=== PATIENT | female | born 1955 | race Caucasian/White ===

== ENCOUNTER 2016-11-01 06:25 | Day surgery (SDC) | payer MEDICARE, MEDICAID ==
[~2016-11-01 06:25] MED LIST: KETOROLAC TROMETHAMINE 0.45% 4 DROP/0.4 ML DROPERETTE OS PRN
[2016-11-01] MEDS: TROPICAMIDE 1% OPH SOLN 3 ML OS PRN ×3 (06:46→07:17)
[2016-11-01] MEDS: CYCLOPENTOLATE 0.2%/PHENYLEPHRINE 1% OPH SOLN 2 ML OS PRN ×3 (06:46→07:17)
[2016-11-01] MEDS: BESIFLOXACIN HCL 0.6% OPH SUSP 5 ML BOTTLE OS PRN ×3 (06:47→08:10)
[2016-11-01] MEDS: LIDOCAINE 3.5% OPH GEL/PF 1 ML/TUBE OS PRN ×3 (06:49→07:45)
[2016-11-01] MEDS ORDERED: LIDOCAINE 1% INJ-PF (10 MG/ML) 30 ML SDV ONE (07:11)
[2016-11-01] MEDS ORDERED: TOBRAMYCIN SULFATE/DEXAMETH OPH OINTMENT 3.5 GM ONE (07:11)
[2016-11-01] MEDS ORDERED: EPINEPHRINE INJ/PF 1 MG/1 ML AMPULE ONE (07:11)
[2016-11-01] MEDS ORDERED: CHONDR SU A NA/HYALUR INTRAOC KIT (SURGICARE) ONE (07:12)
[2016-11-01] MEDS ORDERED: MIDAZOLAM 2 MG/2 ML INJ ONE (07:21)
[2016-11-01] MEDS ORDERED: ONDANSETRON HCL INJ/PF 4 MG/2 ML SDV ONE (07:21)
[2016-11-01] MEDS ORDERED: FENTANYL CITRATE INJ/PF 100 MCG/2 ML AMPUL ONE (07:21)
[2016-11-01] MEDS ORDERED: LIDOCAINE 2% INJ-PF (20 MG/ML) 10 ML AMPUL ONE (07:21)
[2016-11-01] MEDS ORDERED: CHONDR SU A NA/HYALUR SOD 0.5 ML DISP.SYRIN ONE (08:32)
== END 2016-11-01 08:57 ==
LOC: SC 06:25
PROVIDERS: ATTEND Ophthalmology
PROC: 089330Z Drainage of Left Anterior Chamber with Drainage Device, Percutaneous Approach (ICD-10-PCS; 2016-11-01)
PROC: 08RK3JZ Replacement of Left Lens with Synthetic Substitute, Percutaneous Approach (ICD-10-PCS; principal; 2016-11-01 07:30)
DX: H25.12 Age-related nuclear cataract, left eye (principal); Z79.899 Other long term (current) drug therapy; Z98.41 Cataract extraction status, right eye; H40.1131 Primary open-angle glaucoma, bilateral, mild stage; I10 Essential (primary) hypertension; E78.00 Pure hypercholesterolemia, unspecified; E03.9 Hypothyroidism, unspecified; Z96.1 Presence of intraocular lens; Z88.5 Allergy status to narcotic agent
CPT/HCPCS: 66984; 0191T; C1783; V2630; J2250; J3490 ×5; A9270 ×2; J0171; J3010; J2405; 142

== ENCOUNTER → 2016-11-28 | Outpatient (CLI) | payer MEDICARE, MEDICAID ==
--- NOTE | 2016-11-28 12:39 | RADIOLOGY REPORT (SQ) ---
EXAM DESCRIPTION: U/S RETROPERITON (RENAL/AORTA) COMPLETED DATE/TIME: 11/28/2016 12:06 pm REASON FOR STUDY: CKD III (N18.3) N18.3 CHRONIC KIDNEY DISEASE, STAGE 3 (MODERATE) I12.9 HYPERTENS GIOVANNI CHRONIC KIDNEY DISEASE W STG 1-4/UNSP CHR COMPARISON: No abdominal imaging for comparison TECHNIQUE: Dynamic and static grayscale images acquired of the kidneys and bladder and recorded on P ACS. Additional selected color Doppler and spectral images recorded. LIMITATIONS: None. FINDINGS: RIGHT KIDNEY: Right kidney is 9 cm in length with diffuse cortical thinning and increased echogenicity. No hydronephrosis. In the upper pole right kidney, an echogenic 3.2 x 2.5 cm cortical mass is present. 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 LEFT KIDNEY: Left kidney is 8.2 cm in length with diffuse cortical thinning and increased cortical e chogenicity. No hydronephrosis. BLADDER: No masses. OTHER FINDINGS: No other significant finding. IMPRESSION: Small kidneys with increased cortical echogenicity and diffuse cortical thinning from me dical renal disease. No hydronephrosis. 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
== END ==
LOC: RAD 11:12
PROVIDERS: ATTEND Physician Assistant Medical
DX: I12.9 Hypertensive chronic kidney disease with stage 1 through stage 4 chronic kidney disease, or unspecified chronic kidney disease (principal); N18.3 Chronic kidney disease, stage 3 (moderate)
CPT/HCPCS: 76770

== ENCOUNTER 2017-07-03 09:39 | Emergency (ER) | payer MEDICARE, MEDICAID ==
[2017-07-03] MEDS ORDERED: NORMAL SALINE 1000 ML 1,000 ML IV ONE (10:19)
[2017-07-03] MEDS ORDERED: ONDANSETRON HCL INJ/PF 4 MG/2 ML SDV IV ONE (10:19)
[2017-07-03] MEDS ORDERED: PROCHLORPERAZINE EDISYLATE INJ 10 MG/2 ML VIAL IV ONE (10:19)
--- NOTE | 2017-07-03 10:57 | RADIOLOGY REPORT (SQ) ---
EXAM DESCRIPTION: CT HEAD WITHOUT COMPLETED DATE/TIME: 07/03/2017 10:20 am REASON FOR STUDY: hx of cva increase RLE RUe pain headache COMPARISON: April 2012 TECHNIQUE: Axial images acquired through the brain without intravenous contrast. Images reviewed wi th bone, brain and subdural windows. Additional sagittal and coronal reconstructions were generated. Images stored on PACS. All CT scanners at this facility use dose modulation, iterative reconstruction, and/or weight based d osing when appropriate to reduce radiation dose to as low as reasonably achievable (ALARA). [facility]: Dose Right [facility]: CareDose [facility]: Dose Right [facility]: Teradose 4D [facility]: [employer] RADIATION DOSE: mGy. LIMITATIONS: None. FINDINGS: VENTRICLES: Prominent. There is some asymmetry in the lateral ventricles with the left be ing larger than the right presumably related to compensatory enlargement due to the large area of inf arction in a left MCA distribution CEREBRUM: No masses. No hemorrhage. No midline shift. Areas of low density in the white matter mos t likely due to chronic micro-vascular ischemic change. Large area of encephalomalacia is identified in a left MCA distribution showing interval increase in size as compared to the previous study and i s consistent with an area of prior infarction. No evidence for acute infarction. CEREBELLUM: No masses. No hemorrhage. No alteration of density. No evidence for acute infarction. EXTRAAXIAL SPACES: Mild age-related involutional change. No fluid collections. No masses. ORBITS AND GLOBE: No intra- or extraconal masses. Normal contour of globe without masses. CALVARIUM: No fracture. PARANASAL SINUSES: No fluid or mucosal thickening. SOFT TISSUES: No mass or hematoma. OTHER: No other significant finding. IMPRESSION: MILD CHRONIC CHANGES OF ATROPHY AND MICROVASCULAR ISCHEMIA. Large left MCA infarct show ing interval increase in size as compared to the previous study. Other findings as noted above. EVIDENCE OF ACUTE STROKE: No TECHNICAL DOCUMENTATION: JOB ID: [id number] Quality ID # [id number]: Final reports with documentation of one or more dose reduction techniques (e.g., Au tomated exposure control, adjustment of the mA and/or kV according to patient size, use of iterative reconstruction technique) 2010 [employer]- All Rights Reserved Reading location - IP/workstation name: [email or web address]
[2017-07-03 11:14] LABS: ANION GAP 10 (5-19); BLOOD UREA NITROGEN 20 mg/dL (7-20); CALCIUM 9.4 mg/dL (8.4-10.2); CARBON DIOXIDE 26 mmol/L (22-30); CHLORIDE 108 mmol/L (98-107); GLUCOSE 95 mg/dL (75-110); POTASSIUM 4.4 mmol/L (3.6-5.0); SODIUM 144.4 mmol/L (137-145)
[2017-07-03] MEDS ORDERED: KETOROLAC TROMETHAMINE INJ/PF 30 MG/1 ML SDV IV ONE (11:23)
[2017-07-03] MEDS ORDERED: GABAPENTIN 100 MG CAPSULE PO ONE (11:23)
[2017-07-03 11:52] VITALS: BP 137/76
[2017-07-03] MEDS ORDERED: TRAMADOL HCL 50 MG TABLET PO ONE (11:53)
--- NOTE | 2017-07-03 11:59 | ER Document Report ---
ED General - General Chief Complaint: Pain Stated Complaint: RIGHT SIDE ARM/LEG PAIN Time Seen by Provider: 07/03/17 09:53 TRAVEL OUTSIDE OF THE [place] IN LAST 30 DAYS: No - HPI Patient complains to provider of: Right upper extremity right lower extremity pain Notes: Patient coming in for right upper extremity right lower extremity pain. Patient states is been increasing her last 3 weeks and currently is unbearable. Patient has a history of CVAs in the past mostly is nonverbal but is able to ensure yes/no questions due to expressive aphasia. Patient has contractures of her right upper extremity and right lower extremity. Patient denies any falls is able to deny any trauma. Patient through intravenous and the question states pain is sharp and shooting almost like electrical shocks. Patient denies any muscle spasms. Patient denies any fevers chills nausea vomiting abdominal pain chest pain diarrhea. - Related Data Allergies/Adverse Reactions: codeine [Codeine] Allergy (Unknown, Verified 10/24/16 14:44) Unknown reaction Past Medical History - Social History Smoking Status: Unknown if Ever Smoked Family History: Reviewed & Not Pertinent Patient has suicidal ideation: No Patient has homicidal ideation: No - Past Medical History Cardiac Medical History: Reports: Hx Coronary Artery Disease, Hx Heart Attack, Hx Hypertension - MEDICATED Denies: Hx Atrial Fibrillation, Hx Congestive Heart Failure, Hx Hypercholesterolemia, Hx Peripheral Vascular Disease, Hx Pulmonary Embolism, Hx Heart Murmur Pulmonary Medical History: Denies: Hx Asthma, Hx Bronchitis, Hx COPD, Hx Pneumonia, Hx Respiratory Failure, Hx Sleep Apnea, Hx Tuberculosis Neurological Medical History: Reports: Hx Cerebrovascular Accident - 2013 RT SIDED CONTRACTION UE, WHEELCHAIR BOUND, Hx Seizures Endocrine Medical History: Denies: Hx Graves' Disease, Hx Hyperthyroidism, Hx Hypothyroidism Renal/ Medical History: Reports: Hx Kidney Stones. Denies: Hx End Stage Renal Disease, Hx Ovarian Cysts, Hx Peritoneal Dialysis, Hx Pelvic Inflammatory Disease Malignancy Medical History: Reports: Hx Breast Cancer - biopsy of breast. Denies: Hx Cervical Cancer, Hx Leukemia, Hx Lung Cancer, Hx Ovarian Cancer GI Medical History: Reports: Hx Irritable Bowel. Denies: Hx Crohn's Disease, Hx Gastroesophageal Reflux Disease, Hx Hepatitis, Hx Hiatal Hernia, Hx Liver Failure, Hx Pancreatitis, Hx Ulcer Musculoskeltal Medical History: Denies Hx Arthritis, Denies Hx Fibromyalgia, Denies Hx Multiple Sclerosis, Denies Hx Muscular Dystrophy Psychiatric Medical History: Denies: Hx Bipolar Disorder, Hx Dementia, Hx Depression, Hx Post Traumatic Stress Disorder, Hx Schizophrenia Traumatic Medical History: Denies: Hx Fractures Infectious Medical History: Denies: Hx Hepatitis, Hx HIV Past Surgical History: Denies: Hx Colostomy, Hx Hysterectomy, Hx Mastectomy, Hx Open Heart Surgery, Hx Pacemaker - Immunizations Hx Diphtheria, Pertussis, Tetanus Vaccination: Yes - unknown Review of Systems - Review of Systems Constitutional: No symptoms reported EENT: No symptoms reported Cardiovascular: No symptoms reported Respiratory: No symptoms reported Gastrointestinal: No symptoms reported Genitourinary: No symptoms reported Female Genitourinary: No symptoms reported Musculoskeletal: Other - Extremity pain Skin: No symptoms reported Hematologic/Lymphatic: No symptoms reported Neurological/Psychological: No symptoms reported Physical Exam - Vital signs Vitals: Temp Pulse Resp BP Pulse Ox 98.3 F 71 18 152/97 H 97 07/03/17 09:45 07/03/17 09:45 07/03/17 09:45 07/03/17 09:45 07/03/17 09:45 Interpretation: Normal - General General appearance: Appears well, Alert - HEENT Head: Normocephalic, Atraumatic Eyes: Normal Pupils: PERRL - Respiratory Respiratory status: No respiratory distress Chest status: Nontender Breath sounds: Normal Chest palpation: Normal - Cardiovascular Rhythm: Regular Heart sounds: Normal auscultation Murmur: No - Abdominal Inspection: Normal Distension: No distension Bowel sounds: Normal Tenderness: Nontender Organomegaly: No organomegaly - Back Back: Normal, Nontender - Extremities General upper extremity: Normal inspection, Tender - Tenderness to palpation of the right upper extremity was no signs of trauma no bruising no sores pulses are intact there is a contracture of the right upper extremity left upper extremity is otherwise unaffected General lower extremity: Normal inspection, Tender - Tenderness to palpation of the right lower extremity was no signs of trauma no bruising no sores pulses are intact there is a contracture of the right upper extremity left upper extremity is otherwise unaffected - Neurological Neuro grossly intact: Yes Cognition: Normal Nolberto Coma Scale Eye Opening: Spontaneous Nolberto Coma Scale Verbal: Oriented Nolberto Coma Scale Motor: Obeys Commands [place] Coma Scale Total: 15 Speech: Normal - Psychological Associated symptoms: Normal affect, Normal mood - Skin Skin Temperature: Warm Skin Moisture: Dry Skin Color: Normal Course - Re-evaluation Re-evalutation: 07/03/17 14:23 CT scan and basic chemistry was performed showing no electrolyte abnormalities and no signs of acute stroke. Do believe patient symptoms more likely from nerves reconnecting more likely a neuropathic pain from her previous strokes. I explained this to the patient he states understanding also states understanding of treatment with Neurontin. At this time because the patient's continued pain will start patient on a small dose of tramadol for her pain. Patient refusing any IV pain medications. Patient otherwise looks to be stable to be discharged back to nursing care facility. - Vital Signs Vital signs: Temp Pulse Resp BP Pulse Ox 97.8 F 75 18 137/76 H 95 07/03/17 11:50 07/03/17 11:50 07/03/17 11:50 07/03/17 11:50 07/03/17 11:50 - Laboratory Result Diagrams: 07/03/17 10:30 Laboratory results interpreted by me: 07/03/17 10:30 Chloride 108 H Est GFR (Non-Af Amer) 58 L Discharge - Discharge Clinical Impression: Neuropathic pain, arm Neuropathic pain, leg Qualifiers: Laterality: right Qualified Code(s): G57.91 - Unspecified mononeuropathy of right lower limb Condition: Good Instructions: Neuropathy (OM) Additional Instructions: Patient was seen today in the ER for arm pain and leg pain that she describes as sharp and shooting. I do believe this is more neuropathic pain coming from her history of strokes in the past. CT scan laboratory studies not show any significant pathology. Will recommend treating the patient with Neurontin will give the patient a small prescription for Ultram narcotic pain medication however we recommend she follow-up with her primary care physician for further pain control or possibly be referred to pain management. Prescriptions: Gabapentin [Neurontin 100 mg Capsule] 100 mg PO Q12 #60 capsule Tramadol HCl [Ultram 50 mg Tablet] 50 mg PO ASDIR PRN #14 tablet PRN Reason: Referrals: GAMALIEL GR PA-C [Primary Care Provider] - Follow up in 3-5 days
== END 2017-07-03 12:01 ==
LOC: ER 09:39
DX: G62.9 Polyneuropathy, unspecified (principal); G57.91 Unspecified mononeuropathy of right lower limb; M79.601 Pain in right arm; I25.10 Atherosclerotic heart disease of native coronary artery without angina pectoris; I10 Essential (primary) hypertension; I25.2 Old myocardial infarction; Z88.6 Allergy status to analgesic agent; Z87.442 Personal history of urinary calculi; I69.920 Aphasia following unspecified cerebrovascular disease; I69.998 Other sequelae following unspecified cerebrovascular disease
CPT/HCPCS: 99284; 96361; 96374; 96375; 36415; 83735; 80048; 70450; J0780; J2405; J7030; A9270 ×2

== ENCOUNTER 2020-02-05 16:38 | Inpatient (IN) | payer MEDICARE, MEDICAID ==
[2020-02-05] MEDS ORDERED: NORMAL SALINE 1000 ML 1,000 ML IV ONE ×3 (18:01→19:53)
--- NOTE | 2020-02-05 18:08 | ER Document Report ---
ED Medical Screen (RME) - General TRAVEL OUTSIDE OF THE [place]. IN LAST 30 DAYS: No <CHRISTOFER SMYTH - Last Filed: 02/05/20 18:31> <SARAH PEÑA JR - Last Filed: 02/05/20 19:31> - General Chief Complaint: Blood Pressure Problem Stated Complaint: BLOOD PRESSURE Time Seen by Provider: 02/05/20 17:58 Primary Care Provider: BETTY GARCIA MD [Primary Care Provider] - Follow up as needed Notes: 64-year-old female sent from [facility] for chief complaint of abnormal labs with elevated renal functioning. Per EMS report patient was di scharged from [facility] after she had been in the Covid unit, she is positive for COVID-19 3 weeks ago, reportedly for the past 2 days patient has had limited activity and has not been drinking anything. Patient has very limited history ability and I cannot obtain any meaningful history from her. She was initially hypotensive and EMS started lactated ringer bolus. No fever. (CHRISTOFER SMYTH) - Related Data Allergies/Adverse Reactions: codeine [Codeine] Allergy (Unknown, Verified 02/05/20 17:55) Unknown reaction tramadol [From Ultram] Allergy (Verified 02/05/20 17:55) Past Medical History - Past Medical History Cardiac Medical History: Reports: Hx Coronary Artery Disease, Hx Heart Attack, Hx Hypercholesterolemia, Hx Hypertension - MEDICATED Denies: Hx Atrial Fibrillation, Hx Congestive Heart Failure, Hx Peripheral Vascular Disease, Hx Pulmonary Embolism, Hx Heart Murmur Pulmonary Medical History: Denies: Hx Asthma, Hx Bronchitis, Hx COPD, Hx Pneumonia, Hx Respiratory Failure, Hx Sleep Apnea, Hx Tuberculosis Neurological Medical History: Reports: Hx Cerebrovascular Accident - 2013 RT SIDED CONTRACTION UE, WHEELCHAIR BOUND, Hx Seizures. Denies: Hx Parkinson's Disease Endocrine Medical History: Denies: Hx Graves' Disease, Hx Hyperthyroidism, Hx Hypothyroidism Renal/ Medical History: Reports: Hx Kidney Stones. Denies: Hx End Stage Renal Disease, Hx Ovarian Cysts, Hx Peritoneal Dialysis, Hx Pelvic Inflammatory Disease Malignancy Medical History: Reports: Hx Breast Cancer - biopsy of breast. Denies: Hx Cervical Cancer, Hx Leukemia, Hx Lung Cancer, Hx Ovarian Cancer GI Medical History: Reports: Hx Gastroesophageal Reflux Disease, Hx Irritable Bowel. Denies: Hx Crohn's Disease, Hx Hepatitis, Hx Hiatal Hernia, Hx Liver Failure, Hx Pancreatitis, Hx Ulcer Musculoskeltal Medical History: Denies Hx Arthritis, Denies Hx Fibromyalgia, Denies Hx Multiple Sclerosis, Denies Hx Muscular Dystrophy, Denies Hx Systemic Lupus Erythematosus Psychiatric Medical History: Reports: Hx Depression Denies: Hx Bipolar Disorder, Hx Dementia, Hx Post Traumatic Stress Disorder, Hx Schizophrenia Traumatic Medical History: Denies: Hx Fractures Infectious Medical History: Denies: Hx Hepatitis, Hx HIV Past Surgical History: Denies: Hx Colostomy, Hx Hysterectomy, Hx Mastectomy, Hx Open Heart Surgery, Hx Pacemaker - Immunizations Hx Diphtheria, Pertussis, Tetanus Vaccination: Yes - unknown <CHRISTOFER SMYTH - Last Filed: 02/05/20 18:31> Physical Exam - General General appearance: Other - Patient seems to be stuck in position slouching to the left side. She is awake and alert, she is responsive. No signs of distress. - Cardiovascular Rhythm: Regular. No: Tachycardia Heart sounds: Normal auscultation, S1 appreciated, S2 appreciated <CHRISTOFER SMYTH - Last Filed: 02/05/20 18:31> - Vital signs Vitals: Resp 15 02/05/20 16:59 Course <CHRISTOFER SMYTH - Last Filed: 02/05/20 18:31> - Laboratory Results Result Diagrams: 02/05/20 17:10 02/05/20 17:10 <SARAH PEÑA JR - Last Filed: 02/05/20 19:31> - Re-evaluation Re-evalutation: Patient has limited mobility, no history giving ability at this time although she is awake and does not appear to be in distress. She is not tachycardic or febrile but she is hypotensive, however I am not sure this is accurate because of patient's positioning and specifically her positioning with her legs. We are obtaining a manual. Work-up pending. Starting IV fluids. I have greeted and performed a rapid initial assessment of this patient. A comprehensive ED assessment and evaluation of the patient, analysis of test r esults and completion of the medical decision making process will be conducted by additional ED providers. (CHRISTOFER SMYTH) - Vital Signs Vital signs: Temp Pulse Resp BP Pulse Ox 98.1 F 15 86/49 L 99 02/05/20 17:01 02/05/20 18:46 02/05/20 18:46 02/05/20 18:46 - Laboratory Results Laboratory Results Interpreted: 02/05/20 02/05/20 02/05/20 17:10 17:10 17:10 WBC 10.8 H Hgb 11.5 L RDW 16.1 H Lymph % (Auto) 9.3 L Absolute Neuts (auto) 9.0 H Seg Neutrophils % 83.0 H PT 16.8 H VBG pH VBG pCO2 VBG HCO3 Sodium 154.1 H Potassium 7.0 H* Chloride 122 H Carbon Dioxide 9 L* Anion Gap 23 H BUN 219 H Creatinine 16.11 H Est GFR ( Amer) 3 L Est GFR (MDRD) Non-Af 2 L Direct Bilirubin 0.9 H Alkaline Phosphatase 153 H 02/05/20 17:10 WBC Hgb RDW Lymph % (Auto) Absolute Neuts (auto) Seg Neutrophils % PT VBG pH 7.12 L* VBG pCO2 33.3 L VBG HCO3 10.5 L Sodium Potassium Chloride Carbon Dioxide Anion Gap BUN Creatinine Est GFR ( Amer) Est GFR (MDRD) Non-Af Direct Bilirubin Alkaline Phosphatase Doctor's Discharge <CHRISTOFER SMYTH - Last Filed: 02/05/20 18:31> <SARAH PEÑA JR - Last Filed: 02/05/20 19:31> - Discharge Referrals: BETTY GARCIA MD [Primary Care Provider] - Follow up as needed
--- NOTE | 2020-02-05 18:30 | RADIOLOGY REPORT (SQ) ---
EXAM DESCRIPTION: CHEST SINGLE VIEW IMAGES COMPLETED DATE/TIME: 02/05/2020 6:21 pm REASON FOR STUDY: hypotension COMPARISON: 2012 EXAM PARAMETERS: NUMBER OF VIEWS: One view. TECHNIQUE: Single frontal radiographic view of the chest acquired. RADIATION DOSE: NA LIMITATIONS: None. FINDINGS: LUNGS AND PLEURA: No opacities, masses or pneumothorax. No pleural effusion. MEDIASTINUM AND HILAR STRUCTURES: No masses. Contour normal. HEART AND VASCULAR STRUCTURES: Heart normal in size. Normal vasculature. BONES: No acute findings. HARDWARE: None in the chest. OTHER: No other significant finding. IMPRESSION: NO ACUTE RADIOGRAPHIC FINDING IN THE CHEST. TECHNICAL DOCUMENTATION: JOB ID: [id number] 2010 [employer]- All Rights Reserved Reading location - IP/workstation name: [email or web address]
[2020-02-05 18:43] LABS: VENOUS BLOOD BASE EXCESS -17.8 mmol/L; VENOUS BLOOD HCO3 10.5 mmol/L (20-32); VENOUS BLOOD PCO2 33.3 mmHg (35-63)
[2020-02-05 18:46] LABS: VENOUS BLOOD PH 7.12 (7.30-7.42)
[2020-02-05 18:49] LABS: ABSOLUTE BASOPHILS # (AUTO) 0.1 10^3/uL (0.0-0.2); ABSOLUTE EOSINOPHILS # (AUTO) 0.1 10^3/uL (0.0-0.6); ABSOLUTE MONOCYTES (AUTO) 0.7 10^3/uL (0.1-1.4); BASOPHILS % (AUTO) 0.6 % (0-2); EOSINOPHILS % (AUTO) 0.8 % (0-6); HEMOGLOBIN 11.5 g/dL (12.0-15.5); LYMPHOCYTES % (AUTO) 9.3 % (13-45); MEAN CORPUSCULAR HEMOGLOBIN 30.1 pg (27.0-33.4); MEAN CORPUSCULAR VOLUME 94 fl (80-97); MONOCYTES % (AUTO) 6.3 % (3-13); PLATELET COUNT 221 10^3/uL (150-450); RED BLOOD COUNT 3.83 10^6/uL (3.72-5.28); RED CELL DISTRIBUTION WIDTH 16.1 % (11.5-14.0); TOTAL CELLS COUNTED % (AUTO) 100 %; WHITE BLOOD COUNT 10.8 10^3/uL (4.0-10.5)
[2020-02-05 18:50] LABS: ALBUMIN 3.8 g/dL (3.5-5.0); ALKALINE PHOSPHATASE 153 U/L (38-126); ASPARTATE AMINO TRANSFERASE 24 U/L (14-36); BILIRUBIN,DIRECT 0.9 mg/dL (0.0-0.4); BILIRUBIN,TOTAL 1.1 mg/dL (0.2-1.3); CALCIUM 10.2 mg/dL (8.4-10.2); GLUCOSE 103 mg/dL (75-110); TOTAL PROTEIN 7.3 g/dL (6.3-8.2)
[2020-02-05 18:53] LABS: INTERNATIONAL RATION (INR) 1.34; PROTHROMBIN TIME 16.8 SEC (11.4-15.4)
[2020-02-05 18:56] LABS: CHLORIDE 122 mmol/L (98-107)
[2020-02-05 19:02] LABS: BLOOD UREA NITROGEN 219 mg/dL (7-20)
[2020-02-05 19:08] LABS: CARBON DIOXIDE 9 mmol/L (22-30)
[2020-02-05 19:11] LABS: ANION GAP 23 (5-19)
[2020-02-05] MEDS ORDERED: NORMAL SALINE 1000 ML 1,000 ML IV PRN (19:12)
[2020-02-05] MEDS ORDERED: INSULIN REG, HUMAN 100 UNIT/ML 3 ML VIAL (PYX) IV ONE (19:14)
[2020-02-05] MEDS ORDERED: DEXTROSE 50%-WATER 25 GM/50 ML DISP.SYRIN IV ONE (19:15)
--- NOTE | 2020-02-05 19:24 | RADIOLOGY REPORT (SQ) ---
EXAM DESCRIPTION: CT HEAD WITHOUT IMAGES COMPLETED DATE/TIME: 02/05/2020 7:04 pm REASON FOR STUDY: AMS COMPARISON: 07/03/2017 TECHNIQUE: Axial images acquired through the brain without intravenous contrast. Images reviewed wi th bone, brain and subdural windows. Additional sagittal and coronal reconstructions were generated. Images stored on PACS. All CT scanners at this facility use dose modulation, iterative reconstruction, and/or weight based d osing when appropriate to reduce radiation dose to as low as reasonably achievable (ALARA). [facility]: Dose Right [facility]: CareDose [facility]: Dose Right [facility]: Teradose 4D [facility]: [employer] RADIATION DOSE: CT Rad equipment meets quality standard of care and radiation dose reduction techniq ues were employed. CTDIvol: 53.2 mGy. DLP: 1044 mGy-cm. mGy. LIMITATIONS: None. FINDINGS: VENTRICLES: Normal size and contour. CEREBRUM: No masses. No hemorrhage. No midline shift. Encephalomalacia in the left frontotemporal area. Stable. No evidence for acute infarction. Areas of low density in the white matter most likel y chronic small vessel ischemic changes. CEREBELLUM: No masses. No hemorrhage. No alteration of density. No evidence for acute infarction. EXTRAAXIAL SPACES: No fluid collections. No masses. ORBITS AND GLOBE: No intra- or extraconal masses. Normal contour of globe without masses. CALVARIUM: No fracture. PARANASAL SINUSES: There is opacification of the right maxillary sinus. SOFT TISSUES: No mass or hematoma. OTHER: No other significant finding. 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 Right maxillary sinus disease. No acute finding. EVIDENCE OF ACUTE STROKE: NO. COMMENT: Quality ID # [id number]: Final reports with documentation of one or more dose reduction techniques (e.g., Automated exposure control, adjustment of the mA and/or kV according to patient size, use of iterative reconstruction technique) TECHNICAL DOCUMENTATION: JOB ID: [id number] 2010 [employer]- All Rights Reserved Reading location - IP/workstation name: [email or web address]
--- NOTE | 2020-02-05 19:40 | ER Document Report ---
ED General - General Chief Complaint: Blood Pressure Problem Stated Complaint: BLOOD PRESSURE Time Seen by Provider: 02/05/20 17:58 Primary Care Provider: BETTY GARCIA MD [Primary Care Provider] - Follow up as needed Mode of Arrival: Medic Information source: Emergency Med Personnel Notes: Course - Re-evaluation Re-evalutation: PER BRENT CARPIO 02/05/20 18:31 Manual blood pressure is 80s over 50s. IV fluids infusing. - Vital Signs Vital signs: Temp Pulse Resp BP Pulse Ox 98.1 F 17 88/76 L 91 L 02/05/20 17:01 02/05/20 17:15 02/05/20 17:15 02/05/20 17:15 - Laboratory Results Critical Laboratory Results Reviewed: No Critical Results - Radiology Results Critical Radiology Results Reviewed: No Critical Resultsiginal Note: ED Medical Screen (Brent Carpio) - General TRAVEL OUTSIDE OF THE [place] IN LAST 30 DAYS: No <BRENT SMYTH - Last Filed: 02/05/20 18:31> <SARAH PEÑA JR - Last Filed: 02/05/20 19:31> - General Chief Complaint: Blood Pressure Problem Stated Complaint: BLOOD PRESSURE Time Seen by Provider: 02/05/20 17:58 Primary Care Provider: BETTY GARCIA MD [Primary Care Provider] - Follow up as needed Notes: 64-year-old female sent from [facility] for chief complaint of abnormal labs with elevated renal functioning. Per EMS report patient was discharged from [facility] after she had been in the Covid unit, she is positive for COVID-19 3 weeks ago, reportedly for the past 2 days patient has had limited activity and has not been drinking anything. Patient has very limited history ability and I cannot obtain any meaningful history from her. She was initially hypotensive and EMS started lactated ringer bolus. No fever. (BRENT SMYTH) MY NOTES 64-year-old female arrives by EMS from [facility] where patient h as had no to little p.o. input for least 2 days. Her BUN and creatinine are high today with a BUN of 219 and a creatinine of 16 as compared to last year with a creatinine of one-point 21 July 2018. As per note above and from JORY Henning.. Patient [facility] [place] last month with a right sided paresthesia secondary to CVA which shows up on CT as old left frontal temporal infarct and also right maxillary sinus disease chest x-ray NAD. And able to say yes and no but otherwise aphasic. Patient's blood pressure continues to be low at 76/35 with heart rate 93. Nursing staff applied a bear hugger after finding her temperature was only 94.5. This is around 2000 hrs. also patient has a potassium of 7.0 and was given D50 1 amp and 10 units of insulin. Patient was sent here because of abnormal labs and also with chief complaint of hypotension this is per EMS report. 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 She is DNR. She has temperature 98.7 while at the intermediate today. Her blood pressure is 143/82 there today. Medications include nicotine Tylenol Zocor Prozac Synthroid lisinopril Coreg verapamil Lasix Keppra Esko Flexeril ibuprofen and has a past medical history of hypertension GERD aphasia depression and PEG placement and a social history of nondrinker non-smoker and allergies to codeine and tramadol Ultram. Patient usually is alert and oriented x2 with difficulty communicating needs and patient is incontinent of urine and stool. TRAVEL OUTSIDE OF THE [place] IN LAST 30 DAYS: No - HPI Onset: Other - x 2 days Onset/Duration: Persistent Severity: Moderate Pain Level: 2 Associated symptoms: Body/muscle aches, Weakness Exacerbated by: Movement Relieved by: Denies Similar symptoms previously: No Recently seen / treated by doctor: Yes - Related Data Allergies/Adverse Reactions: codeine [Codeine] Allergy (Unknown, Verified 02/05/20 17:55) Unknown reaction tramadol [From Ultram] Allergy (Verified 02/05/20 17:55) Past Medical History - General Information source: Emergency Med Personnel - Social History Smoking Status: Unknown if Ever Smoked Cigarette use (# per day): No Chew tobacco use (# tins/day): No Smoking Education Provided: No Frequency of alcohol use: None Drug Abuse: None Family History: Reviewed & Not Pertinent Patient has suicidal ideation: No Patient has homicidal ideation: No - Past Medical History Cardiac Medical History: Reports: Hx Coronary Artery Disease, Hx Heart Attack, Hx Hypercholesterolemia, Hx Hypertension - MEDICATED Denies: Hx Atrial Fibrillation, Hx Congestive Heart Failure, Hx Peripheral Vascular Disease, Hx Pulmonary Embolism, Hx Heart Murmur Pulmonary Medical History: Denies: Hx Asthma, Hx Bronchitis, Hx COPD, Hx Pneumonia, Hx Respiratory Failure, Hx Sleep Apnea, Hx Tuberculosis Neurological Medical History: Reports: Hx Cerebrovascular Accident - 2013 RT SIDED CONTRACTION UE, WHEELCHAIR BOUND, Hx Seizures. Denies: Hx Parkinson's Disease Endocrine Medical History: Denies: Hx Graves' Disease, Hx Hyperthyroidism, Hx Hypothyroidism Renal/ Medical History: Reports: Hx Kidney Stones. Denies: Hx End Stage Renal Disease, Hx Ovarian Cysts, Hx Peritoneal Dialysis, Hx Pelvic Inflammatory Disease Malignancy Medical History: Reports: Hx Breast Cancer - biopsy of breast. Denies: Hx Cervical Cancer, Hx Leukemia, Hx Lung Cancer, Hx Ovarian Cancer GI Medical History: Reports: Hx Gastroesophageal Reflux Disease, Hx Irritable Bowel. Denies: Hx Crohn's Disease, Hx Hepatitis, Hx Hiatal Hernia, Hx Liver Failure, Hx Pancreatitis, Hx Ulcer Musculoskeletal Medical History: Denies Hx Arthritis, Denies Hx Fibromyalgia, Denies Hx Multiple Sclerosis, Denies Hx Muscular Dystrophy, Denies Hx Systemic Lupus Erythematosus Psychiatric Medical History: Reports: Hx Depression Denies: Hx Bipolar Disorder, Hx Dementia, Hx Post Traumatic Stress Disorder, Hx Schizophrenia Traumatic Medical History: Denies: Hx Fractures Infectious Medical History: Denies: Hx Hepatitis, Hx HIV Past Surgical History: Denies: Hx Colostomy, Hx Hysterectomy, Hx Mastectomy, Hx Open Heart Surgery, Hx Pacemaker - Immunizations Hx Diphtheria, Pertussis, Tetanus Vaccination: Yes - unknown Review of Systems - Review of Systems -: Yes ROS unobtainable due to patient's medical condition Constitutional: See HPI, Chills, Malaise, Weakness, Recent illness EENT: No symptoms reported Cardiovascular: No symptoms reported Respiratory: No symptoms reported Gastrointestinal: No symptoms reported Genitourinary: No symptoms reported Female Genitourinary: No symptoms reported Musculoskeletal: No symptoms reported Skin: No symptoms reported Hematologic/Lymphatic: No symptoms reported Neurological/Psychological: No symptoms reported Physical Exam - Vital signs Vitals: Resp 15 02/05/20 16:59 Interpretation: Hypotensive, Tachycardic - General General appearance: Alert, Anxious - HEENT Head: Normocephalic, Atraumatic Eyes: Normal Extraocular movements intact: Yes Eyelashes: Normal Pupils: PERRL Ears: Normal External canal: Normal Mouth/Lips: Normal Mucous membranes: Dry Pharynx: Normal - Patient able to follow commands by opening her mouth and sticking out her tongue Neck: Normal - Respiratory Respiratory status: No respiratory distress Chest status: Nontender Breath sounds: Normal Chest palpation: Normal - Cardiovascular Rhythm: Tachycardia Heart sounds: Normal auscultation Murmur: No - Abdominal Inspection: Normal Distension: No distension Bowel sounds: Normal Tenderness: Nontender Organomegaly: No organomegaly - Rectal Tenderness: No - Rectal temperature 94.5 - Genitourinary External exam: Normal - As per nursing staff - Back Back: Normal, Nontender - Extremities General upper extremity: Normal color, Other - Left arm with PICC line ; right arm hemiparesis General lower extremity: Tender - Tender left femur on palpation, Normal color, Normal temperature, Other - Right lower extremity hemiparesis. No: Isis's sign - Neurological Neuro grossly intact: Yes Cognition: Normal Orientation: AAOx4 Nolberto Coma Scale Eye Opening: Spontaneous Nolberto Coma Scale Verbal: Oriented Nolberto Coma Scale Motor: Obeys Commands Seneca Coma Scale Total: 15 Speech: Normal Motor strength normal: LUE, RUE, LLE, RLE Sensory: Normal - Psychological Associated symptoms: Normal affect, Normal mood - Skin Skin Temperature: Warm Skin Moisture: Dry Skin Color: Normal Course - Vital Signs Vital signs: Temp Pulse Resp BP Pulse Ox 98.3 F 20 94/54 L 95 02/06/20 00:16 02/06/20 00:16 02/06/20 00:16 02/06/20 00:16 - Laboratory Results Result Diagrams: 02/05/20 17:10 02/05/20 22:25 Laboratory Results Interpreted: 02/05/20 02/05/20 02/05/20 17:10 17:10 17:10 WBC 10.8 H Hgb 11.5 L RDW 16.1 H Lymph % (Auto) 9.3 L Absolute Neuts (auto) 9.0 H Seg Neutrophils % 83.0 H PT 16.8 H VBG pH VBG pCO2 VBG HCO3 Sodium 154.1 H Potassium 7.0 H* Chloride 122 H Carbon Dioxide 9 L* Anion Gap 23 H BUN 219 H Creatinine 16.11 H Est GFR ( Amer) 3 L Est GFR (MDRD) Non-Af 2 L Glucose POC Glucose Calcium Direct Bilirubin 0.9 H Alkaline Phosphatase 153 H Urine Protein Urine Ketones Urine Blood Leukocyte Esterase Rfl Urine Ascorbic Acid 02/05/20 02/05/20 02/05/20 17:10 19:43 19:52 WBC Hgb RDW Lymph % (Auto) Absolute Neuts (auto) Seg Neutrophils % PT VBG pH 7.12 L* VBG pCO2 33.3 L VBG HCO3 10.5 L Sodium Potassium Chloride Carbon Dioxide Anion Gap BUN Creatinine Est GFR ( Amer) Est GFR (MDRD) Non-Af Glucose POC Glucose 118 H Calcium Direct Bilirubin Alkaline Phosphatase Urine Protein 100 H Urine Ketones TRACE H Urine Blood SMALL H Leukocyte Esterase Rfl LARGE H Urine Ascorbic Acid 40 H 02/05/20 22:25 WBC Hgb RDW Lymph % (Auto) Absolute Neuts (auto) Seg Neutrophils % PT VBG pH VBG pCO2 VBG HCO3 Sodium 148.0 H Potassium 5.1 H D Chloride 127 H Carbon Dioxide 9 L* Anion Gap BUN 185 H D Creatinine 12.51 H Est GFR ( Amer) 4 L Est GFR (MDRD) Non-Af 3 L Glucose 275 H POC Glucose Calcium 8.0 L Direct Bilirubin Alkaline Phosphatase Urine Protein Urine Ketones Urine Blood Leukocyte Esterase Rfl Urine Ascorbic Acid Critical Laboratory Results Reviewed: Yes Attending or Supervising Physician who Reviewed Labs: SARAH PEÑA JR - Radiology Results Radiology Results Interpreted: 02/05/20 20:03 dr sears radiology Critical Radiology Results Reviewed: Yes Attending or Supervising Physician who Reviewed Radiology: SARAH PEÑA JR - EKG Interpretation by Ca EKG shows normal: Sinus rhythm Rate: Normal Rhythm: NSR - Patient with heart rate 90 bpm with sinus rhythm and a very complex possibly supraventricular and abnormal T waves consider ischemia diffusely in her leads with T wave depression around V3. Critical Care Note - Critical Care Note Comments: I spoke with Dr. Isaac Whitten at 2018 about this patient who has hypothermia 94.5 temperature rectally and BUN to 19 creatinine 16 after getting out of [facility] Covid unit and status post CVA with hemiparesis and aphasia. She has now a DNR. I will speak with Dr. Cline at 2019. At [address] Cline and he advises ICU potential. I spoke with MAYE Rosario at 2099 and he advises continuing with IVs with IV fluids and also he will see and evaluate this patient in room #7. We warned about Covid condition of patient that was probably the etiology of her CVA in December. She is now in Covid section room #7. MAYE Rosario at 2355 advises he will keep the patient after also rediscussing this with Dr. Cline. Discharge - Discharge Clinical Impression: UTI (urinary tract infection) Qualifiers: Urinary tract infection type: acute cystitis Hematuria presence: without hematuria Qualified Code(s): N30.00 - Acute cystitis without hematuria Sepsis Qualifiers: Sepsis type: sepsis due to unspecified organism Sepsis acute organ dysfunction status: unspecified Qualified Code(s): A41.9 - Sepsis, unspecified organism Hemiparesis Qualifiers: Hemiparesis etiology: unspecified Hemiparesis laterality: unspecified Qualified Code(s): G81.90 - Hemiplegia, unspecified affecting unspecified side Hypotension Qualifiers: Hypotension type: unspecified hypotension type Qualified Code(s): I95.9 - Hypotension, unspecified Condition: Stable Disposition: ADMITTED INPATIENT Admitting Provider: MAYE Rosario Unit Admitted: ICU Referrals: BETTY GARCIA MD [Primary Care Provider] - Follow up as needed
[2020-02-05] MEDS ORDERED: VANCOMYCIN HCL INJ 1000 MG VIAL IV ONE (19:47)
[2020-02-05] MEDS ORDERED: PIPERACILLIN/TAZOBACTAM 3.375 GM VIAL IV ONE (19:48)
[2020-02-05] MEDS ORDERED: CEFEPIME 1 GM/D5W RTU 1 GM/50 ML RTUPB IV ONE (19:49)
[2020-02-05 19:57] LABS: APPEARANCE,URINE TURBID; BILIRUBIN,URINE NEGATIVE (NEGATIVE); COLOR,URINE YELLOW; GLUCOSE, URINE NEGATIVE (NEGATIVE); KETONES,URINE TRACE mg/dL (NEGATIVE); PROTEIN,URINE 100 mg/dL (NEGATIVE); URINE SPECIFIC GRAVITY 1.018; UROBILINOGEN,URINE NEGATIVE mg/dL (<2.0)
--- NOTE | 2020-02-05 21:26 | EKG REPORT ---
SEVERITY:- ABNORMAL ECG - SINUS RHYTHM ABERRANT COMPLEX, POSSIBLY SUPRAVENTRICULAR ABNORMAL T, CONSIDER ISCHEMIA, DIFFUSE LEADS : Confirmed by: Lizet Jesus MD 05-Feb-2020 21:25:33
--- NOTE | 2020-02-05 21:52 | RADIOLOGY REPORT (SQ) ---
CLINICAL HISTORY: kidney US per Alona Whitten COMPARISON: None. TECHNIQUE: US RETROPERITONEUM 02/05/2020 8:16 PM [facility]LL[facility] CUTTER FINDINGS: Right kidney measures 11 cm and left kidney measures 8 cm. Left kidney is poorly seen. Both kidneys are upper chronic. There is no hydronephrosis. 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 IMPRESSION: No definite acute findings.
[2020-02-05 22:52] LABS: CHLORIDE 127 mmol/L (98-107); GLUCOSE 275 mg/dL (75-110)
[2020-02-05 22:58] LABS: ANION GAP 12 (5-19)
[2020-02-05 23:00] LABS: BLOOD UREA NITROGEN 185 mg/dL (7-20)
[2020-02-05 23:06] LABS: POTASSIUM 5.1 mmol/L (3.6-5.0)
[2020-02-05 23:07] LABS: CARBON DIOXIDE 9 mmol/L (22-30)
--- NOTE | 2020-02-06 04:53 | CRITICAL CARE ADMISSION REPORT ---
HPI Date:: 02/06/20 Time:: 04:20 Reason for ICU Reason:: Severe dehydration with metabolic derangement. Admission Date/Time & PCP: Admission Date/Time: 02/06/20 00:55 Primary Care Provider: BETTY GARCIA HPI: 64-year-old female with a remote history of intracranial bleed, CAD status post CO and GERD. She was admitted from a residential following a COVID-19 infection 3 weeks ago complicated by a CVA. Over the past 48 hours, patient has had very limited activity and has not had any p.o. intake. She presented with mental status changes, hypotension and severe metabolic derangement. Initially, her potassium was 7.0, sodium bicarb was 9 and BUN/CR was 219/16. She received multiple fluid boluses in the emergency department as well as insulin and glucose which improved her potassium to 5.1 and her BUN/CR is also trending downward. Her hypotension also improved with increased fluids. History obtained from:: Emergency room physician notes. - Diagnosis/Plan (1) Hypotension Qualifiers: Hypotension type: unspecified hypotension type Qualified Code(s): I95.9 - Hypotension, unspecified Is this a current diagnosis for this admission?: Yes Plan: Continue Levophed at 120 mL an hour. No indication for vasoactive medication at this time. Follow CXR due to high volume resuscitation needs. (2) Sepsis Qualifiers: Sepsis type: sepsis due to unspecified organism Sepsis acute organ dys function status: unspecified Qualified Code(s): A41.9 - Sepsis, unspecified organism Is this a current diagnosis for this admission?: Yes Plan: Patient has been responding well to IV fluids. Continue IV vancomycin and cefepime. Continue IV fluids. (3) UTI (urinary tract infection) Qualifiers: Urinary tract infection type: acute cystitis Hematuria presence: without hematuria Qualified Code(s): N30.00 - Acute cystitis without hematuria Is this a current diagnosis for this admission?: Yes Plan: Given mental status changes and large amount of WBCs found in urine. Patient possibly has a urinary tract infection. Urine cultures pending. Treating empirically with vancomycin and cefepime. Narrow spectrum of antibiotics according to urine culture. Plan Summary: Patient's metabolic derangement as well as hypotension is most likely secondary to very poor fluid intake over the past 48 or more hours. She is responding v nelson well to volume resuscitation. Continue IV fluids with LR at 120 mL an hour over the next 12 hours. No indication for vasoactive medications at this time. Follow electrolytes closely with BMP every 6. Check chest x-ray for signs of effusion given large volume resuscitation requirements. Past Medical History Cardiac Medical History: Reports: Coronary Artery Disease, Myocardial Infarction, Hyperlipidema, Hypertension - MEDICATED Denies: Atrial Fibrillation, Congestive Heart Failure, Peripheral Vascular Disease, Pulmonary Embolism, Heart Murmur Pulmonary Medical History: Denies: Asthma, Bronchitis, Chronic Obstructive Pulmonary Disease (COPD), Pneumonia, Respiratory Failure, Sleep Apnea, Tuberculosis Neurological Medical History: Reports: Seizures Endocrine Medical History: Denies: Hyperthyroidism, Hypothyroidism Renal/ Medical History: Denies: End Stage Renal Disease Malignancy Medical History: Reports: Breast Cancer - biopsy of breast Denies: Cervical Cancer, Leukemia, Lung Cancer, Ovarian Cancer GI Medical History: Reports: Gastroesophageal Reflux Disease Denies: Crohn's Disease, Hepatitis, Hiatal Hernia Musculoskeltal Medical History: Denies: Arthritis, Fibromyalgia Psychiatric Medical History: Reports: Depression Denies: Bipolar Disorder, Dementia, Post Traumatic Stress Disorder Hematology: Denies: Anemia, Hemophilia, Sickle Cell Disease Infectious Medical History: Denies: HIV Past Surgical History Past Surgical History: Denies: Amputation, Colostomy, Hysterectomy, Mastectomy, Pacemaker Social/Family History - Social History Smoking Status: Unknown if Ever Smoked Hx Recreational Drug Use: No Hx Prescription Drug Abuse: No - Medication/Allergies Home Medications: Levetiracetam [Keppra 500 Mg Tablet] 500 mg PO Q12 04/24/12 Furosemide [Lasix 20 mg Tablet] 20 mg PO BID 12/30/13 Levothyroxine Sodium [Synthroid] 50 mcg PO QAM 12/30/13 Mirtazapine [Remeron] 15 mg PO QHS 12/30/13 Simvastatin [Zocor 20 mg Tablet] 20 mg PO QHS 12/30/13 Carvedilol [Coreg 12.5 mg Tablet] 25 mg PO Q12 06/02/14 Lisinopril [Prinivil 10 mg Tablet] 20 mg PO QAM 06/02/14 Latanoprost [Xalatan 0.005% Oph Soln 2.5 ml] 1 drop OP QHS 10/12/16 Verapamil HCl [Calan 80 mg Tablet] 40 mg PO Q8 08/24/17 Gabapentin [Neurontin 100 mg Capsule] 100 mg PO Q12 #60 capsule 07/03/17 Tramadol HCl [Ultram 50 mg Tablet] 50 mg PO ASDIR PRN #14 tablet 07/03/17 Allergies/Adverse Reactions: codeine [Codeine] Allergy (Unknown, Verified 02/05/20 17:55) Unknown reaction tramadol [From Ultram] Allergy (Verified 02/05/20 17:55) Review of Systems ROS unobtainable: Due to mental status Physical Exam Vital Signs: Temp Pulse Resp BP Pulse Ox 97.9 F 98 18 91/49 L 96 02/06/20 03:55 02/06/20 01:55 02/06/20 03:01 02/06/20 03:01 02/06/20 03:01 Intake & Output 02/04/20 02/05/20 02/06/20 06:59 06:59 06:59 Intake Total 3050 Output Total 205 Balance 2845 Weight 68.5 kg Weight/Height Weight 68.5 kg Height 5 ft General appearance: PRESENT: no acute distress, cooperative Head exam: PRESENT: atraumatic, normocephalic Eye exam: PRESENT: EOMI, PERRLA Ear exam: PRESENT: normal external ear exam Mouth exam: PRESENT: moist, neck supple Neck exam: PRESENT: full ROM Respiratory exam: PRESENT: clear to auscultation carl, symmetrical, unlabored Cardiovascular exam: PRESENT: RRR, +S1, +S2 Pulses: PRESENT: normal carotid pulses, normal radial pulses, +2 pedal pulses bilateral Vascular exam: PRESENT: normal capillary refill GI/Abdominal exam: PRESENT: normal bowel sounds Musculoskeletal exam: PRESENT: normal inspection Neurological exam: PRESENT: altered, CN II-XII grossly intact Laboratory/Radiographs Laboratory Results: 02/05/20 17:10 02/05/20 22:25 02/05/20 02/05/20 02/05/20 17:10 17:10 17:10 WBC 10.8 H RBC 3.83 Hgb 11.5 L Hct 36.0 MCV 94 MCH 30.1 MCHC 32.0 RDW 16.1 H Plt Count 221 Seg Neutrophils % 83.0 H VBG pH 7.12 L* VBG pCO2 33.3 L VBG HCO3 10.5 L VBG Base Excess -17.8 Sodium 154.1 H Potassium 7.0 H* Chloride 122 H Carbon Dioxide 9 L* Anion Gap 23 H BUN 219 H Creatinine 16.11 H Est GFR ( Amer) 3 L Glucose 103 Lactic Acid Calcium 10.2 Total Bilirubin 1.1 AST 24 Alkaline Phosphatase 153 H Total Protein 7.3 Albumin 3.8 TSH Urine Color Urine Appearance Urine pH Ur Specific [place] Urine Protein Urine Glucose (UA) Urine Ketones Urine Blood Urine RBC (Auto) 02/05/20 02/05/20 02/05/20 17:10 19:43 21:23 WBC RBC Hgb Hct MCV MCH MCHC RDW Plt Count Seg Neutrophils % VBG pH VBG pCO2 VBG HCO3 VBG Base Excess Sodium Potassium Chloride Carbon Dioxide Anion Gap BUN Creatinine Est GFR ( Amer) Glucose Lactic Acid 1.0 1.4 Calcium Total Bilirubin AST Alkaline Phosphatase Total Protein Albumin TSH Urine Color YELLOW Urine Appearance TURBID Urine pH 5.0 Ur Specific [place] 1.018 Urine Protein 100 H Urine Glucose (UA) NEGATIVE Urine Ketones TRACE H Urine Blood SMALL H Urine RBC (Auto) 33 02/05/20 02/05/20 02/06/20 22:25 22:25 00:30 WBC RBC Hgb Hct MCV MCH MCHC RDW Plt Count Seg Neutrophils % VBG pH VBG pCO2 VBG HCO3 VBG Base Excess Sodium 148.0 H Potassium 5.1 H D Chloride 127 H Carbon Dioxide 9 L* Anion Gap 12 BUN 185 H D Creatinine 12.51 H Est GFR ( Amer) 4 L Glucose 275 H Lactic Acid 1.4 Calcium 8.0 L Total Bilirubin AST Alkaline Phosphatase Total Protein Albumin TSH 1.33 Urine Color Urine Appearance Urine pH Ur Specific [place] Urine Protein Urine Glucose (UA) Urine Ketones Urine Blood Urine RBC (Auto) 02/05/20 17:10 Troponin I 0.065 Impressions: Chest X-Ray 02/05/20 18:02 IMPRESSION: NO ACUTE RADIOGRAPHIC FINDING IN THE CHEST. 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 Right maxillary sinus disease. No acute finding. EVIDENCE OF ACUTE STROKE: NO. Renal Ultrasound 02/05/20 20:16 IMPRESSION: No definite acute findings. All labs, radiographs, diagnostic studies and EKGs were personally reviewed: Yes In addition, reports of radiographic and diagnostic studies were read: Yes Critical Time Critical Time (minutes): 62 -: The care of a critically ill patient is dynamic. This note represents a static moment in the admission process. Orders and treatments may be given sim ultaneously and urgently, and time is not solar sales representative and assessor of the treatment process. This patient requires Critical Care secondary to life threatening organ or limb dysfunction. Without Critical Care services, the patient is at risk for increased mortality and morbidity.
[2020-02-06] MEDS ORDERED: DEXTROSE 40% GEL 15 GM TUBE PO PRN ×2 (04:54)
[2020-02-06] MEDS ORDERED: DEXTROSE 50%-WATER 25 GM/50 ML DISP.SYRIN IV PRN ×2 (04:54)
[2020-02-06] MEDS ORDERED: GLUCAGON,HUMAN RECOMB 1 MG INJ SUBCUT PRN (04:54)
[2020-02-06] MEDS: HEPARIN SOD (PORCINE) 5,000 UNIT/ML 1 ML VIAL SUBCUT SCH ×3 (05:44→22:00)
[2020-02-06] MEDS: RINGERS SOLUTION,LACTATED 1,000 ML IV PRN ×3 (05:44→22:35)
[2020-02-06 07:14] LABS: ABSOLUTE BASOPHILS # (AUTO) 0.1 10^3/uL (0.0-0.2); ABSOLUTE EOSINOPHILS # (AUTO) 0.1 10^3/uL (0.0-0.6); ABSOLUTE LYMPHOCYTES (AUTO) 1.3 10^3/uL (0.5-4.7); ABSOLUTE MONOCYTES (AUTO) 0.8 10^3/uL (0.1-1.4); ABSOLUTE NEUT (AUTO) 7.2 10^3/uL (1.7-8.2); BASOPHILS % (AUTO) 0.7 % (0-2); EOSINOPHILS % (AUTO) 1.5 % (0-6); HEMATOCRIT 30.6 % (36.0-47.0); HEMOGLOBIN 9.6 g/dL (12.0-15.5); LYMPHOCYTES % (AUTO) 13.3 % (13-45); MEAN CORPUSCULAR HEMOGLOBIN 30.5 pg (27.0-33.4); MEAN CORPUSCULAR HGB CONC 31.5 g/dL (32.0-36.0); MEAN CORPUSCULAR VOLUME 97 fl (80-97); MONOCYTES % (AUTO) 8.4 % (3-13); PLATELET COUNT 167 10^3/uL (150-450); RED BLOOD COUNT 3.16 10^6/uL (3.72-5.28); RED CELL DISTRIBUTION WIDTH 15.9 % (11.5-14.0); SEGMENTED NEUTROPHILS % (AUTO) 76.1 % (42-78); TOTAL CELLS COUNTED % (AUTO) 100 %; WHITE BLOOD COUNT 9.5 10^3/uL (4.0-10.5)
[2020-02-06 10:36] LABS: ANION GAP 17 (5-19); CALCIUM 8.9 mg/dL (8.4-10.2); CHLORIDE 131 mmol/L (98-107); GLUCOSE 76 mg/dL (75-110); POTASSIUM 5.9 mmol/L (3.6-5.0)
[2020-02-06 10:45] LABS: BLOOD UREA NITROGEN 179 mg/dL (7-20)
[2020-02-06 10:46] LABS: CARBON DIOXIDE 6 mmol/L (22-30)
[2020-02-06 21:23] LABS: CALCIUM 9.4 mg/dL (8.4-10.2); CHLORIDE 130 mmol/L (98-107); GLUCOSE 84 mg/dL (75-110); POTASSIUM 5.4 mmol/L (3.6-5.0)
[2020-02-06 21:37] LABS: ANION GAP 13 (5-19); BLOOD UREA NITROGEN 166 mg/dL (7-20); CARBON DIOXIDE 11 mmol/L (22-30)
[2020-02-07 05:03] LABS: ANION GAP 13 (5-19); CALCIUM 9.8 mg/dL (8.4-10.2); CARBON DIOXIDE 11 mmol/L (22-30); CHLORIDE 134 mmol/L (98-107); GLUCOSE 80 mg/dL (75-110); POTASSIUM 5.3 mmol/L (3.6-5.0)
[2020-02-07 05:13] LABS: BLOOD UREA NITROGEN 157 mg/dL (7-20)
[2020-02-07 05:14] LABS: PHOSPHORUS 5.9 mg/dL (2.5-4.5)
[2020-02-07] MEDS: HEPARIN SOD (PORCINE) 5,000 UNIT/ML 1 ML VIAL SUBCUT SCH ×3 (05:36→21:05)
[2020-02-07] MEDS: RINGERS SOLUTION,LACTATED 1,000 ML IV PRN (06:41)
--- NOTE | 2020-02-07 08:22 | RADIOLOGY REPORT (SQ) ---
EXAM DESCRIPTION: CHEST SINGLE VIEW IMAGES COMPLETED DATE/TIME: 02/07/2020 6:00 am REASON FOR STUDY: High Volume Fluid Resuscitation. COMPARISON: 02/05/2020. EXAM PARAMETERS: NUMBER OF VIEWS: One view. TECHNIQUE: Single frontal radiographic view of the chest acquired. RADIATION DOSE: NA LIMITATIONS: None. FINDINGS: LUNGS AND PLEURA: No opacities, masses or pneumothorax. No pleural effusion. MEDIASTINUM AND HILAR STRUCTURES: No masses. Contour normal. HEART AND VASCULAR STRUCTURES: Mild cardiomegaly and vascular congestion. BONES: No acute findings. HARDWARE: None in the chest. OTHER: No other significant finding. IMPRESSION: MILD CARDIOMEGALY AND VASCULAR CONGESTION. NO OTHER SIGNIFICANT FINDINGS. TECHNICAL DOCUMENTATION: JOB ID: [id number] [employer]- All Rights Reserved Reading location - IP/workstation name: [email or web address]
[2020-02-07 08:41] LABS: ABSOLUTE BASOPHILS # (AUTO) 0.1 10^3/uL (0.0-0.2); ABSOLUTE EOSINOPHILS # (AUTO) 0.1 10^3/uL (0.0-0.6); ABSOLUTE MONOCYTES (AUTO) 0.6 10^3/uL (0.1-1.4); ABSOLUTE NEUT (AUTO) 4.7 10^3/uL (1.7-8.2); BASOPHILS % (AUTO) 0.9 % (0-2); EOSINOPHILS % (AUTO) 2.2 % (0-6); HEMOGLOBIN 9.5 g/dL (12.0-15.5); LYMPHOCYTES % (AUTO) 15.5 % (13-45); MEAN CORPUSCULAR HEMOGLOBIN 30.7 pg (27.0-33.4); MEAN CORPUSCULAR HGB CONC 32.8 g/dL (32.0-36.0); MEAN CORPUSCULAR VOLUME 94 fl (80-97); MONOCYTES % (AUTO) 9.3 % (3-13); PLATELET COUNT 157 10^3/uL (150-450); RED CELL DISTRIBUTION WIDTH 15.9 % (11.5-14.0); SEGMENTED NEUTROPHILS % (AUTO) 72.1 % (42-78); TOTAL CELLS COUNTED % (AUTO) 100 %; WHITE BLOOD COUNT 6.5 10^3/uL (4.0-10.5)
[2020-02-07] MEDS ORDERED: NORMAL SALINE INJ/PF 0.9% 10 ML SDV IV PRN (10:38)
[2020-02-07 10:51] LABS: CALCIUM 9.4 mg/dL (8.4-10.2); CHLORIDE 134 mmol/L (98-107); GLUCOSE 79 mg/dL (75-110)
[2020-02-07 11:01] LABS: BLOOD UREA NITROGEN 150 mg/dL (7-20)
[2020-02-07 11:08] LABS: ANION GAP 14 (5-19)
[2020-02-07 11:16] LABS: CARBON DIOXIDE 9 mmol/L (22-30)
[2020-02-07 12:12] LABS: ARTERIAL BLOOD BASE EXCESS -14.7 mmol/L; ARTERIAL BLOOD H2CO3 0.66 mmol/L (1.05-1.35); ARTERIAL BLOOD HCO3 10.2 mmol/L (20-24); ARTERIAL BLOOD O2 SATURATION 97.4 % (94-98); ARTERIAL BLOOD PCO2 21.8 mmHg (35-45); ARTERIAL BLOOD PH 7.29 (7.35-7.45); ARTERIAL BLOOD TOTAL CO2 10.9 mmol/L (21-25)
[2020-02-07 12:13] LABS: ARTERIAL BLOOD FIO2 ROOM AIR
[2020-02-07] MEDS: NORMAL SALINE INJ/PF 0.9% 10 ML SDV IV SCH ×2 (12:16→21:06)
[2020-02-07] MEDS: CEFTRIAXONE 1 GM/D5W RTU 1 GM/50 ML RTUPB IV SCH (12:37)
[2020-02-07] MEDS ORDERED: DEXTROSE 5%-WATER 1000 ML 1,000 ML with SODIUM BICARBONATE 150 MEQ IV PRN ×2 (14:00)
--- NOTE | 2020-02-07 16:27 | PDOC CRITICAL CARE PROG REPORT ---
General Date:: 02/07/20 ICU Day:: 2 Hospital Day:: 3 Resuscitation Status: Full Code Events in the past 12 to 24 Hours:: This 64-year-old female presented to [facility] emergency department on 02/05/2020 from a [facility] with mental status changes, hypotension and severe metabolic derangement. Initially, her potassium was 7.0. BUN/creatinine was 219/16. She received multiple fluid boluses in the emergency department in addition to insulin/glucose. Her hypotension improved with increase fluids. She did not require vasopressors for blood pressure support. 02/06: Normotensive. Potassium 5.3. BUN/creatinine 157/7.6. On LR at 120 mL/h. Renal ultrasound showed no definite acute findings. Blood cultures ( 02/04, 1 of 2) isolated Staphylococcus species and gram-positive cocci in clusters. Afebrile. Review of systems relevant to events:: Neurologic: Altered mental status Renal: Acute renal failure, hyperkalemia Reason for ICU Addmission:: Severe dehydration with metabolic derangement. - Medications: Medications reviewed and adjusted accordingly: Yes Physical Exam Vital Signs: Temp Pulse Resp BP Pulse Ox 98.6 F 88 15 114/66 100 02/07/20 08:31 02/06/20 20:00 02/07/20 08:31 02/07/20 08:31 02/07/20 08:31 Intake & Output 02/06/20 02/07/20 02/08/20 06:59 06:59 06:59 Intake Total 3050 2860 Output Total 235 2295 275 Balance 2815 565 -275 Weight 68.5 kg 71.8 kg Weight/Height Weight 71.8 kg Height 1.52 m General appearance: PRESENT: no acute distress, well-developed, well-nourished Eye exam: PRESENT: conjunctiva pink, EOMI, PERRLA. ABSENT: scleral icterus Ear exam: PRESENT: normal external ear exam Neck exam: ABSENT: carotid bruit, JVD, lymphadenopathy, thyromegaly Respiratory exam: PRESENT: clear to auscultation carl. ABSENT: rales, rhonchi, wheezes Cardiovascular exam: PRESENT: RRR. ABSENT: diastolic murmur, rubs, systolic murmur Pulses: PRESENT: normal dorsalis pedis pul GI/Abdominal exam: PRESENT: normal bowel sounds, soft. ABSENT: distended, guarding, mass, organolmegaly, rebound, tenderness Gentrourinary exam: PRESENT: indwelling catheter Extremities exam: PRESENT: full ROM. ABSENT: calf tenderness, clubbing, pedal edema Neurological exam: PRESENT: alert, awake, CN II-XII grossly intact, motor sensory deficit - Right hemiparesis. ABSENT: reflexes normal - Right biceps 3+. Right Babinski Psychiatric exam: ABSENT: agitated, anxious Skin exam: PRESENT: other - Stage II right buttock pressure sore Laboratory/Radiographs Laboratory Results: 02/07/20 07:45 02/07/20 04:24 02/06/20 02/06/20 02/07/20 06:40 20:52 04:24 WBC RBC Hgb Hct MCV MCH MCHC RDW Plt Count Seg Neutrophils % Sodium 153.9 H 154.4 H 157.9 H Potassium 5.9 H 5.4 H 5.3 H Chloride 131 H 130 H 134 H Carbon Dioxide 6 L* 11 L 11 L Anion Gap 17 13 13 BUN 179 H 166 H 157 H Creatinine 11.60 H 8.55 H 7.58 H Est GFR ( Amer) 4 L 6 L 7 L Glucose 76 84 80 Calcium 8.9 9.4 9.8 Phosphorus Magnesium Cancelled 02/07/20 02/07/20 02/07/20 04:24 04:24 07:45 WBC Cancelled 6.5 RBC Cancelled 3.10 L Hgb Cancelled 9.5 L Hct Cancelled 29.0 L MCV Cancelled 94 MCH Cancelled 30.7 MCHC Cancelled 32.8 RDW Cancelled 15.9 H Plt Count Cancelled 157 Seg Neutrophils % Cancelled 72.1 Sodium Potassium Chloride Carbon Dioxide Anion Gap BUN Creatinine Est GFR ( Amer) Glucose Calcium Phosphorus 5.9 H Magnesium 2.5 H 02/05/20 17:10 Blood Blood Culture (PCR) - Final Staphylococcus Species 02/05/20 02/06/20 02/07/20 17:10 06:40 04:24 Troponin I 0.065 NT-Pro-B Natriuret Pep 2900 H 7740 H Impressions: Head CT 02/05/20 18:05 IMPRESSION: 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 Right maxillary sinus disease. No acute finding. EVIDENCE OF ACUTE STROKE: NO. Renal Ultrasound 02/05/20 20:16 IMPRESSION: No definite acute findings. Chest X-Ray 02/07/20 06:00 IMPRESSION: MILD CARDIOMEGALY AND VASCULAR CONGESTION. NO OTHER SIGNIFICANT FINDINGS. All labs, radiographs, diagnostic studies and EKGs were personally reviewed: Yes In addition, reports of radiographic and diagnostic studies were read: Yes Assessment and Plan - Diagnosis (1) Acute kidney injury Is this a current diagnosis for this admission?: Yes Plan: * Nonoliguric. * Monitor urine output. * Clinically, this patient is suspicious for developing a post ATN diuresis. (2) Metabolic acidosis Is this a current diagnosis for this admission?: Yes Plan: * This patient has a combined non-anion gap and anion gap metabolic acidosis, likely owing to uremia in addition to high volume intravenous fluid resuscitation. * She is demonstrating incomplete/insufficient respiratory compensation, demonstrated by a room air ABG pH 7.29/22/106. * Will add bicarbonate infusion in an attempt to assist with her incomplete respiratory compensation. Of note, the patient's PCO2 was 22; therefore, this is not digestive of any primary respiratory/ventilatory impairment. (3) Sepsis Qualifiers: Sepsis type: sepsis due to unspecified organism Sepsis acute organ dysfunction status: with acute organ dysfunction Severe sepsis acute organ dysfunction type: acute renal failure Acute renal failure type: unspecified Severe sepsis shock status: without septic shock Qualified Code(s): A41.9 - Sepsis, unspecified organism; R65.20 - Severe sepsis without septic shock; N17.9 - Acute kidney failure, unspecified Is this a current diagnosis for this admission?: Yes (4) UTI (urinary tract infection) Qualifiers: Urinary tract infection type: acute cystitis Hematuria presence: without he maturia Qualified Code(s): N30.00 - Acute cystitis without hematuria Is this a current diagnosis for this admission?: Yes Plan: * UA: greater than 180 WBC, positive leukocyte esterase, negative nitrite * Start Rocephin. * Follow-up urine cultures. (5) Hyperkalemia Is this a current diagnosis for this admission?: Yes (6) Hypernatremia Is this a current diagnosis for this admission?: Yes (7) Hypotension Qualifiers: Hypotension type: unspecified hypotension type Qualified Code(s): I95.9 - Hypotension, unspecified Is this a current diagnosis for this admission?: Yes Plan: Resolved with IV fluid administration. No vasopressor need. 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 Plan Summary: Okay to transfer to telemetry from pulmonary/critical care standpoint. Critical Time Critical Time (minutes): 60 Level of Care: ICU -: 1. The care of a critical patient is a dynamic process. This note is a sales utility representative synopsis but static in nature. The timeframe for treatments given in order is not necessarily the actual time these treatments may have been done. 2. This patient requires critical care secondary to ongoing requirements for therapy not offered or safe outside the critical care environment. Transfer to a lower level of care will result in altered life or limb morbidity and mortality. 3. Multidisciplinary rounds completed. 4. ABCDE bundle addressed.
[2020-02-07 16:40] LABS: ARTERIAL BLOOD BASE EXCESS -12.6 mmol/L; ARTERIAL BLOOD FIO2 ROOM AIR; ARTERIAL BLOOD H2CO3 0.73 mmol/L (1.05-1.35); ARTERIAL BLOOD O2 SATURATION 97.5 % (94-98); ARTERIAL BLOOD PCO2 24.2 mmHg (35-45); ARTERIAL BLOOD PH 7.31 (7.35-7.45); ARTERIAL BLOOD PO2 104.2 mmHg (80-100); ARTERIAL BLOOD TOTAL CO2 12.7 mmol/L (21-25)
[2020-02-07 17:36] LABS: ANION GAP 13 (5-19); CALCIUM 9.4 mg/dL (8.4-10.2); CARBON DIOXIDE 12 mmol/L (22-30); CHLORIDE 132 mmol/L (98-107); GLUCOSE 103 mg/dL (75-110); POTASSIUM 4.8 mmol/L (3.6-5.0)
[2020-02-07 17:44] LABS: BLOOD UREA NITROGEN 140 mg/dL (7-20)
[2020-02-08 05:21] LABS: ANION GAP 13 (5-19); CALCIUM 9.5 mg/dL (8.4-10.2); CARBON DIOXIDE 19 mmol/L (22-30); CHLORIDE 130 mmol/L (98-107); GLUCOSE 122 mg/dL (75-110); POTASSIUM 4.5 mmol/L (3.6-5.0)
[2020-02-08 05:34] LABS: BLOOD UREA NITROGEN 120 mg/dL (7-20)
[2020-02-08] MEDS: HEPARIN SOD (PORCINE) 5,000 UNIT/ML 1 ML VIAL SUBCUT SCH ×3 (06:27→22:30)
[2020-02-08 06:30] LABS: C DIFFICILE GDH NEGATIVE (NEGATIVE)
[2020-02-08 07:35] LABS: ARTERIAL BLOOD BASE EXCESS -5.6 mmol/L; ARTERIAL BLOOD FIO2 ROOM AIR; ARTERIAL BLOOD H2CO3 0.85 mmol/L (1.05-1.35); ARTERIAL BLOOD HCO3 17.9 mmol/L (20-24); ARTERIAL BLOOD O2 SATURATION 93.9 % (94-98); ARTERIAL BLOOD PCO2 28.2 mmHg (35-45); ARTERIAL BLOOD PH 7.42 (7.35-7.45); ARTERIAL BLOOD PO2 66.4 mmHg (80-100); ARTERIAL BLOOD TOTAL CO2 18.7 mmol/L (21-25)
[2020-02-08] MEDS: RINGERS SOLUTION,LACTATED 1,000 ML IV PRN ×2 (08:18→18:42)
[2020-02-08 10:14] LABS: ANION GAP 9 (5-19); BLOOD UREA NITROGEN 117 mg/dL (7-20); CALCIUM 9.1 mg/dL (8.4-10.2); CARBON DIOXIDE 18 mmol/L (22-30); CHLORIDE 133 mmol/L (98-107); GLUCOSE 115 mg/dL (75-110)
[2020-02-08] MEDS: NORMAL SALINE INJ/PF 0.9% 10 ML SDV IV SCH ×2 (10:20→22:31)
[2020-02-08] MEDS: CEFTRIAXONE 1 GM/D5W RTU 1 GM/50 ML RTUPB IV SCH (10:20)
[2020-02-08] MEDS ORDERED: FUROSEMIDE INJ/PF 40 MG/4 ML SDV IV ONE (10:48)
--- NOTE | 2020-02-08 12:52 | PDOC CRITICAL CARE PROG REPORT ---
General Date:: 02/08/20 ICU Day:: 3 Hospital Day:: 4 Resuscitation Status: Full Code Events in the past 12 to 24 Hours:: This 64-year-old [facility] from a skilled nursing with mental status changes, hypotension and severe metabolic derangement. Initially, her potassium was 7.0. BUN/creatinine was 219/16. She received multiple fluid boluses in the emergency department in addition to insulin/glucose. Her hypotension improved with increase fluids. She did not require vasopressors for blood pressure support. 02/06: Normotensive. Potassium 5.3. BUN/creatinine 157/7.6. On LR at 120 mL/h. Renal ultrasound showed no definite acute findings. Blood cultures ( 02/04, 1 of 2) isolated Staphylococcus species and gram-positive cocci in clusters. Afebrile. 02/07: Normotensive. Potassium 4.0. BUN/creatinine 117/3.5. On LR at 60 mL/h. BNP 13,200. ABG this a.m.: 7.. Urine isolated E. coli (pansensitive) and another gram-negative rogelio is growing. On empiric Zosyn/vancomycin. Afebrile. Review of systems relevant to events:: Neurologic: Altered mental status Renal: Acute renal failure, hyperkalemia Reason for ICU Addmission:: Severe dehydration with metabolic derangement. - Medications: Medications reviewed and adjusted accordingly: Yes Physical Exam Vital Signs: Temp Pulse Resp BP Pulse Ox 99.5 F 88 16 138/116 H 100 02/08/20 10:17 02/07/20 20:00 02/08/20 10:17 02/08/20 10:17 02/08/20 10:17 Intake & Output 02/07/20 02/08/20 02/09/20 06:59 06:59 06:59 Intake Total 2860 1972 0 Output Total 2295 6335 425 Balance 565 -823 -425 Weight 71.8 kg 71 kg Weight/Height Weight 71 kg Height 1.52 m General appearance: PRESENT: no acute distress, well-developed, well-nourished Head exam: PRESENT: atraumatic, normocephalic Respiratory exam: PRESENT: clear to auscultation carl. ABSENT: rales, rhonchi, wheezes Cardiovascular exam: PRESENT: RRR. ABSENT: diastolic murmur, rubs, systolic murmur Pulses: PRESENT: normal dorsalis pedis pul GI/Abdominal exam: PRESENT: normal bowel sounds, soft. ABSENT: distended, guarding, mass, organolmegaly, rebound, tenderness Neurological exam: PRESENT: alert, awake, reflexes normal - 3+ right patellar tendon reflex. Right Babinski, CN II-XII grossly intact, motor sensory deficit - Right hemiparesis, aphasic - May have limited comprehension. Tends to answer yes for everything. Laboratory/Radiographs Laboratory Results: 02/07/20 07:45 02/08/20 09:36 02/07/20 02/07/20 02/07/20 10:11 11:30 16:10 Carbonic Acid 0.66 L 0.73 L HCO3/H2CO3 Ratio 15:1 16:1 ABG pH 7.29 L 7.31 L ABG pCO2 21.8 L 24.2 L ABG pO2 106.0 H 104.2 H ABG HCO3 10.2 L 12.0 L ABG O2 Saturation 97.4 97.5 ABG Base Excess -14.7 -12.6 FiO2 ROOM AIR ROOM AIR Sodium 157.2 H Potassium 5.0 Chloride 134 H Carbon Dioxide 9 L* Anion Gap 14 BUN 150 H Creatinine 6.09 H Est GFR ( Amer) 8 L Glucose 79 Calcium 9.4 Magnesium 02/07/20 02/08/20 02/08/20 17:07 04:35 07:25 Carbonic Acid 0.85 L HCO3/H2CO3 Ratio 21:1 ABG pH 7.42 ABG pCO2 28.2 L ABG pO2 66.4 L ABG HCO3 17.9 L ABG O2 Saturation 93.9 L ABG Base Excess -5.6 FiO2 ROOM AIR Sodium 156.8 H 162.4 H Potassium 4.8 4.5 Chloride 132 H 130 H Carbon Dioxide 12 L 19 L Anion Gap 13 13 BUN 140 H 120 H D Creatinine 5.13 H 4.04 H Est GFR ( Amer) 10 L 13 L Glucose 103 122 H Calcium 9.4 9.5 Magnesium 2.0 02/08/20 09:36 Carbonic Acid HCO3/H2CO3 Ratio ABG pH ABG pCO2 ABG pO2 ABG HCO3 ABG O2 Saturation ABG Base Excess FiO2 Sodium 159.8 H Potassium 4.0 Chloride 133 H Carbon Dioxide 18 L Anion Gap 9 BUN 117 H Creatinine 3.47 H Est GFR ( Amer) 16 L Glucose 115 H Calcium 9.1 Magnesium 02/05/20 17:10 Blood Blood Culture (PCR) - Final Staphylococcus Species 02/05/20 02/06/20 02/07/20 17:10 06:40 04:24 Troponin I 0.065 NT-Pro-B Natriuret Pep 2900 H 7740 H 02/08/20 04:35 Troponin I NT-Pro-B Natriuret Pep 03272 H Impressions: Head CT 02/05/20 18:05 IMPRESSION: 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 Right maxillary sinus disease. No acute finding. EVIDENCE OF ACUTE STROKE: NO. Renal Ultrasound 02/05/20 20:16 IMPRESSION: No definite acute findings. Chest X-Ray 02/07/20 06:00 IMPRESSION: MILD CARDIOMEGALY AND VASCULAR CONGESTION. NO OTHER SIGNIFICANT FINDINGS. All labs, radiographs, diagnostic studies and EKGs were personally reviewed: Yes In addition, reports of radiographic and diagnostic studies were read: Yes Assessment and Plan - Diagnosis (1) Acute kidney injury Is this a current diagnosis for this admission?: Yes Plan: * Nonoliguric, improving. * Monitor urine output. (2) Metabolic acidosis Is this a current diagnosis for this admission?: Yes Plan: * This patient has a combined non-anion gap and anion gap metabolic acidosis, likely owing to uremia in addition to high volume intravenous fluid resus citation. * Diurese today. (3) Sepsis Qualifiers: Sepsis type: sepsis due to unspecified organism Sepsis acute organ dysfunction status: with acute organ dysfunction Severe sepsis acute organ dysfunction type: acute renal failure Acute renal failure type: unspecified Severe sepsis shock status: without septic shock Qualified Code(s): A41.9 - Sepsis, unspecified organism; R65.20 - Severe sepsis without septic shock; N17.9 - Acute kidney failure, unspecified Is this a current diagnosis for this admission?: Yes (4) UTI (urinary tract infection) Qualifiers: Urinary tract infection type: acute cystitis Hematuria presence: without hematuria Qualified Code(s): N30.00 - Acute cystitis without hematuria Is this a current diagnosis for this admission?: Yes (5) Hypernatremia Is this a current diagnosis for this admission?: Yes Plan: * LR at 60 mL/h. (6) Hypotension Qualifiers: Hypotension type: unspecified hypotension type Qualified Code(s): I95.9 - Hypotension, unspecified Is this a current diagnosis for this admission?: Yes Plan: Resolved with IV fluid administration. No vasopressor need. (7) Stage II pressure sore Qualifiers: Pressure injury location: buttock Laterality: right Qualified Code(s): L89.312 - Pressure ulcer of right buttock, stage 2 Is this a current diagnosis for this admission?: Yes (8) Hemiparesis Qualifiers: Hemiparesis etiology: late effect of cerebrovascular disease Cerebrovascular disease type: cerebral infarction Hemiparesis laterality: unspecified Qualified Code(s): I69.359 - Hemiplegia and hemiparesis following cerebral infarction affecting unspecified side Is this a current diagnosis for this admission?: No (9) Hyperkalemia Is this a current diagnosis for this admission?: Yes Plan: Resolved Plan Summary: Okay to transfer to telemetry from pulmonary/critical care standpoint. Critical Time Critical Time (minutes): 45 Level of Care: ICU -: 1. The care of a critical patient is a dynamic process. This note is a strategic partnership representative synopsis but static in nature. The timeframe for treatments given in order is not necessarily the actual time these treatments may have been done. 2. This patient requires critical care secondary to ongoing requirements for therapy not offered or safe outside the critical care environment. Transfer to a lower level of care will result in altered life or limb morbidity and mortality. 3. Multidisciplinary rounds completed. 4. ABCDE bundle addressed.
[2020-02-08 15:52] LABS: ANION GAP 13 (5-19); BLOOD UREA NITROGEN 110 mg/dL (7-20); CALCIUM 9.3 mg/dL (8.4-10.2); CARBON DIOXIDE 16 mmol/L (22-30); CHLORIDE 131 mmol/L (98-107); GLUCOSE 124 mg/dL (75-110); POTASSIUM 4.1 mmol/L (3.6-5.0)
[2020-02-08] MEDS ORDERED: DEXTROSE 50%-WATER 25 GM/50 ML DISP.SYRIN IV PRN ×2 (16:19)
[2020-02-08] MEDS ORDERED: GLUCAGON,HUMAN RECOMB 1 MG INJ IM PRN (16:19)
[2020-02-08] MEDS ORDERED: DEXTROSE 40% GEL 15 GM TUBE PO PRN ×2 (16:19)
--- NOTE | 2020-02-08 17:02 | PDOC PROGRESS REPORT ---
Subjective Date:: 02/08/20 Subjective:: 64-year-old female presented to [facility] emergency dep artment on 02/05/2020 from a care home with mental status changes, hypotension and severe metabolic derangement. Initially, her potassium was 7.0. BUN/creatinine was 219/16. She received multiple fluid boluses in the emergency department in addition to insulin/glucose. Her hypotension improved with increase fluids. She did not require vasopressors for blood pressure support. 02/06: Normotensive. Potassium 5.3. BUN/creatinine 157/7.6. On LR at 120 mL/h. Renal ultrasound showed no definite acute findings. Blood cultures (02/04, 1 of 2) isolated Staphylococcus species and gram-positive cocci in clusters. Afebrile. 02/07: Normotensive. Potassium 4.0. BUN/creatinine 117/3.5. On LR at 60 mL/h. BNP 13,200. ABG this a.m.: 7.. Urine isolated E. coli (pansensitive) and another gram-negative rogelio is growing. On empiric Zosyn/vancomycin. Afebrile. 02/08/[id number]-cpcr-old female admitted from care home she is a full code as per the care home records, admitted for acute renal failure and severe dehydration. At the time of admission creatinine is more than 16 and BUN is more than 210. Today's creatinine is 3.11 and BUN around 117. Patient has right-sided weakness, she is still n.p.o. Receiving Ringer lactate at 60 cc/h at this time. Responding to verbal commands by nodding her head. Does not communicate much. Speech consult was requested for tomorrow labs are requested for tomorrow. Overall prognosis poor condition is critical. Patient also has a decubitus ulceration. Receiving IV Rocephin for a UTI. Reason For Visit: HYPOTENSION,SEVERE METABOLIC DERANGEMENT Physical Exam Vital Signs: Temp Pulse Resp BP Pulse Ox 98.6 F 98 18 140/96 H 100 02/08/20 16:17 02/08/20 08:00 02/08/20 16:00 02/08/20 16:17 02/08/20 16:17 Intake & Output 02/07/20 02/08/20 02/09/20 06:59 06:59 06:59 Intake Total 2860 1972 50 Output Total 2295 2795 1555 Balance 594 -915 -5549 Weight 71.8 kg 71 kg General appearance: PRESENT: no acute distress, cooperative, well-developed Head exam: PRESENT: atraumatic Eye exam: PRESENT: PERRLA Ear exam: PRESENT: normal external ear exam Teeth exam: PRESENT: poor dentation Neck exam: ABSENT: carotid bruit, JVD, lymphadenopathy, thyromegaly Respiratory exam: PRESENT: decreased breath sounds Cardiovascular exam: PRESENT: RRR. ABSENT: diastolic murmur, rubs, systolic murmur GI/Abdominal exam: PRESENT: normal bowel sounds, soft. ABSENT: distended, guarding, mass, organolmegaly, rebound, tenderness Rectal exam: PRESENT: deferred Neurological exam: PRESENT: alert, awake, other - Patient has right-sided weakness, right-sided hemiparesis, aphasic. Psychiatric exam: PRESENT: appropriate affect, normal mood. ABSENT: homicidal ideation, suicidal ideation Results Laboratory Results: 02/07/20 07:45 02/08/20 15:21 02/07/20 02/08/20 02/08/20 17:07 04:35 07:25 Carbonic Acid 0.85 L HCO3/H2CO3 Ratio 21:1 ABG pH 7.42 ABG pCO2 28.2 L ABG pO2 66.4 L ABG HCO3 17.9 L ABG O2 Saturation 93.9 L ABG Base Excess -5.6 FiO2 ROOM AIR Sodium 156.8 H 162.4 H Potassium 4.8 4.5 Chloride 132 H 130 H Carbon Dioxide 12 L 19 L Anion Gap 13 13 BUN 140 H 120 H D Creatinine 5.13 H 4.04 H Est GFR ( Amer) 10 L 13 L Glucose 103 122 H Calcium 9.4 9.5 Magnesium 2.0 02/08/20 02/08/20 09:36 15:21 Carbonic Acid HCO3/H2CO3 Ratio ABG pH ABG pCO2 ABG pO2 ABG HCO3 ABG O2 Saturation ABG Base Excess FiO2 Sodium 159.8 H 160.0 H Potassium 4.0 4.1 Chloride 133 H 131 H Carbon Dioxide 18 L 16 L Anion Gap 9 13 BUN 117 H 110 H Creatinine 3.47 H 3.11 H Est GFR ( Amer) 16 L 18 L Glucose 115 H 124 H Calcium 9.1 9.3 Magnesium 02/05/20 02/06/20 02/07/20 17:10 06:40 04:24 Troponin I 0.065 NT-Pro-B Natriuret Pep 2900 H 7740 H 02/08/20 04:35 Troponin I NT-Pro-B Natriuret Pep 74720 H Impressions: Head CT 02/05/20 18:05 IMPRESSION: 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 Right maxillary sinus disease. No acute finding. EVIDENCE OF ACUTE STROKE: NO. Renal Ultrasound 02/05/20 20:16 IMPRESSION: No definite acute findings. Chest X-Ray 02/07/20 06:00 IMPRESSION: MILD CARDIOMEGALY AND VASCULAR CONGESTION. NO OTHER SIGNIFICANT FINDINGS. Assessment and Plan - Diagnosis (1) Acute kidney injury Is this a current diagnosis for this admission?: Yes Plan: * Nonoliguric, improving. * Monitor urine output. 02/08/2020-patient admitted with nonoliguric kidney failure. Creatinine is proving on daily basis. BUN is also improving. Plan is to closely monitor the labs on daily basis. Presently on Ringer lactate 60 cc/h. Patient is n.p.o. and to request for speech consult tomorrow. (2) Metabolic acidosis Is this a current diagnosis for this admission?: Yes Plan: * This patient has a combined non-anion gap and anion gap metabolic acidosis, likely owing to uremia in addition to high volume intravenous fluid resuscit ation. * Diurese today. * * * 02/08/2020-patient admitted with non-anion gap, gap metabolic acidosis. Resolving. Bicarb is 16 today. 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 (4) Hypernatremia Is this a current diagnosis for this admission?: Yes Plan: * LR at 60 mL/h. * * * 02/08/2020-patient is on LR 60 cc/h. Latest serum sodium is 160. Asymptomatic. Plan is to continue the present management at this time. To repeat the labs tomorrow. (5) Stage II pressure sore Qualifiers: Pressure injury location: buttock Laterality: right Qualified Code(s): L89.312 - Pressure ulcer of right buttock, stage 2 Is this a current diagnosis for this admission?: Yes Plan: Wound care consult (6) UTI (urinary tract infection) Qualifiers: Urinary tract infection type: acute cystitis Hematuria presence: without hematuria Qualified Code(s): N30.00 - Acute cystitis without hematuria Is this a current diagnosis for this admission?: Yes Plan: * UA: greater than 180 WBC, positive leukocyte esterase, negative nitrite * Start Rocephin. * Follow-up urine cultures. * * * 02/08/2020-urine culture is positive. Presently on IV Rocephin. Urine culture is growing gram-negative rods and E. coli. Blood culture positive for Staphylococcus species. Probably contamination. (7) Hyperkalemia Is this a current diagnosis for this admission?: Yes Plan: Resolved - Time Anticipated Discharge Disposition: [facility] Facility Anticipated Discharge Timeframe: within 72 hours
[2020-02-08 19:48] LABS: ANION GAP 12 (5-19); BLOOD UREA NITROGEN 112 mg/dL (7-20); CALCIUM 9.5 mg/dL (8.4-10.2); CARBON DIOXIDE 18 mmol/L (22-30); CHLORIDE 132 mmol/L (98-107); GLUCOSE 121 mg/dL (75-110); POTASSIUM 4.4 mmol/L (3.6-5.0)
[2020-02-08] MEDS ORDERED: INSULIN REG, HUMAN 100 UNIT/ML 3 ML VIAL (PYX) SUBCUT SCH (22:00)
[2020-02-08 23:05] LABS: ANION GAP 10 (5-19); BLOOD UREA NITROGEN 104 mg/dL (7-20); CALCIUM 9.1 mg/dL (8.4-10.2); CARBON DIOXIDE 21 mmol/L (22-30); CHLORIDE 130 mmol/L (98-107); GLUCOSE 110 mg/dL (75-110); POTASSIUM 3.8 mmol/L (3.6-5.0)
[2020-02-08] MEDS: INSULIN REG, HUMAN 100 UNIT/ML 3 ML VIAL (PYX) SUBCUT SCH (23:58)
[2020-02-09 02:54] LABS: ANION GAP 13 (5-19); BLOOD UREA NITROGEN 103 mg/dL (7-20); CALCIUM 9.6 mg/dL (8.4-10.2); CARBON DIOXIDE 20 mmol/L (22-30); CHLORIDE 132 mmol/L (98-107); GLUCOSE 101 mg/dL (75-110); POTASSIUM 3.9 mmol/L (3.6-5.0)
[2020-02-09] MEDS: HEPARIN SOD (PORCINE) 5,000 UNIT/ML 1 ML VIAL SUBCUT SCH ×3 (06:01→21:47)
[2020-02-09] MEDS: INSULIN REG, HUMAN 100 UNIT/ML 3 ML VIAL (PYX) SUBCUT SCH ×3 (06:02→18:08)
[2020-02-09 06:23] LABS: ABSOLUTE BASOPHILS # (AUTO) 0.1 10^3/uL (0.0-0.2); ABSOLUTE EOSINOPHILS # (AUTO) 0.1 10^3/uL (0.0-0.6); ABSOLUTE LYMPHOCYTES (AUTO) 1.4 10^3/uL (0.5-4.7); ABSOLUTE MONOCYTES (AUTO) 0.7 10^3/uL (0.1-1.4); ABSOLUTE NEUT (AUTO) 4.9 10^3/uL (1.7-8.2); BASOPHILS % (AUTO) 1.1 % (0-2); EOSINOPHILS % (AUTO) 1.5 % (0-6); HEMATOCRIT 30.9 % (36.0-47.0); HEMOGLOBIN 10.1 g/dL (12.0-15.5); LYMPHOCYTES % (AUTO) 19.4 % (13-45); MEAN CORPUSCULAR HEMOGLOBIN 29.9 pg (27.0-33.4); MEAN CORPUSCULAR HGB CONC 32.8 g/dL (32.0-36.0); MEAN CORPUSCULAR VOLUME 91 fl (80-97); MONOCYTES % (AUTO) 10.2 % (3-13); PLATELET COUNT 149 10^3/uL (150-450); RED BLOOD COUNT 3.39 10^6/uL (3.72-5.28); RED CELL DISTRIBUTION WIDTH 15.9 % (11.5-14.0); SEGMENTED NEUTROPHILS % (AUTO) 67.8 % (42-78); TOTAL CELLS COUNTED % (AUTO) 100 %; WHITE BLOOD COUNT 7.3 10^3/uL (4.0-10.5)
[2020-02-09 07:06] LABS: ALKALINE PHOSPHATASE 160 U/L (38-126); ANION GAP 13 (5-19); ASPARTATE AMINO TRANSFERASE 55 U/L (14-36); BILIRUBIN,DIRECT 0.5 mg/dL (0.0-0.4); BILIRUBIN,TOTAL 0.8 mg/dL (0.2-1.3); BLOOD UREA NITROGEN 100 mg/dL (7-20); CALCIUM 9.7 mg/dL (8.4-10.2); CARBON DIOXIDE 19 mmol/L (22-30); CHLORIDE 135 mmol/L (98-107); GLUCOSE 106 mg/dL (75-110)
--- NOTE | 2020-02-09 08:31 | PDOC PROGRESS REPORT ---
Subjective Date:: 02/09/20 Subjective:: 64-year-old female presented to [facility] emergency dep artment on 02/05/2020 from a alf with mental status changes, hypotension and severe metabolic derangement. Initially, her potassium was 7.0. BUN/creatinine was 219/16. She received multiple fluid boluses in the emergency department in addition to insulin/glucose. Her hypotension improved with increase fluids. She did not require vasopressors for blood pressure support. 02/06: Normotensive. Potassium 5.3. BUN/creatinine 157/7.6. On LR at 120 mL/h. Renal ultrasound showed no definite acute findings. Blood cultures (02/04, 1 of 2) isolated Staphylococcus species and gram-positive cocci in clusters. Afebrile. 02/07: Normotensive. Potassium 4.0. BUN/creatinine 117/3.5. On LR at 60 mL/h. BNP 13,200. ABG this a.m.: 7.. Urine isolated E. coli (pansensitive) and another gram-negative rogelio is growing. On empiric Zosyn/vancomycin. Afebrile. 02/08/20200054-13-ylld-old female admitted from alf she is a full code as per the alf records, admitted for acute renal failure and severe dehydration. At the time of admission creatinine is more than 16 and BUN is more than 210. Today's creatinine is 3.11 and BUN around 117. Patient has right-sided weakness, she is still n.p.o. Receiving Ringer lactate at 60 cc/h at this time. Responding to verbal commands by nodding her head. Does not communicate much. Speech consult was requested for tomorrow labs are requested for tomorrow. Overall prognosis poor condition is critical. Patient also has a decubitus ulceration. Receiving IV Rocephin for a UTI. 02/09/20200869-45-gnjb-old female admitted to [facility] for care for acute kidney failure with creatinine of 16 and anion gap and non-anion gap metabolic acidosis. Serum sodium is 166 today. started on D5W at 75 cc/h. To closely monitor the labs every 6 hours. over all prognosis is poor. Reason For Visit: HYPOTENSION,SEVERE METABOLIC DERANGEMENT Physical Exam Vital Signs: Temp Pulse Resp BP Pulse Ox 98.3 F 86 20 117/88 H 96 02/09/20 03:47 02/09/20 03:47 02/08/20 19:33 02/09/20 03:47 02/09/20 03:47 Intake & Output 02/08/20 02/09/20 02/10/20 06:59 06:59 06:59 Intake Total 1972 674 Output Total 7203 6422 Balance -823 -1680 Weight 71 kg 66 kg General appearance: PRESENT: no acute distress, well-developed Head exam: PRESENT: atraumatic Eye exam: PRESENT: PERRLA Ear exam: PRESENT: normal external ear exam Neck exam: ABSENT: carotid bruit, JVD, lymphadenopathy, thyromegaly Respiratory exam: PRESENT: clear to auscultation carl. ABSENT: rales, rhonchi, wheezes Cardiovascular exam: PRESENT: RRR. ABSENT: diastolic murmur, rubs, systolic murmur GI/Abdominal exam: PRESENT: normal bowel sounds, soft. ABSENT: distended, guarding, mass, organolmegaly, rebound, tenderness Rectal exam: PRESENT: deferred Extremities exam: PRESENT: full ROM. ABSENT: calf tenderness, clubbing, pedal edema Neurological exam: PRESENT: alert, awake, motor sensory deficit, other - Patient is aphasic, right-sided weakness present. Results Laboratory Results: 02/09/20 06:03 02/09/20 06:03 02/08/20 02/08/20 02/08/20 09:36 15:21 19:09 WBC RBC Hgb Hct MCV MCH MCHC RDW Plt Count Seg Neutrophils % Sodium 159.8 H 160.0 H 162.0 H Potassium 4.0 4.1 4.4 Chloride 133 H 131 H 132 H Carbon Dioxide 18 L 16 L 18 L Anion Gap 9 13 12 BUN 117 H 110 H 112 H Creatinine 3.47 H 3.11 H 3.02 H Est GFR ( Amer) 16 L 18 L 19 L Glucose 115 H 124 H 121 H Calcium 9.1 9.3 9.5 Magnesium Total Bilirubin AST Alkaline Phosphatase Total Protein Albumin 02/08/20 02/09/20 02/09/20 22:00 01:51 06:03 WBC 7.3 RBC 3.39 L Hgb 10.1 L Hct 30.9 L MCV 91 MCH 29.9 MCHC 32.8 RDW 15.9 H Plt Count 149 L Seg Neutrophils % 67.8 Sodium 160.9 H 164.8 H Potassium 3.8 3.9 Chloride 130 H 132 H Carbon Dioxide 21 L 20 L Anion Gap 10 13 BUN 104 H 103 H Creatinine 3.06 H 2.96 H Est GFR ( Amer) 19 L 19 L Glucose 110 101 Calcium 9.1 9.6 Magnesium Total Bilirubin AST Alkaline Phosphatase Total Protein Albumin 02/09/20 06:03 WBC RBC Hgb Hct MCV MCH MCHC RDW Plt Count Seg Neutrophils % Sodium 166.8 H Potassium 4.0 Chloride 135 H Carbon Dioxide 19 L Anion Gap 13 BUN 100 H Creatinine 2.86 H Est GFR ( Amer) 20 L Glucose 106 Calcium 9.7 Magnesium 1.8 Total Bilirubin 0.8 AST 55 H Alkaline Phosphatase 160 H Total Protein 6.0 L Albumin 3.0 L 02/05/20 02/06/20 02/07/20 17:10 06:40 04:24 Troponin I 0.065 NT-Pro-B Natriuret Pep 2900 H 7740 H 02/08/20 04:35 Troponin I NT-Pro-B Natriuret Pep 31981 H Impressions: Head CT 02/05/20 18:05 IMPRESSION: 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 Right maxillary sinus disease. No acute finding. EVIDENCE OF ACUTE STROKE: NO. Renal Ultrasound 02/05/20 20:16 IMPRESSION: No definite acute findings. Chest X-Ray 02/07/20 06:00 IMPRESSION: MILD CARDIOMEGALY AND VASCULAR CONGESTION. NO OTHER SIGNIFICANT FINDINGS. Assessment and Plan - Diagnosis (1) Acute kidney injury Is this a current diagnosis for this admission?: Yes Plan: * Nonoliguric, improving. * Monitor urine output. 02/08/2020-patient admitted with nonoliguric kidney failure. Creatinine is proving on daily basis. BUN is also improving. Plan is to closely monitor the labs on daily basis. Presently on Ringer lactate 60 cc/h. Patient is n.p.o. and to request for speech consult tomorrow. 02/09/2020-latest serum creatinine is 2.8. On admit patient it is 16. Most likely secondary to severe dehydration. And is on LR until this morning fluids are changed to D5W at 75 cc/h because of hyponatremia. (2) Metabolic acidosis Is this a current diagnosis for this admission?: Yes Plan: * This patient has a combined non-anion gap and anion gap metabolic acidosis, likely owing to uremia in addition to high volume intravenous fluid resuscitation. * Diurese today. * * * 02/08/2020-patient admitted with non-anion gap, gap metabolic acidosis. Resolving. Bicarb is 16 today. * * 02/09/2020-serum bicarb today is 20. Metabolic acidosis is improving. 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 (4) Hypernatremia Is this a current diagnosis for this admission?: Yes Plan: * LR at 60 mL/h. * * * 02/08/2020-patient is on LR 60 cc/h. Latest serum sodium is 160. Asymptomatic. Plan is to continue the present management at this time. To repeat the labs tomorrow. * * * 02/09/2020-serum sodium is 166.8 this morning started on D5W at 75 cc/h. To monitor the labs given to 6 hours no change in outpatient mental status. Patient is still aphasic with right-sided weakness. (5) Stage II pressure sore Qualifiers: Pressure injury location: buttock Laterality: right Qualified Code(s): L89.312 - Pressure ulcer of right buttock, stage 2 Is this a current diagnosis for this admission?: Yes Plan: Wound care consult (6) UTI (urinary tract infection) Qualifiers: Urinary tract infection type: acute cystitis Hematuria presence: without hematuria Qualified Code(s): N30.00 - Acute cystitis without hematuria Is this a current diagnosis for this admission?: Yes Plan: * UA: greater than 180 WBC, positive leukocyte esterase, negative nitrite * Start Rocephin. * Follow-up urine cultures. * * * 02/08/2020-urine culture is positive. Presently on IV Rocephin. Urine culture is growing gram-negative rods and E. coli. Blood culture positive for Staphylococcus species. Probably contamination. (7) Hyperkalemia Is this a current diagnosis for this admission?: Yes Plan: Resolved - Time Anticipated Discharge Disposition: [facility] Facility Anticipated Discharge Timeframe: within 72 hours
[2020-02-09] MEDS: DEXTROSE 5%-WATER 1000 ML 1,000 ML IV PRN (10:40)
[2020-02-09 10:44] LABS: ANION GAP 13 (5-19); BLOOD UREA NITROGEN 96 mg/dL (7-20); CALCIUM 9.5 mg/dL (8.4-10.2); CARBON DIOXIDE 19 mmol/L (22-30); CHLORIDE 135 mmol/L (98-107); GLUCOSE 99 mg/dL (75-110); POTASSIUM 3.9 mmol/L (3.6-5.0)
[2020-02-09] MEDS: MEROPENEM 1 GM in NORMAL SALINE 50 ML IV SCH (11:31)
[2020-02-09] MEDS: NORMAL SALINE INJ/PF 0.9% 10 ML SDV IV SCH ×2 (11:33→21:53)
--- NOTE | 2020-02-09 13:28 | RADIOLOGY REPORT (SQ) ---
EXAM DESCRIPTION: CT ABD/PELVIS NO ORAL OR IV IMAGES COMPLETED DATE/TIME: 02/09/2020 1:02 pm REASON FOR STUDY: n/v COMPARISON: Renal ultrasound from 02/05/2020. TECHNIQUE: CT scan of the abdomen and pelvis performed without intravenous or oral contrast. Images reviewed with lung, soft tissue, and bone windows. Reconstructed coronal and sagittal MPR images revi ewed. All images stored on PACS. All CT scanners at this facility use dose modulation, iterative reconstruction, and/or weight based d osing when appropriate to reduce radiation dose to as low as reasonably achievable (ALARA). [facility]: Dose Right [facility]: CareDose [facility]: Dose Right [facility]: Teradose 4D [facility]: Smart [employer] RADIATION DOSE: CT Rad equipment meets quality standard of care and radiation dose reduction techniq ues were employed. CTDIvol: 8.2 mGy. DLP: 438 mGy-cm. LIMITATIONS: None. FINDINGS: LOWER CHEST: No acute abnormality. NON-CONTRASTED LIVER, SPLEEN, ADRENALS: Evaluation is limited by the absence of intravenous contrast. There is no evidence hepatic steatosis. The spleen is normal in size. There is a 10 x 7 mm left a drenal myelolipoma (image 67 of series 601). PANCREAS: No acute gross abnormality of the pancreas. GALLBLADDER: Cholelithiasis. There is no pericholecystic inflammation. RIGHT KIDNEY AND URETER: Evaluation is limited by the absence of intravenous contrast. There is a 3 x 2.8 cm AML (image 30 of series 2). There is no hydronephrosis, nephrolithiasis, hydroureter or ure terolithiasis. LEFT KIDNEY AND URETER: Evaluation is limited by the absence of intravenous contrast. The kidney is atrophic. The calcifications that project within the renal sinus likely represent caliceal calculi. There is no hydronephrosis, hydroureter or ureterolithiasis. AORTA AND RETROPERITONEUM: No aneurysm of the abdominal aorta. There is no retroperitoneal adenopath y, hemorrhage or mass. BOWEL AND PERITONEAL CAVITY: No bowel obstruction, bowel wall thickening or pericolonic/ perienteric inflammation. There is no mesenteric adenopathy, free intraperitoneal fluid or mesenteric/ omental i nflammation. APPENDIX: Normal. PELVIS, BLADDER, AND ABDOMINAL WALL: There is a Quintero catheter within the contracted urinary bladder. There is no abnormality of the uterus or adnexa that is apparent on CT. There is a fat containing umbilical hernia. BONES: No fracture or osseous lesion. OTHER: No other finding. IMPRESSION: 1. 10 x 7 mm left adrenal myelolipoma (image 67 of series 601). 2. 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 3. Quintero catheter within the urinary bladder. 3. Severe atrophy of the left kidney. COMMENT: Quality ID # [id number]: Final reports with documentation of one or more dose reduction techniques (e.g., Automated exposure control, adjustment of the mA and/or kV according to patient size, use of iterative reconstruction technique) TECHNICAL DOCUMENTATION: JOB ID: [id number] 2010 [employer]- All Rights Reserved Reading location - IP/workstation name: [email or web address]
[2020-02-09] MEDS: ALBUMIN HUMAN 12.5 GM/50 ML RTUINJ IV SCH ×4 (14:44→17:27)
--- NOTE | 2020-02-09 15:20 | CDI QUERY ---
CDI Query CDI Review: We are seeking further clarification of documentation to reflect the severity of illness of your patient. Per ED Notes: 64-year-old female arrives by EMS from [facility] where patient has had no to little p.o. input for least 2 days. BUN of 219 and a creatinine of 16. .. Patient was at the [facility] [place] last month with a right sided paresthesia secondary to CVA . Patient's blood pressure continues to be low at 76/35 with heart rate 93. temperature was only 94.5. also patient has a potassium of 7.0 and was given D50 1 amp and 10 units of insulin. Per Critical Care Admission Notes: 64-year-old female with a remote history of intracranial bleed, CAD status post MT and GERD. She was admitted from a [facility] following a COVID-19 infection 3 weeks ago complicated by a CVA. Over the past 48 hours, patient has had very limited activity and has not had any p.o. intake. She presented with mental status changes, hypotension and severe metabolic derangement. Noted in Critical Care Progress Notes: Acute kidney injury Is this a current diagnosis for this admission?: Yes Plan: Nonoliguric. Monitor urine output. Clinically, this patient is suspicious for developing a post ATN diuresis. Based on your medical judgment, can you further clarify in the Progress Notes (and the Discharge Summary) confirmed or suspected underlying cause for this patients MAGGIE: Acute Tubular Necrosis Acute Cortical Necrosis Acute Glomerulonephritis Pre-Renal Acute Kidney Injury Other condition: (please specify) None of the above /Not applicable Thank you for your consideration. RAMOS Roca RN Clinical Correctional Medicine Physician Physician Advisor [email or web address]
[2020-02-09 15:41] LABS: ANION GAP 9 (5-19); BLOOD UREA NITROGEN 90 mg/dL (7-20); CALCIUM 9.4 mg/dL (8.4-10.2); CARBON DIOXIDE 20 mmol/L (22-30); CHLORIDE 134 mmol/L (98-107); GLUCOSE 122 mg/dL (75-110); POTASSIUM 3.7 mmol/L (3.6-5.0)
--- NOTE | 2020-02-09 17:38 | XCELERA REPORT ---
[address] [address] Transthoracic Echocardiogram Report Name: FINESSE CHAVEZ Age: 64 yrs Gender: Female : 1955 Patient Status: Inpatient Patient Location: [address] [place], [place] [address] Study Date: 02/09/2020 09:35 AM Height: 60 in Weight: 156 lb BSA: 1.7 m2 Procedure: A two-dimensional transthoracic echocardiogram with color flow and Doppler was performed. The study was technically difficult with many images being suboptimal in quality. Images were not obtained from all of the standard acoustic windows due to the limited scope of the study. Reason For Study: chf History: CHF. Ordering Physician: STONEY MIRANDA Performed By: Kenya Chung Interpretation Summary difficult/limited due to pt. altered mental status The left ventricle is normal in size. There is normal left ventricular wall thickness. No True apical 2 chamber views obtained.Hence cannot comment on the apical anterior , the basal anterior, the basal inferior and apical inferior alexandra.The mid anterior , the mid inferior and the rest of the LV alexandra contract normally. .LVEF is normal and is greater than 65% in the limited views. Doppler measurements suggest impaired left ventricular relaxation, which is associated with grade I/IV or mild diastolic dysfunction There is no thrombus. Probably no ASD,VSD,or PFO seen. The right ventricle is not well visualized secondary to technical limitations The right atrium is normal. Right atrium not well visualized secondary to technical limitations The left atrial size is normal. There is no evidence of mitral valve prolapse. There is no vegetation seen on the mitral valve. There is no mitral valve stenosis. There is no mitral regurgitation noted. There is no aortic valve stenosis There is no LVOT obstruction. There is a mild amount of aortic regurgitation There is no tricuspid stenosis. No tricuspid regurgitation. Tricuspid regurgitation jet envelope not well defined to measure RV systolic pressure accurately. The pulmonic valve is not well visualized. The aortic root is not well visualized but is probably normal size. The inferior vena cava appeared normal and decreased > 50% with respiration (RAP 5-10 mmHg) There is no pericardial effusion. MMode/2D Measurements & Calculations RVDd: 2.1 cm LVIDd: 4.2 cm FS: 32.8 % Ao root diam: 2.4 cm IVSd: 0.69 cm LVIDs: 2.8 cm EDV(Teich): 76.8 ml Ao root area: 4.4 cm2 LVPWd: 0.82 cm ESV(Teich): 29.4 ml EF(Teich): 61.7 % Doppler Measurements & Calculations MV E max bob: MV dec slope: Ao V2 max: LV V1 max P.4 cm/sec 420.4 cm/sec2 107.7 cm/sec 3.1 mmHg MV A max bob: MV dec time: 0.15 secAo max PG: LV V1 max: 86.3 cm/sec 4.6 mmHg 87.8 cm/sec MV E/A: 0.75 Left Ventricle The left ventricle is normal in size. There is normal left ventricular wall thickness. No True apical 2 chamber views obtained.Hence cannot comment on the apical anterior , the basal anterior, the basal inferior and apical inferior alexandra.The mid anterior , the mid inferior and the rest of the LV alexandra contract normally. .LVEF is normal and is greater than 65% in the limited views. Doppler measurements suggest impaired left ventricular relaxation, which is associated with grade I/IV or mild diastolic dysfunction. There is no thrombus. Probably no ASD,VSD,or PFO seen. Right Ventricle The right ventricle is not well visualized secondary to technical limitations. Atria The right atrium is normal. Right atrium not well visualized secondary to technical limitations. The left atrial size is normal. Mitral Valve There is no evidence of mitral valve prolapse. There is no vegetation seen on the mitral valve. There is no mitral valve stenosis. There is no mitral regurgitation noted. Aortic Valve There is no aortic valvular vegetation. There is no aortic valve stenosis. There is no LVOT obstruction. There is a mild amount of aortic regurgitation. Tricuspid Valve There is no tricuspid stenosis. No tricuspid regurgitation. Tricuspid regurgitation jet envelope not well defined to measure RV systolic pressure accurately. Pulmonic Valve The pulmonic valve is not well visualized. Great Vessels The aortic root is not well visualized but is probably normal size. The inferior vena cava appeared normal and decreased > 50% with respiration (RAP 5-10 mmHg). Effusions There is no pericardial effusion. : STONEY MIRANDA Lakshmi
[2020-02-09] MEDS: CEFTRIAXONE 1 GM/D5W RTU 1 GM/50 ML RTUPB IV SCH (18:45)
[2020-02-09 19:27] LABS: ANION GAP 13 (5-19); BLOOD UREA NITROGEN 83 mg/dL (7-20); CALCIUM 9.7 mg/dL (8.4-10.2); CARBON DIOXIDE 20 mmol/L (22-30); CHLORIDE 132 mmol/L (98-107); GLUCOSE 99 mg/dL (75-110); POTASSIUM 3.8 mmol/L (3.6-5.0)
[2020-02-09 23:09] LABS: ANION GAP 7 (5-19); BLOOD UREA NITROGEN 83 mg/dL (7-20); CALCIUM 9.7 mg/dL (8.4-10.2); CARBON DIOXIDE 23 mmol/L (22-30); CHLORIDE 133 mmol/L (98-107); GLUCOSE 115 mg/dL (75-110); POTASSIUM 3.6 mmol/L (3.6-5.0)
[2020-02-10] MEDS: INSULIN REG, HUMAN 100 UNIT/ML 3 ML VIAL (PYX) SUBCUT SCH ×4 (00:19→21:54)
[2020-02-10 02:46] LABS: ANION GAP 11 (5-19); BLOOD UREA NITROGEN 74 mg/dL (7-20); CALCIUM 9.5 mg/dL (8.4-10.2); CARBON DIOXIDE 20 mmol/L (22-30); CHLORIDE 134 mmol/L (98-107); GLUCOSE 128 mg/dL (75-110); POTASSIUM 3.3 mmol/L (3.6-5.0)
[2020-02-10] MEDS: DEXTROSE 5%-WATER 1000 ML 1,000 ML IV PRN ×2 (04:46→20:28)
[2020-02-10] MEDS: HEPARIN SOD (PORCINE) 5,000 UNIT/ML 1 ML VIAL SUBCUT SCH ×3 (06:44→21:39)
[2020-02-10 07:17] LABS: ANION GAP 10 (5-19); BLOOD UREA NITROGEN 72 mg/dL (7-20); CALCIUM 9.7 mg/dL (8.4-10.2); CARBON DIOXIDE 21 mmol/L (22-30); CHLORIDE 133 mmol/L (98-107); GLUCOSE 124 mg/dL (75-110); POTASSIUM 3.5 mmol/L (3.6-5.0)
[2020-02-10] MEDS ORDERED: MEROPENEM 1 GM VIAL IV SCH (10:00)
[2020-02-10 11:06] LABS: ANION GAP 7 (5-19); BLOOD UREA NITROGEN 68 mg/dL (7-20); CALCIUM 9.5 mg/dL (8.4-10.2); CARBON DIOXIDE 22 mmol/L (22-30); CHLORIDE 131 mmol/L (98-107); GLUCOSE 134 mg/dL (75-110); POTASSIUM 3.4 mmol/L (3.6-5.0)
[2020-02-10] MEDS: MEROPENEM 1 GM in NORMAL SALINE 50 ML IV SCH (12:50)
[2020-02-10] MEDS: NORMAL SALINE INJ/PF 0.9% 10 ML SDV IV SCH ×2 (12:51→21:55)
--- NOTE | 2020-02-10 13:37 | PDOC PROGRESS REPORT ---
Subjective Date:: 02/10/20 Subjective:: Patient is minimally participatory in the encounter. Unable to answer questions appropriately. Sodium still remains very high. Reason For Visit: HYPOTENSION,SEVERE METABOLIC DERANGEMENT Physical Exam Vital Signs: Temp Pulse Resp BP Pulse Ox 97.7 F 66 18 141/61 H 92 02/10/20 08:19 02/10/20 08:19 02/10/20 08:19 02/10/20 08:19 02/10/20 08:19 Intake & Output 02/09/20 02/10/20 02/11/20 06:59 06:59 06:59 Intake Total 674 2235 Output Total 2355 975 Balance -1681 1260 Weight 66 kg 70 kg General appearance: PRESENT: no acute distress, cooperative, well-developed Head exam: PRESENT: normocephalic Ear exam: PRESENT: normal external ear exam. ABSENT: bleeding, drainage Mouth exam: PRESENT: moist, tongue midline Teeth exam: PRESENT: poor dentation Respiratory exam: PRESENT: clear to auscultation carl, symmetrical, unlabored. ABSENT: rales, rhonchi, tachypnea, wheezes Cardiovascular exam: PRESENT: RRR, +S1, +S2. ABSENT: bradycardia, diastolic murmur, irregular rhythm, systolic murmur, tachycardia GI/Abdominal exam: PRESENT: normal bowel sounds, soft. ABSENT: distended, guarding, tenderness Rectal exam: PRESENT: deferred Extremities exam: ABSENT: pedal edema Musculoskeletal exam: PRESENT: normal inspection. ABSENT: deformity, dislocation Neurological exam: PRESENT: alert, altered, awake, oriented to person - Appears to respond to her name by making eye contact however unable to answer any other questions. ABSENT: oriented to place, oriented to time, oriented to situation Psychiatric exam: PRESENT: flat affect, other - Minimally verbal. Unable to fully assess.. ABSENT: agitated, anxious Focused psych exam: PRESENT: other - Unable to assess Results Laboratory Results: 02/09/20 06:03 02/10/20 10:14 02/09/20 02/09/20 02/09/20 14:48 18:19 21:49 Sodium 163.3 H 165.3 H 162.8 H Potassium 3.7 3.8 3.6 Chloride 134 H 132 H 133 H Carbon Dioxide 20 L 20 L 23 Anion Gap 9 13 7 BUN 90 H 83 H 83 H Creatinine 2.49 H 2.72 H 2.32 H Est GFR ( Amer) 24 L 21 L 26 L Glucose 122 H 99 115 H Calcium 9.4 9.7 9.7 02/10/20 02/10/20 02/10/20 02:27 06:02 10:14 Sodium 165.4 H 164.2 H 160.2 H Potassium 3.3 L 3.5 L 3.4 L Chloride 134 H 133 H 131 H Carbon Dioxide 20 L 21 L 22 Anion Gap 11 10 7 BUN 74 H 72 H 68 H Creatinine 2.35 H 2.26 H 2.17 H Est GFR ( Amer) 25 L 26 L 28 L Glucose 128 H 124 H 134 H Calcium 9.5 9.7 9.5 02/06/20 05:25 Catheterized Urine Urine Culture - Final Escherichia Coli Esbl Escherichia Coli 02/05/20 17:10 Blood Blood Culture (PCR) - Final Staphylococcus Species 02/05/20 17:10 Blood Blood Culture - Final Staphylococcus Hominis 02/05/20 02/06/20 02/07/20 17:10 06:40 04:24 Troponin I 0.065 NT-Pro-B Natriuret Pep 2900 H 7740 H 02/08/20 04:35 Troponin I NT-Pro-B Natriuret Pep 26396 H Impressions: Head CT 02/05/20 18:05 IMPRESSION: 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 Right maxillary sinus disease. No acute finding. EVIDENCE OF ACUTE STROKE: NO. Renal Ultrasound 02/05/20 20:16 IMPRESSION: No definite acute findings. Chest X-Ray 02/07/20 06:00 IMPRESSION: MILD CARDIOMEGALY AND VASCULAR CONGESTION. NO OTHER SIGNIFICANT FINDINGS. Abdomen/Pelvis CT 02/09/20 00:00 IMPRESSION: 1. 10 x 7 mm left adrenal myelolipoma (image 67 of series 601). 2. 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 3. Quintero catheter within the urinary bladder. 3. Severe atrophy of the left kidney. 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 Cerebrovascular disease type: cerebral infarction Hemiparesis laterality: unspecified Qualified Code(s): I69.359 - Hemiplegia and hemiparesis following cerebral infarction affecting unspecified side Is this a current diagnosis for this admission?: No (6) Stage II pressure sore Qualifiers: Pressure injury location: buttock Laterality: right Qualified Code(s): L89.312 - Pressure ulcer of right buttock, stage 2 Is this a current diagnosis for this admission?: Yes (7) Hyperkalemia Is this a current diagnosis for this admission?: Yes - Plan Summary Summary: (1) Acute kidney injury Is this a current diagnosis for this admission?: Yes Plan: * Nonoliguric, improving. * Monitor urine output. 02/08/2020-patient admitted with nonoliguric kidney failure. Creatinine is p roving on daily basis. BUN is also improving. Plan is to closely monitor the labs on daily basis. Presently on Ringer lactate 60 cc/h. Patient is n.p.o. and to request for speech consult tomorrow. 02/09/2020-latest serum creatinine is 2.8. On admit patient it is 16. Most likely secondary to severe dehydration. And is on LR until this morning fluids are changed to D5W at 75 cc/h because of hyponatremia. (2) Metabolic acidosis Is this a current diagnosis for this admission?: Yes Plan: * This patient has a combined non-anion gap and anion gap metabolic acidosis, likely owing to uremia in addition to high volume intravenous fluid resuscitation. * Diurese today. * 02/08/2020-patient admitted with non-anion gap, gap metabolic acidosis. Resolving. Bicarb is 16 today. * 02/09/2020-serum bicarb today is 20. Metabolic acidosis is improving. 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 (4) Hypernatremia Is this a current diagnosis for this admission?: Yes Plan: * LR at 60 mL/h. * 02/08/2020-patient is on LR 60 cc/h. Latest serum sodium is 160. Asymptoma tic. Plan is to continue the present management at this time. To repeat the labs tomorrow. * 02/09/2020-serum sodium is 166.8 this morning started on D5W at 75 cc/h. To monitor the labs given to 6 hours no change in outpatient mental status. Patient is still aphasic with right-sided weakness. (5) Stage II pressure sore Qualifiers: Pressure injury location: buttock Laterality: right Qualified Code(s): L89.312 - Pressure ulcer of right buttock, stage 2 Is this a current diagnosis for this admission?: Yes Plan: Wound care consult (6) UTI (urinary tract infection) Qualifiers: Urinary tract infection type: acute cystitis Hematuria presence: without hematuria Qualified Code(s): N30.00 - Acute cystitis without hematuria Is this a current diagnosis for this admission?: Yes Plan: * UA: greater than 180 WBC, positive leukocyte esterase, negative nitrite * Start Rocephin. * Follow-up urine cultures. * 02/08/2020-urine culture is positive. Presently on IV Rocephin. Urine culture is growing gram-negative rods and E. coli. Blood culture positive for Staphylococcus species. Probably contamination. (7) Hyperkalemia Is this a current diagnosis for this admission?: Yes Plan: Resolved 02/10/2020 I will increase her D5W to 100 mL an hour. This should easily keep her within a safe rate of change for her serum sodium. The patient grew ESBL E. coli. She is now on meropenem. Staphylococcus organism in the blood culture is coagulase-negative and most likely a contaminant. No treatment required. The patient is stable. She is currently aphasic from a stroke approximately 3 weeks ago. She also has hemiparesis. I will ask physical therapy to assess. I discussed her swallow study with speech therapy. Very limited aspiration risk and so diet has been ordered. We will assess buttock lesion with the nurse tomorrow. Will place wound care consult ordered. Patient was undergoing Accu-Cheks while NPO. Now the diet has been ordered we will continue to monitor. Will DC Accu-Cheks if appropriate. Acute kidney injury most likely due to a combination of the infection and prerenal status. Continue to treat. BUN and creatinine slowly improving. Remains with excellent urine output. Continue to monitor intake and output Potassium is no longer elevated. In fact it is borderline low. Start potassium supplement. Monitor closely. - Time Time Spent with patient: 15-24 minutes Medications reviewed and adjusted accordingly: Yes Anticipated Discharge Disposition: Snf Facility Anticipated Discharge Timeframe: Unknown
[2020-02-10 16:21] LABS: ANION GAP 7 (5-19); BLOOD UREA NITROGEN 62 mg/dL (7-20); CALCIUM 9.5 mg/dL (8.4-10.2); CARBON DIOXIDE 23 mmol/L (22-30); CHLORIDE 130 mmol/L (98-107); GLUCOSE 125 mg/dL (75-110); POTASSIUM 3.4 mmol/L (3.6-5.0)
[2020-02-10] MEDS: POTASSI CL 20 MEQ/50 ML RIDER 20 MEQ/50 ML RTUPB IV SCH ×2 (20:27→22:49)
[2020-02-10] MEDS: LATANOPROST 0.005% OPH SOLN 2.5 ML OP SCH (21:54)
[2020-02-10] MEDS: MELATONIN 3 MG TABLET PO SCH (21:55)
[2020-02-10] MEDS ORDERED: POTASSI CL 20 MEQ/50 ML RIDER 20 MEQ/50 ML RTUPB IV SCH (23:00)
[2020-02-11] MEDS: HEPARIN SOD (PORCINE) 5,000 UNIT/ML 1 ML VIAL SUBCUT SCH ×3 (05:20→21:25)
[2020-02-11] MEDS: MEROPENEM 500 MG in NORMAL SALINE 50 ML IV SCH ×2 (05:21→17:30)
[2020-02-11 06:59] LABS: HEMATOCRIT 27.6 % (36.0-47.0); MEAN CORPUSCULAR HEMOGLOBIN 30.5 pg (27.0-33.4); MEAN CORPUSCULAR HGB CONC 32.7 g/dL (32.0-36.0); MEAN CORPUSCULAR VOLUME 93 fl (80-97); PLATELET COUNT 134 10^3/uL (150-450); RED BLOOD COUNT 2.97 10^6/uL (3.72-5.28); RED CELL DISTRIBUTION WIDTH 15.5 % (11.5-14.0); WHITE BLOOD COUNT 9.7 10^3/uL (4.0-10.5)
[2020-02-11 07:16] LABS: ANION GAP 6 (5-19); BLOOD UREA NITROGEN 51 mg/dL (7-20); CALCIUM 9.1 mg/dL (8.4-10.2); CARBON DIOXIDE 22 mmol/L (22-30); CHLORIDE 125 mmol/L (98-107); GLUCOSE 121 mg/dL (75-110); POTASSIUM 3.3 mmol/L (3.6-5.0)
[2020-02-11] MEDS: INSULIN REG, HUMAN 100 UNIT/ML 3 ML VIAL (PYX) SUBCUT SCH ×2 (07:47→12:04)
[2020-02-11] MEDS ORDERED: LISINOPRIL 10 MG TABLET PO SCH (08:00)
[2020-02-11] MEDS: DEXTROSE 5%-WATER 1000 ML 1,000 ML IV PRN (08:38)
[2020-02-11] MEDS ORDERED: POTASSIUM CHLORIDE 10 MEQ TABLET.ER PO SCH (10:00)
[2020-02-11] MEDS: NORMAL SALINE INJ/PF 0.9% 10 ML SDV IV SCH ×2 (10:08→21:30)
[2020-02-11] MEDS: CHOLECALCIFEROL (D3) 1,000 UNIT (25 MCG) TABLET PO SCH (10:14)
[2020-02-11] MEDS: DEXTROSE 5%-WATER 1000 ML 1,000 ML with POTASSIUM CHLORIDE 20 MEQ IV PRN ×4 (11:20→21:31)
--- NOTE | 2020-02-11 12:03 | PDOC PROGRESS REPORT ---
Subjective Date:: 02/11/20 Subjective:: I spoke to the nurse. Earlier today the patient was responding with yes and no answers. Answers seem to be appropriate. She was more interactive. At the time of this visit she only makes occasional eye contact. She does not attempt to answer any questions. With regard to her oral intake she had some peaches but has not participated with any other portions of her meal. Oral medications have been somewhat difficult to administer as well. Reason For Visit: HYPOTENSION,SEVERE METABOLIC DERANGEMENT Physical Exam Vital Signs: Temp Pulse Resp BP Pulse Ox 97.7 F 89 20 146/82 H 97 02/11/20 11:42 02/11/20 11:42 02/11/20 11:42 02/11/20 11:42 02/11/20 11:42 Intake & Output 02/10/20 02/11/20 02/12/20 06:59 06:59 06:59 Intake Total 2235 2380 Output Total 975 975 Balance 1260 1405 Weight 70 kg 68.1 kg General appearance: PRESENT: no acute distress, well-developed. ABSENT: cooperative Head exam: PRESENT: atraumatic, normocephalic Ear exam: PRESENT: normal external ear exam. ABSENT: bleeding, drainage Respiratory exam: PRESENT: clear to auscultation carl, unlabored, other - Exam was limited as patient pushed me away. ABSENT: rales, rhonchi, wheezes Cardiovascular exam: PRESENT: RRR, +S1, +S2 GI/Abdominal exam: PRESENT: other - Unable to assess Rectal exam: PRESENT: deferred Neurological exam: PRESENT: alert, awake, motor sensory deficit - Right hemiplegia, aphasic, other - Not as interactive she was with the nurse earlier today. Psychiatric exam: PRESENT: flat affect. ABSENT: agitated, anxious Focused psych exam: PRESENT: other - Unable to assess Results Laboratory Results: 02/11/20 06:41 02/11/20 06:41 02/10/20 02/11/20 02/11/20 15:02 06:41 06:41 WBC 9.7 RBC 2.97 L Hgb 9.0 L Hct 27.6 L MCV 93 MCH 30.5 MCHC 32.7 RDW 15.5 H Plt Count 134 L Sodium 159.6 H 153.4 H Potassium 3.4 L 3.3 L Chloride 130 H 125 H Carbon Dioxide 23 22 Anion Gap 7 6 BUN 62 H 51 H Creatinine 2.06 H 1.70 H Est GFR ( Amer) 29 L 37 L Glucose 125 H 121 H Calcium 9.5 9.1 02/05/20 20:08 Blood Blood Culture - Final NO GROWTH IN 5 DAYS 02/05/20 02/06/20 02/07/20 17:10 06:40 04:24 Troponin I 0.065 NT-Pro-B Natriuret Pep 2900 H 7740 H 02/08/20 04:35 Troponin I NT-Pro-B Natriuret Pep 25087 H Impressions: Head CT 02/05/20 18:05 IMPRESSION: 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 Right maxillary sinus disease. No acute finding. EVIDENCE OF ACUTE STROKE: NO. Renal Ultrasound 02/05/20 20:16 IMPRESSION: No definite acute findings. Chest X-Ray 02/07/20 06:00 IMPRESSION: MILD CARDIOMEGALY AND VASCULAR CONGESTION. NO OTHER SIGNIFICANT FINDINGS. Abdomen/Pelvis CT 02/09/20 00:00 IMPRESSION: 1. 10 x 7 mm left adrenal myelolipoma (image 67 of series 601). 2. 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 3. Quintero catheter within the urinary bladder. 3. Severe atrophy of the left kidney. 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 Cerebrovascular disease type: cerebral infarction Hemiparesis laterality: unspecified Qualified Code(s): I69.359 - Hemiplegia and hemiparesis following cerebral infarction affecting unspecified side Is this a current diagnosis for this admission?: No (6) Stage II pressure sore Qualifiers: Pressure injury location: buttock Laterality: right Qualified Code(s): L89.312 - Pressure ulcer of right buttock, stage 2 Is this a current diagnosis for this admission?: Yes (7) Hyperkalemia Is this a current diagnosis for this admission?: Yes - Plan Summary Summary: (1) Acute kidney injury Is this a current diagnosis for this admission?: Yes Plan: * Nonoliguric, improving. * Monitor urine output. 02/08/2020-patient admitted with nonoliguric kidney failure. Creatinine is proving on daily basis. BUN is also improving. Plan is to closely monitor the labs on daily basis. Presently on Ringer lactate 60 cc/h. Patient is n.p.o. and to request for speech consult tomorrow. 02/09/2020-latest serum creatinine is 2.8. On admit patient it is 16. Most likely secondary to severe dehydration. And is on LR until this morning fluids are changed to D5W at 75 cc/h because of hyponatremia. (2) Metabolic acidosis Is this a current diagnosis for this admission?: Yes Plan: * This patient has a combined non-anion gap and anion gap metabolic acidosis, likely owing to uremia in addition to high volume intravenous fluid resuscitation. * Diurese today. * 02/08/2020-patient admitted with non-anion gap, gap metabolic acidosis. Resolving. Bicarb is 16 today. * 02/09/2020-serum bicarb today is 20. Metabolic acidosis is improving. 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 (4) Hypernatremia Is this a current diagnosis for this admission?: Yes Plan: * LR at 60 mL/h. * 02/08/2020-patient is on LR 60 cc/h. Latest serum sodium is 160. Asymptomatic. Plan is to continue the present management at this time. To repeat the labs tomorrow. * 02/09/2020-serum sodium is 166.8 this morning started on D5W at 75 cc/h. To monitor the labs given to 6 hours no change in outpatient mental status. Patient is still aphasic with right-sided weakness. (5) Stage II pressure sore Qualifiers: Pressure injury location: buttock Laterality: right Qualified Code(s): L89.312 - Pressure ulcer of right buttock, stage 2 Is this a current diagnosis for this admission?: Yes Plan: Wound care consult (6) UTI (urinary tract infection) Qualifiers: Urinary tract infection type: acute cystitis Hematuria presence: without hematuria Qualified Code(s): N30.00 - Acute cystitis without hematuria Is this a current diagnosis for this admission?: Yes Plan: * UA: greater than 180 WBC, positive leukocyte esterase, negative nitrite * Start Rocephin. * Follow-up urine cultures. * 02/08/2020-urine culture is positive. Presently on IV Rocephin. Urine culture is growing gram-negative rods and E. coli. Blood culture positive for Staphylococcus species. Probably contamination. (7) Hyperkalemia Is this a current diagnosis for this admission?: Yes Plan: Resolved 02/10/2020 I will increase her D5W to 100 mL an hour. This should easily keep her within a safe rate of change for her serum sodium. The patient grew ESBL E. coli. She is now on meropenem. Staphylococcus organism in the blood culture is coagulase-negative and most likely a contaminant. No treatment required. The patient is stable. She is currently aphasic from a stroke approximately 3 weeks ago. She also has hemiparesis. I will ask physical therapy to assess. I discussed her swallow study with speech therapy. Very limited aspiration risk and so diet has been ordered. We will assess buttock lesion with the nurse tomorrow. Will place wound care consult ordered. Patient was undergoing Accu-Cheks while NPO. Now the diet has been ordered we will continue to monitor. Will DC Accu-Cheks if appropriate. Acute kidney injury most likely due to a combination of the infection and prerenal status. Continue to treat. BUN and creatinine slowly improving. Remains with excellent urine output. Continue to monitor intake and output Potassium is no longer elevated. In fact it is borderline low. Start potassium supplement. Monitor closely. 02/11/2020 Continue D5W but add potassium chloride. Continue to monitor electrolytes. BMP ordered every 12 hours. We will discontinue Accu-Cheks. These were ordered when the patient was n.p.o. She is getting dextrose in her fluids. This should make up for poor appetite. Acute kidney injury continues to improve. On meropenem for ESBL E. coli Mechanical soft diet ordered patient not participating particularly well. We will continue dextrose containing fluid. - Time Time Spent with patient: 15-24 minutes Medications reviewed and adjusted accordingly: Yes Anticipated Discharge Disposition: Residential Facility Anticipated Discharge Timeframe: Unknown
[2020-02-11] MEDS: MELATONIN 3 MG TABLET PO SCH (21:32)
[2020-02-11] MEDS: LATANOPROST 0.005% OPH SOLN 2.5 ML OP SCH (21:32)
[2020-02-12 01:38] LABS: ANION GAP 7 (5-19); BLOOD UREA NITROGEN 35 mg/dL (7-20); CALCIUM 8.4 mg/dL (8.4-10.2); CARBON DIOXIDE 22 mmol/L (22-30); CHLORIDE 121 mmol/L (98-107); GLUCOSE 109 mg/dL (75-110); POTASSIUM 3.4 mmol/L (3.6-5.0)
[2020-02-12] MEDS: HEPARIN SOD (PORCINE) 5,000 UNIT/ML 1 ML VIAL SUBCUT SCH ×3 (05:06→21:35)
[2020-02-12] MEDS: MEROPENEM 500 MG in NORMAL SALINE 50 ML IV SCH ×2 (05:13→17:51)
[2020-02-12] MEDS: DEXTROSE 5%-WATER 1000 ML 1,000 ML with POTASSIUM CHLORIDE 20 MEQ IV PRN ×2 (08:52)
[2020-02-12] MEDS: NORMAL SALINE INJ/PF 0.9% 10 ML SDV IV SCH ×2 (09:08→21:39)
[2020-02-12] MEDS: CHOLECALCIFEROL (D3) 1,000 UNIT (25 MCG) TABLET PO SCH ×2 (09:09→09:21)
[2020-02-12] MEDS ORDERED: DEXTROSE 5%-WATER 1000 ML 1,000 ML with POTASSIUM CHLORIDE 20 MEQ IV PRN ×2 (17:47)
--- NOTE | 2020-02-12 17:48 | PDOC PROGRESS REPORT ---
Subjective Date:: 02/12/20 Subjective:: Patient is resting comfortably. No new complaints. Reason For Visit: HYPOTENSION,SEVERE METABOLIC DERANGEMENT Physical Exam Vital Signs: Temp Pulse Resp BP Pulse Ox 97.8 F 99 18 139/88 H 97 02/12/20 16:06 02/12/20 16:06 02/12/20 16:06 02/12/20 16:06 02/12/20 16:06 Intake & Output 02/11/20 02/12/20 02/13/20 06:59 06:59 06:59 Intake Total 2430 2125 Output Total 975 850 Balance 1455 1275 Weight 68.1 kg 68.9 kg 68.9 kg General appearance: PRESENT: no acute distress Respiratory exam: PRESENT: clear to auscultation carl, symmetrical, unlabored. ABSENT: rales, rhonchi, tachypnea, wheezes Cardiovascular exam: PRESENT: RRR, +S1, +S2. ABSENT: bradycardia, diastolic murmur, irregular rhythm, systolic murmur, tachycardia GI/Abdominal exam: PRESENT: normal bowel sounds, soft. ABSENT: tenderness Rectal exam: PRESENT: deferred Neurological exam: PRESENT: motor sensory deficit - Right hemiplegia Psychiatric exam: PRESENT: flat affect. 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 Right maxillary sinus disease. No acute finding. EVIDENCE OF ACUTE STROKE: NO. Renal Ultrasound 02/05/20 20:16 IMPRESSION: No definite acute findings. Chest X-Ray 02/07/20 06:00 IMPRESSION: MILD CARDIOMEGALY AND VASCULAR CONGESTION. NO OTHER SIGNIFICANT FINDINGS. Abdomen/Pelvis CT 02/09/20 00:00 IMPRESSION: 1. 10 x 7 mm left adrenal myelolipoma (image 67 of series 601). 2. 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 3. Quintero catheter within the urinary bladder. 3. Severe atrophy of the left kidney. 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 Cerebrovascular disease type: cerebral infarction Hemiparesis laterality: unspecified Qualified Code(s): I69.359 - Hemiplegia and hemiparesis following cerebral infarction affecting unspecified side Is this a current diagnosis for this admission?: No (6) Stage II pressure sore Qualifiers: Pressure injury location: buttock Laterality: right Qualified Code(s): L89.312 - Pressure ulcer of right buttock, stage 2 Is this a current diagnosis for this admission?: Yes (7) Hyperkalemia Is this a current diagnosis for this admission?: Yes - Plan Summary Summary: (1) Acute kidney injury Is this a current diagnosis for this admission?: Yes Plan: * Nonoliguric, improving. * Monitor urine output. 02/08/2020-patient admitted with nonoliguric kidney failure. Creatinine is proving on daily basis. BUN is also improving. Plan is to closely monitor the labs on daily basis. Presently on Ringer lactate 60 cc/h. Patient is n.p.o. a nd to request for speech consult tomorrow. 02/09/2020-latest serum creatinine is 2.8. On admit patient it is 16. Most likely secondary to severe dehydration. And is on LR until this morning fluids are changed to D5W at 75 cc/h because of hyponatremia. (2) Metabolic acidosis Is this a current diagnosis for this admission?: Yes Plan: * This patient has a combined non-anion gap and anion gap metabolic acidosis, likely owing to uremia in addition to high volume intravenous fluid resuscitation. * Diurese today. * 02/08/2020-patient admitted with non-anion gap, gap metabolic acidosis. Resolving. Bicarb is 16 today. * 02/09/2020-serum bicarb today is 20. Metabolic acidosis is improving. 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 (4) Hypernatremia Is this a current diagnosis for this admission?: Yes Plan: * LR at 60 mL/h. * 02/08/2020-patient is on LR 60 cc/h. Latest serum sodium is 160. Asymptomatic. Plan is to continue the present management at this time. To repeat the labs tomorrow. * 02/09/2020-serum sodium is 166.8 this morning started on D5W at 75 cc/h. To monitor the labs given to 6 hours no change in outpatient mental status. Patient is still aphasic with right-sided weakness. (5) Stage II pressure sore Qualifiers: Pressure injury location: buttock Laterality: right Qualified Code(s): L89.312 - Pressure ulcer of right buttock, stage 2 Is this a current diagnosis for this admission?: Yes Plan: Wound care consult (6) UTI (urinary tract infection) Qualifiers: Urinary tract infection type: acute cystitis Hematuria presence: without hematuria Qualified Code(s): N30.00 - Acute cystitis without hematuria Is this a current diagnosis for this admission?: Yes Plan: * UA: greater than 180 WBC, positive leukocyte esterase, negative nitrite * Start Rocephin. * Follow-up urine cultures. * 02/08/2020-urine culture is positive. Presently on IV Rocephin. Urine culture is growing gram-negative rods and E. coli. Blood culture positive for Staphylococcus species. Probably contamination. (7) Hyperkalemia Is this a current diagnosis for this admission?: Yes Plan: Resolved 02/10/2020 I will increase her D5W to 100 mL an hour. This should easily keep her within a safe rate of change for her serum sodium. The patient grew ESBL E. coli. She is now on meropenem. Staphylococcus organism in the blood culture is coagulase-negative and most likely a contaminant. No treatment required. The patient is stable. She is currently aphasic from a stroke approximately 3 weeks ago. She also has hemiparesis. I will ask physical therapy to assess. I discussed her swallow study with speech therapy. Very limited aspiration risk and so diet has been ordered. We will assess buttock lesion with the nurse tomorrow. Will place wound care consult ordered. Patient was undergoing Accu-Cheks while NPO. Now the diet has been ordered we will continue to monitor. Will DC Accu-Cheks if appropriate. Acute kidney injury most likely due to a combination of the infection and prere nal status. Continue to treat. BUN and creatinine slowly improving. Remains with excellent urine output. Continue to monitor intake and output Potassium is no longer elevated. In fact it is borderline low. Start potassium supplement. Monitor closely. 02/11/2020 Continue D5W but add potassium chloride. Continue to monitor electrolytes. BMP ordered every 12 hours. We will discontinue Accu-Cheks. These were ordered when the patient was n.p.o. She is getting dextrose in her fluids. This should make up for poor appetite. Acute kidney injury continues to improve. On meropenem for ESBL E. coli Mechanical soft diet ordered patient not participating particularly well. We will continue dextrose containing fluid. 02/12/2020 No new complaints. Hypernatremia-sodium is down to 150. Hypokalemia-potassium is 3.4 despite putting potassium chloride in the IV fluid. I will increase the rate of the fluid and recheck tomorrow. Appetite is still poor. Acute kidney injury-BUN and creatinine continue to improve. ESBL E. coli-continue meropenem The patient is actually stable and I will downgrade from IMCU to medical floor. - Time Time Spent with patient: Less than 15 minutes Medications reviewed and adjusted accordingly: Yes Anticipated Discharge Disposition: Senior Care Facility Anticipated Discharge Timeframe: within 72 hours
[2020-02-12] MEDS: MELATONIN 3 MG TABLET PO SCH (21:40)
[2020-02-12] MEDS: LATANOPROST 0.005% OPH SOLN 2.5 ML OP SCH (21:56)
[2020-02-13] MEDS: HEPARIN SOD (PORCINE) 5,000 UNIT/ML 1 ML VIAL SUBCUT SCH ×3 (05:05→21:29)
[2020-02-13] MEDS: MEROPENEM 500 MG in NORMAL SALINE 50 ML IV SCH ×2 (06:36→17:49)
[2020-02-13 07:48] LABS: ALBUMIN 3.3 g/dL (3.5-5.0); ALKALINE PHOSPHATASE 121 U/L (38-126); ANION GAP 8 (5-19); ASPARTATE AMINO TRANSFERASE 39 U/L (14-36); BILIRUBIN,DIRECT 0.2 mg/dL (0.0-0.4); BILIRUBIN,TOTAL 0.6 mg/dL (0.2-1.3); BLOOD UREA NITROGEN 22 mg/dL (7-20); CALCIUM 8.5 mg/dL (8.4-10.2); CARBON DIOXIDE 19 mmol/L (22-30); CHLORIDE 115 mmol/L (98-107); GLUCOSE 95 mg/dL (75-110); POTASSIUM 3.9 mmol/L (3.6-5.0); TOTAL PROTEIN 6.4 g/dL (6.3-8.2)
--- NOTE | 2020-02-13 09:49 | PDOC PROGRESS REPORT ---
Subjective Date:: 02/13/20 Subjective:: The patient is awake and alert this morning. She was just cleaned and changed. Still aphasic. Reason For Visit: HYPOTENSION,SEVERE METABOLIC DERANGEMENT Physical Exam Vital Signs: Temp Pulse Resp BP Pulse Ox 97.4 F 80 18 152/87 H 98 02/13/20 07:33 02/13/20 07:33 02/13/20 07:33 02/13/20 07:33 02/13/20 07:33 Intake & Output 02/12/20 02/13/20 02/14/20 06:59 06:59 06:59 Intake Total 2125 50 Output Total 850 1200 Balance 1275 -1150 Weight 68.9 kg 68.8 kg General appearance: PRESENT: no acute distress, well-developed Head exam: PRESENT: atraumatic, normocephalic Eye exam: PRESENT: conjunctiva pink. ABSENT: scleral icterus Ear exam: PRESENT: normal external ear exam. ABSENT: bleeding, drainage Mouth exam: PRESENT: moist, tongue midline Respiratory exam: PRESENT: clear to auscultation carl - Anteriorly, symmetrical, unlabored. ABSENT: prolonged expiratory phas, rales, rhonchi, tachypnea, wheezes Cardiovascular exam: PRESENT: RRR, +S1, +S2. ABSENT: bradycardia, diastolic murmur, irregular rhythm, systolic murmur, tachycardia GI/Abdominal exam: PRESENT: normal bowel sounds, soft. ABSENT: distended, tenderness Rectal exam: PRESENT: deferred Gentrourinary exam: PRESENT: indwelling catheter Extremities exam: ABSENT: pedal edema Musculoskeletal exam: ABSENT: ambulatory, deformity, dislocation Neurological exam: PRESENT: alert, awake, motor sensory deficit - Right hemiplegia, aphasic Psychiatric exam: PRESENT: flat affect. ABSENT: agitated, anxious Focused psych exam: PRESENT: other - Unable to assess Skin exam: PRESENT: dry, normal color, warm, other - Decubitus ulcers. Just had new dressings applied therefore I did not examine specifically. Nurse reports improvement. 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 Right maxillary sinus disease. No acute finding. EVIDENCE OF ACUTE STROKE: NO. Renal Ultrasound 02/05/20 20:16 IMPRESSION: No definite acute findings. Chest X-Ray 02/07/20 06:00 IMPRESSION: MILD CARDIOMEGALY AND VASCULAR CONGESTION. NO OTHER SIGNIFICANT FINDINGS. Abdomen/Pelvis CT 02/09/20 00:00 IMPRESSION: 1. 10 x 7 mm left adrenal myelolipoma (image 67 of series 601). 2. 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 3. Quintero catheter within the urinary bladder. 3. Severe atrophy of the left kidney. 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 Cerebrovascular disease type: cerebral infarction Hemiparesis laterality: unspecified Qualified Code(s): I69.359 - Hemiplegia and hemiparesis following cerebral infarction affecting unspecified side Is this a current diagnosis for this admission?: No (6) Stage II pressure sore Qualifiers: Pressure injury location: buttock Laterality: right Qualified Code(s): L89.312 - Pressure ulcer of right buttock, stage 2 Is this a current diagnosis for this admission?: Yes (7) Hyperkalemia Is this a current diagnosis for this admission?: Yes - Plan Summary Summary: (1) Acute kidney injury Is this a current diagnosis for this admission?: Yes Plan: * Nonoliguric, improving. * Monitor urine output. 02/08/2020-patient admitted with nonoliguric kidney failure. Creatinine is proving on daily basis. BUN is also improving. Plan is to closely monitor the labs on daily basis. Presently on Ringer lactate 60 cc/h. Patient is n.p.o. and to request for speech consult tomorrow. 02/09/2020-latest serum creatinine is 2.8. On admit patient it is 16. Most likely secondary to severe dehydration. And is on LR until this morning fluids are changed to D5W at 75 cc/h because of hyponatremia. (2) Metabolic acidosis Is this a current diagnosis for this admission?: Yes Plan: * This patient has a combined non-anion gap and anion gap metabolic acidosis, likely owing to uremia in addition to high volume intravenous fluid resuscitation. * Diurese today. * 02/08/2020-patient admitted with non-anion gap, gap metabolic acidosis. Resolving. Bicarb is 16 today. * 02/09/2020-serum bicarb today is 20. Metabolic acidosis is improving. 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 (4) Hypernatremia Is this a current diagnosis for this admission?: Yes Plan: * LR at 60 mL/h. * 02/08/2020-patient is on LR 60 cc/h. Latest serum sodium is 160. Asymptomatic. Plan is to continue the present management at this time. To repeat the labs tomorrow. * 02/09/2020-serum sodium is 166.8 this morning started on D5W at 75 cc/h. To monitor the labs given to 6 hours no change in outpatient mental status. Patient is still aphasic with right-sided weakness. (5) Stage II pressure sore Qualifiers: Pressure injury location: buttock Laterality: right Qualified Code(s): L8 9.312 - Pressure ulcer of right buttock, stage 2 Is this a current diagnosis for this admission?: Yes Plan: Wound care consult (6) UTI (urinary tract infection) Qualifiers: Urinary tract infection type: acute cystitis Hematuria presence: without hematuria Qualified Code(s): N30.00 - Acute cystitis without hematuria Is this a current diagnosis for this admission?: Yes Plan: * UA: greater than 180 WBC, positive leukocyte esterase, negative nitrite * Start Rocephin. * Follow-up urine cultures. * 02/08/2020-urine culture is positive. Presently on IV Rocephin. Urine culture is growing gram-negative rods and E. coli. Blood culture positive for Staphylococcus species. Probably contamination. (7) Hyperkalemia Is this a current diagnosis for this admission?: Yes Plan: Resolved 02/10/2020 I will increase her D5W to 100 mL an hour. This should easily keep her within a safe rate of change for her serum sodium. The patient grew ESBL E. coli. She is now on meropenem. Staphylococcus organism in the blood culture is coagulase-negative and most likely a contaminant. No treatment required. The patient is stable. She is currently aphasic from a stroke approximately 3 weeks ago. She also has hemiparesis. I will ask physical therapy to assess. I discussed her swallow study with speech therapy. Very limited aspiration risk and so diet has been ordered. We will assess buttock lesion with the nurse tomorrow. Will place wound care consult ordered. Patient was undergoing Accu-Cheks while NPO. Now the diet has been ordered we will continue to monitor. Will DC Accu-Cheks if appropriate. Acute kidney injury most likely due to a combination of the infection and prerenal status. Continue to treat. BUN and creatinine slowly improving. Remains with excellent urine output. Continue to monitor intake and output Potassium is no longer elevated. In fact it is borderline low. Start potassium supplement. Monitor closely. 02/11/2020 Continue D5W but add potassium chloride. Continue to monitor electrolytes. BMP ordered every 12 hours. We will discontinue Accu-Cheks. These were ordered when the patient was n.p.o. She is getting dextrose in her fluids. This should make up for poor appetite. Acute kidney injury continues to improve. On meropenem for ESBL E. coli Mechanical soft diet ordered patient not participating particularly well. We will continue dextrose containing fluid. 02/12/2020 No new complaints. Hypernatremia-sodium is down to 150. Hypokalemia-potassium is 3.4 despite putting potassium chloride in the IV fluid. I will increase the rate of the fluid and recheck tomorrow. Appetite is still poor. Acute kidney injury-BUN and creatinine continue to improve. ESBL E. coli-continue meropenem The patient is actually stable and I will downgrade from IMCU to medical floor. 02/13/2020 Hypernatremia-serum sodium is now normal. Will decrease fluid rate to 100 mL an hour and monitor serum sodium. The goal will be to discontinue the D5W with potassium and implement potassium supplements. Hypokalemia-serum potassium is now 3.9. Once we decrease the rate of the D5W with potassium this may drop. We will need to order either IV or p.o. supplement. Acute kidney injury-GFR continues to improve and is now up to 40. We will continue to monitor both renal function as well as intake and output. ESBL E. coli-meropenem through 02/16/2020. I have added lactobacillus as the patient is still having diarrhea. - Time Time Spent with patient: 15-24 minutes Medications reviewed and adjusted accordingly: Yes Anticipated Discharge Disposition: Residential Facility Anticipated Discharge Timeframe: within 72 hours
[2020-02-13] MEDS: NORMAL SALINE INJ/PF 0.9% 10 ML SDV IV SCH ×2 (09:59→21:30)
[2020-02-13] MEDS: CHOLECALCIFEROL (D3) 1,000 UNIT (25 MCG) TABLET PO SCH (10:02)
[2020-02-13] MEDS: LACTOBACILLUS ACIDOPHILUS 250 MG TAB PO SCH ×3 (10:35→18:07)
[2020-02-13] MEDS: DEXTROSE 5%-WATER 1000 ML 1,000 ML with POTASSIUM CHLORIDE 20 MEQ IV PRN ×4 (10:44→17:51)
[2020-02-13] MEDS: MELATONIN 3 MG TABLET PO SCH (21:29)
[2020-02-13] MEDS: LATANOPROST 0.005% OPH SOLN 2.5 ML OP SCH (21:30)
[2020-02-14] MEDS: HEPARIN SOD (PORCINE) 5,000 UNIT/ML 1 ML VIAL SUBCUT SCH ×3 (05:29→22:28)
[2020-02-14] MEDS: MEROPENEM 500 MG in NORMAL SALINE 50 ML IV SCH ×2 (05:43→17:58)
[2020-02-14] MEDS: DEXTROSE 5%-WATER 1000 ML 1,000 ML with POTASSIUM CHLORIDE 20 MEQ IV PRN ×2 (11:03)
[2020-02-14] MEDS: CHOLECALCIFEROL (D3) 1,000 UNIT (25 MCG) TABLET PO SCH (11:03)
[2020-02-14] MEDS: NORMAL SALINE INJ/PF 0.9% 10 ML SDV IV SCH ×2 (11:03→22:34)
[2020-02-14] MEDS: LACTOBACILLUS ACIDOPHILUS 250 MG TAB PO SCH ×2 (11:04→18:00)
--- NOTE | 2020-02-14 14:04 | PDOC PROGRESS REPORT ---
Subjective Date:: 02/14/20 Subjective:: Patient had clear liquid on her gown. It did not look like typical emesis. There was no bile staining. Difficult to ascertain the etiology. No labs today to give veins at rest. Will order blood work for tomorrow. She has meropenem through 02/16/2020 and then should be able to return to long-term care on 02/17/2020 Reason For Visit: HYPOTENSION,SEVERE METABOLIC DERANGEMENT Physical Exam Vital Signs: Temp Pulse Resp BP Pulse Ox 98.5 F 90 17 170/90 H 100 02/14/20 12:00 02/14/20 12:00 02/14/20 12:00 02/14/20 12:00 02/14/20 12:00 Intake & Output 02/13/20 02/14/20 02/15/20 06:59 06:59 06:59 Intake Total 2050 1862 0 Output Total 1200 650 300 Balance 850 1212 -300 Weight 68.8 kg 68.8 kg General appearance: PRESENT: no acute distress, well-developed Head exam: PRESENT: atraumatic, normocephalic Ear exam: PRESENT: normal external ear exam. ABSENT: bleeding, drainage Respiratory exam: PRESENT: clear to auscultation carl, symmetrical, unlabored. ABSENT: rales, rhonchi, tachypnea, wheezes Cardiovascular exam: PRESENT: RRR, +S1, +S2. ABSENT: bradycardia, diastolic murmur, irregular rhythm, systolic murmur, tachycardia GI/Abdominal exam: PRESENT: normal bowel sounds, soft, tenderness - Small mid abdominal tenderness. Difficult to fully ascertain. Rectal exam: PRESENT: deferred Neurological exam: PRESENT: alert, awake, motor sensory deficit, aphasic Psychiatric exam: PRESENT: flat affect. ABSENT: agitated, anxious Skin exam: PRESENT: dry, normal color, warm. 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 Right maxillary sinus disease. No acute finding. EVIDENCE OF ACUTE STROKE: NO. Renal Ultrasound 02/05/20 20:16 IMPRESSION: No definite acute findings. Chest X-Ray 02/07/20 06:00 IMPRESSION: MILD CARDIOMEGALY AND VASCULAR CONGESTION. NO OTHER SIGNIFICANT FINDINGS. Abdomen/Pelvis CT 02/09/20 00:00 IMPRESSION: 1. 10 x 7 mm left adrenal myelolipoma (image 67 of series 601). 2. 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 3. Quintero catheter within the urinary bladder. 3. Severe atrophy of the left kidney. 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 Cerebrovascular disease type: cerebral infarction Hemiparesis laterality: unspecified Qualified Code(s): I69.359 - Hemiplegia and hemiparesis following cerebral infarction affecting unspecified side Is this a current diagnosis for this admission?: No (6) Stage II pressure sore Qualifiers: Pressure injury location: buttock Laterality: right Qualified Code(s): L89.312 - Pressure ulcer of right buttock, stage 2 Is this a current diagnosis for this admission?: Yes (7) Hyperkalemia Is this a current diagnosis for this admission?: Yes - Plan Summary Summary: (1) Acute kidney injury Is this a current diagnosis for this admission?: Yes Plan: * Nonoliguric, improving. * Monitor urine output. 02/08/2020-patient admitted with nonoliguric kidney failure. Creatinine is proving on daily basis. BUN is also improving. Plan is to closely monitor the labs on daily basis. Presently on Ringer lactate 60 cc/h. Patient is n.p.o. and to request for speech consult tomorrow. 02/09/2020-latest serum creatinine is 2.8. On admit patient it is 16. Most likely secondary to severe dehydration. And is on LR until this morning fluids are changed to D5W at 75 cc/h because of hyponatremia. (2) Metabolic acidosis Is this a current diagnosis for this admission?: Yes Plan: * This patient has a combined non-anion gap and anion gap metabolic acidosis, likely owing to uremia in addition to high volume intravenous fluid resuscitation. * Diurese today. * 02/08/2020-patient admitted with non-anion gap, gap metabolic acidosis. Resolving. Bicarb is 16 today. * 02/09/2020-serum bicarb today is 20. Metabolic acidosis is improving. 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 (4) Hypernatremia Is this a current diagnosis for this admission?: Yes Plan: * LR at 60 mL/h. * 02/08/2020-patient is on LR 60 cc/h. Latest serum sodium is 160. Asym ptomatic. Plan is to continue the present management at this time. To repeat the labs tomorrow. * 02/09/2020-serum sodium is 166.8 this morning started on D5W at 75 cc/h. To monitor the labs given to 6 hours no change in outpatient mental status. Patient is still aphasic with right-sided weakness. (5) Stage II pressure sore Qualifiers: Pressure injury location: buttock Laterality: right Qualified Code(s): L89.312 - Pressure ulcer of right buttock, stage 2 Is this a current diagnosis for this admission?: Yes Plan: Wound care consult (6) UTI (urinary tract infection) Qualifiers: Urinary tract infection type: acute cystitis Hematuria presence: without hematuria Qualified Code(s): N30.00 - Acute cystitis without hematuria Is this a current diagnosis for this admission?: Yes Plan: * UA: greater than 180 WBC, positive leukocyte esterase, negative nitrite * Start Rocephin. * Follow-up urine cultures. * 02/08/2020-urine culture is positive. Presently on IV Rocephin. Urine culture is growing gram-negative rods and E. coli. Blood culture positive for Staphylococcus species. Probably contamination. (7) Hyperkalemia Is this a current diagnosis for this admission?: Yes Plan: Resolved 02/10/2020 I will increase her D5W to 100 mL an hour. This should easily keep her within a safe rate of change for her serum sodium. The patient grew ESBL E. coli. She is now on meropenem. Staphylococcus organism in the blood culture is coagulase-negative and most likely a contaminant. No treatment required. The patient is stable. She is currently aphasic from a stroke approximately 3 weeks ago. She also has hemiparesis. I will ask physical therapy to assess. I discussed her swallow study with speech therapy. Very limited aspiration risk and so diet has been ordered. We will assess buttock lesion with the nurse tomorrow. Will place wound care consult ordered. Patient was undergoing Accu-Cheks while NPO. Now the diet has been ordered we will continue to monitor. Will DC Accu-Cheks if appropriate. Acute kidney injury most likely due to a combination of the infection and prerenal status. Continue to treat. BUN and creatinine slowly improving. Remains with excellent urine output. Continue to monitor intake and output Potassium is no longer elevated. In fact it is borderline low. Start potassium supplement. Monitor closely. 02/11/2020 Continue D5W but add potassium chloride. Continue to monitor electrolytes. BMP ordered every 12 hours. We will discontinue Accu-Cheks. These were ordered when the patient was n.p.o. She is getting dextrose in her fluids. This should make up for poor appetite. Acute kidney injury continues to improve. On meropenem for ESBL E. coli Mechanical soft diet ordered patient not participating particularly well. We will continue dextrose containing fluid. 02/12/2020 No new complaints. Hypernatremia-sodium is down to 150. Hypokalemia-potassium is 3.4 despite putting potassium chloride in the IV fluid. I will increase the rate of the fluid and recheck tomorrow. Appetite is still poor. Acute kidney injury-BUN and creatinine continue to improve. ESBL E. coli-continue meropenem The patient is actually stable and I will downgrade from IMCU to medical floor. 02/13/2020 Hypernatremia-serum sodium is now normal. Will decrease fluid rate to 100 mL an hour and monitor serum sodium. The goal will be to discontinue the D5W with potassium and implement potassium supplements. Hypokalemia-serum potassium is now 3.9. Once we decrease the rate of the D5W with potassium this may drop. We will need to order either IV or p.o. supplement. Acute kidney injury-GFR continues to improve and is now up to 40. We will continue to monitor both renal function as well as intake and output. ESBL E. coli-meropenem through 02/16/2020. I have added lactobacillus as the patient is still having diarrhea. 02/14/2020 ESBL E. coli urinary tract infection-meropenem through 02/16/2020 and then return to long-term care Hyponatremia-no labs today. Recheck tomorrow. Hypokalemia-potassium corrected yesterday. Recheck labs tomorrow. Acute kidney injury-continuing IV fluid. Kidney function should continue to improve. History of stroke-the patient actually had the initial stroke several years ago and not several weeks ago. She will return to the long-term care facility. Anticipate discharge after IV antibiotics as outlined above. - Time Time Spent with patient: Less than 15 minutes Medications reviewed and adjusted accordingly: Yes Anticipated Discharge Disposition: [facility] Anticipated Discharge Timeframe: within 72 hours
[2020-02-14] MEDS: MELATONIN 3 MG TABLET PO SCH (22:33)
[2020-02-14] MEDS: LATANOPROST 0.005% OPH SOLN 2.5 ML OP SCH (22:34)
[2020-02-15] MEDS: MEROPENEM 500 MG in NORMAL SALINE 50 ML IV SCH ×2 (06:11→18:01)
[2020-02-15] MEDS: HEPARIN SOD (PORCINE) 5,000 UNIT/ML 1 ML VIAL SUBCUT SCH ×3 (06:11→21:59)
[2020-02-15 07:03] LABS: HEMATOCRIT 29.5 % (36.0-47.0); HEMOGLOBIN 10.2 g/dL (12.0-15.5); MEAN CORPUSCULAR HEMOGLOBIN 31.1 pg (27.0-33.4); MEAN CORPUSCULAR HGB CONC 34.4 g/dL (32.0-36.0); MEAN CORPUSCULAR VOLUME 90 fl (80-97); PLATELET COUNT 190 10^3/uL (150-450); RED BLOOD COUNT 3.27 10^6/uL (3.72-5.28); RED CELL DISTRIBUTION WIDTH 16.2 % (11.5-14.0); WHITE BLOOD COUNT 14.4 10^3/uL (4.0-10.5)
[2020-02-15 07:29] LABS: ALBUMIN 3.2 g/dL (3.5-5.0); ALKALINE PHOSPHATASE 126 U/L (38-126); ANION GAP 11 (5-19); ASPARTATE AMINO TRANSFERASE 34 U/L (14-36); BILIRUBIN,DIRECT 0.2 mg/dL (0.0-0.4); BILIRUBIN,TOTAL 0.7 mg/dL (0.2-1.3); BLOOD UREA NITROGEN 12 mg/dL (7-20); CALCIUM 8.3 mg/dL (8.4-10.2); CARBON DIOXIDE 16 mmol/L (22-30); CHLORIDE 112 mmol/L (98-107); GLUCOSE 88 mg/dL (75-110); POTASSIUM 3.5 mmol/L (3.6-5.0); TOTAL PROTEIN 5.7 g/dL (6.3-8.2)
[2020-02-15] MEDS: MAGNESIUM SULFATE/D5W 1 GM/100 ML RTUPB IV SCH ×3 (10:25→12:51)
[2020-02-15] MEDS: NORMAL SALINE INJ/PF 0.9% 10 ML SDV IV SCH ×2 (10:25→21:59)
[2020-02-15] MEDS: LACTOBACILLUS ACIDOPHILUS 250 MG TAB PO SCH ×3 (10:26→18:02)
[2020-02-15] MEDS: CHOLECALCIFEROL (D3) 1,000 UNIT (25 MCG) TABLET PO SCH (10:26)
--- NOTE | 2020-02-15 14:00 | PDOC PROGRESS REPORT ---
Subjective Date:: 02/15/20 Subjective:: Resting in bed. Opens her eyes to verbal stimulus. Does not appear to be uncom fortable. Reason For Visit: HYPOTENSION,SEVERE METABOLIC DERANGEMENT Physical Exam Vital Signs: Temp Pulse Resp BP Pulse Ox 98.9 F 96 16 167/85 H 98 02/15/20 08:00 02/15/20 08:00 02/15/20 08:00 02/15/20 08:00 02/15/20 08:00 Intake & Output 02/14/20 02/15/20 02/16/20 06:59 06:59 06:59 Intake Total 1862 1050 250 Output Total 650 1200 Balance 1212 -150 250 Weight 68.8 kg 68.7 kg General appearance: PRESENT: no acute distress, well-developed Head exam: PRESENT: atraumatic, normocephalic Respiratory exam: PRESENT: clear to auscultation carl, symmetrical, unlabored. ABSENT: prolonged expiratory phas, rales, rhonchi, tachypnea, wheezes Cardiovascular exam: PRESENT: RRR, +S1, +S2. ABSENT: bradycardia, diastolic murmur, irregular rhythm, systolic murmur, tachycardia GI/Abdominal exam: PRESENT: normal bowel sounds, soft. ABSENT: tenderness Rectal exam: PRESENT: deferred Musculoskeletal exam: ABSENT: ambulatory Neurological exam: PRESENT: alert, awake, aphasic Psychiatric exam: PRESENT: flat affect. ABSENT: agitated, anxious Focused psych exam: ABSENT: delusional, paranoid, restlessness Results Laboratory Results: 02/15/20 06:51 02/15/20 06:51 02/15/20 02/15/20 06:51 06:51 WBC 14.4 H RBC 3.27 L Hgb 10.2 L Hct 29.5 L MCV 90 MCH 31.1 MCHC 34.4 RDW 16.2 H Plt Count 190 Sodium 139.0 Potassium 3.5 L Chloride 112 H Carbon Dioxide 16 L Anion Gap 11 BUN 12 Creatinine 1.26 H Est GFR ( Amer) 52 L Glucose 88 Calcium 8.3 L Magnesium 1.1 L* Total Bilirubin 0.7 AST 34 Alkaline Phosphatase 126 Total Protein 5.7 L Albumin 3.2 L 02/05/20 02/06/20 02/07/20 17:10 06:40 04:24 Troponin I 0.065 NT-Pro-B Natriuret Pep 2900 H 7740 H 02/08/20 04:35 Troponin I NT-Pro-B Natriuret Pep 63611 H Impressions: Head CT 02/05/20 18:05 IMPRESSION: 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 Right maxillary sinus disease. No acute finding. EVIDENCE OF ACUTE STROKE: NO. Renal Ultrasound 02/05/20 20:16 IMPRESSION: No definite acute findings. Chest X-Ray 02/07/20 06:00 IMPRESSION: MILD CARDIOMEGALY AND VASCULAR CONGESTION. NO OTHER SIGNIFICANT FINDINGS. Abdomen/Pelvis CT 02/09/20 00:00 IMPRESSION: 1. 10 x 7 mm left adrenal myelolipoma (image 67 of series 601). 2. 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 3. Quintero catheter within the urinary bladder. 3. Severe atrophy of the left kidney. 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 Cerebrovascular disease type: cerebral infarction Hemiparesis laterality: unsp ecified Qualified Code(s): I69.359 - Hemiplegia and hemiparesis following cerebral infarction affecting unspecified side Is this a current diagnosis for this admission?: No (6) Stage II pressure sore Qualifiers: Pressure injury location: buttock Laterality: right Qualified Code(s): L89.312 - Pressure ulcer of right buttock, stage 2 Is this a current diagnosis for this admission?: Yes (7) Hyperkalemia Is this a current diagnosis for this admission?: Yes - Plan Summary Summary: (1) Acute kidney injury Is this a current diagnosis for this admission?: Yes Plan: * Nonoliguric, improving. * Monitor urine output. 02/08/2020-patient admitted with nonoliguric kidney failure. Creatinine is proving on daily basis. BUN is also improving. Plan is to closely monitor the labs on daily basis. Presently on Ringer lactate 60 cc/h. Patient is n.p.o. and to request for speech consult tomorrow. 02/09/2020-latest serum creatinine is 2.8. On admit patient it is 16. Most likely secondary to severe dehydration. And is on LR until this morning fluids are changed to D5W at 75 cc/h because of hyponatremia. (2) Metabolic acidosis Is this a current diagnosis for this admission?: Yes Plan: * This patient has a combined non-anion gap and anion gap metabolic acidosis, likely owing to uremia in addition to high volume intravenous fluid resuscitation. * Diurese today. * 02/08/2020-patient admitted with non-anion gap, gap metabolic acidosis. Resolving. Bicarb is 16 today. * 02/09/2020-serum bicarb today is 20. Metabolic acidosis is improving. 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 (4) Hypernatremia Is this a current diagnosis for this admission?: Yes Plan: * LR at 60 mL/h. * 02/08/2020-patient is on LR 60 cc/h. Latest serum sodium is 160. Asymptomatic. Plan is to continue the present management at this time. To repeat the labs tomorrow. * 02/09/2020-serum sodium is 166.8 this morning started on D5W at 75 cc/h. To monitor the labs given to 6 hours no change in outpatient mental status. Patient is still aphasic with right-sided weakness. (5) Stage II pressure sore Qualifiers: Pressure injury location: buttock Laterality: right Qualified Code(s): L89.312 - Pressure ulcer of right buttock, stage 2 Is this a current diagnosis for this admission?: Yes Plan: Wound care consult (6) UTI (urinary tract infection) Qualifiers: Urinary tract infection type: acute cystitis Hematuria presence: without hematuria Qualified Code(s): N30.00 - Acute cystitis without hematuria Is this a current diagnosis for this admission?: Yes Plan: * UA: greater than 180 WBC, positive leukocyte esterase, negative nitrite * Start Rocephin. * Follow-up urine cultures. * 02/08/2020-urine culture is positive. Presently on IV Rocephin. Urine culture is growing gram-negative rods and E. coli. Blood culture positive for Staphylococcus species. Probably contamination. (7) Hyperkalemia Is this a current diagnosis for this admission?: Yes Plan: Resolved 02/10/2020 I will increase her D5W to 100 mL an hour. This should easily keep her within a safe rate of change for her serum sodium. The patient grew ESBL E. coli. She is now on meropenem. Staphylococcus organism in the blood culture is coagulase-negative and most likely a contaminant. No treatment required. The patient is stable. She is currently aphasic from a stroke approximately 3 weeks ago. She also has hemiparesis. I will ask physical therapy to assess. I discussed her swallow study with speech therapy. Very limited aspiration risk and so diet has been ordered. We will assess buttock lesion with the nurse tomorrow. Will place wound care consult ordered. Patient was undergoing Accu-Cheks while NPO. Now the diet has been ordered we will continue to monitor. Will DC Accu-Cheks if appropriate. Acute kidney injury most likely due to a combination of the infection and prerenal status. Continue to treat. BUN and creatinine slowly improving. Remains with excellent urine output. Continue to monitor intake and output Potassium is no longer elevated. In fact it is borderline low. Start potassium supplement. Monitor closely. 02/11/2020 Continue D5W but add potassium chloride. Continue to monitor electrolytes. BMP ordered every 12 hours. We will discontinue Accu-Cheks. These were ordered when the patient was n.p.o. She is getting dextrose in her fluids. This should make up for poor appetite. Acute kidney injury continues to improve. On meropenem for ESBL E. coli Mechanical soft diet ordered patient not participating particularly well. We will continue dextrose containing fluid. 02/12/2020 No new complaints. Hypernatremia-sodium is down to 150. Hypokalemia-potassium is 3.4 despite putting potassium chloride in the IV fluid. I will increase the rate of the fluid and recheck tomorrow. Appetite is still poor. Acute kidney injury-BUN and creatinine continue to improve. ESBL E. coli-continue meropenem The patient is actually stable and I will downgrade from IMCU to medical floor. 02/13/2020 Hypernatremia-serum sodium is now normal. Will decrease fluid rate to 100 mL an hour and monitor serum sodium. The goal will be to discontinue the D5W with potassium and implement potassium supplements. Hypokalemia-serum potassium is now 3.9. Once we decrease the rate of the D5W with potassium this may drop. We will need to order either IV or p.o. supplement. Acute kidney injury-GFR continues to improve and is now up to 40. We will continue to monitor both renal function as well as intake and output. ESBL E. coli-meropenem through 02/16/2020. I have added lactobacillus as the patient is still having diarrhea. 02/14/2020 ESBL E. coli urinary tract infection-meropenem through 02/16/2020 and then return to long-term care Hyponatremia-no labs today. Recheck tomorrow. Hypokalemia-potassium corrected yesterday. Recheck labs tomorrow. Acute kidney injury-continuing IV fluid. Kidney function should continue to improve. History of stroke-the patient actually had the initial stroke several years ago and not several weeks ago. She will return to the long-term care facility. Anticipate discharge after IV antibiotics as outlined above. 02/15/2020 ESBL E. coli-on IV meropenem. February 16, 2020 and then returns to long-term care Hyponatremia-serum sodium normal and stable Hypokalemia-potassium just under the lower limit normal. Will add an oral dose. Hypomagnesemia-serum magnesium was only 1.1. 3 g IV has been ordered. Acute kidney injury-GFR is now over 50 and continues to improve. No change in treatment plan. Chronic significant debility from stroke-supportive care. No acute intervention. - Time Time Spent with patient: Less than 15 minutes Medications reviewed and adjusted accordingly: Yes Anticipated Discharge Disposition: [facility] Anticipated Discharge Timeframe: within 72 hours
[2020-02-15] MEDS: POTASSIUM CHLORIDE 20 MEQ PACKET PO SCH (15:29)
[2020-02-15] MEDS: DEXTROSE 5%-WATER 1000 ML 1,000 ML with POTASSIUM CHLORIDE 20 MEQ IV PRN ×2 (18:02)
[2020-02-15] MEDS: MELATONIN 3 MG TABLET PO SCH (21:59)
[2020-02-15] MEDS: LATANOPROST 0.005% OPH SOLN 2.5 ML OP SCH (22:01)
--- NOTE | 2020-02-16 08:21 | RADIOLOGY REPORT (SQ) ---
EXAM DESCRIPTION: CHEST SINGLE VIEW IMAGES COMPLETED DATE/TIME: 02/16/2020 8:13 am REASON FOR STUDY: patient pulled picc line out COMPARISON: 02/07/2020 EXAM PARAMETERS: NUMBER OF VIEWS: One view. TECHNIQUE: Single frontal radiographic view of the chest acquired. RADIATION DOSE: NA LIMITATIONS: None. FINDINGS: LUNGS AND PLEURA: Improved aeration with mild residual lingular linear opacities, likely a telectasis. No significant effusion. No pneumothorax. MEDIASTINUM AND HILAR STRUCTURES: No masses. Contour normal. HEART AND VASCULAR STRUCTURES: Stable heart size. Decreased central vascular prominence. BONES: No acute findings. HARDWARE: Left-sided arm PICC has been removed. OTHER: No other significant finding. IMPRESSION: Left arm PICC has been removed. Improved aeration with minimal left basilar opacities, likely atelectasis. TECHNICAL DOCUMENTATION: JOB ID: [id number] 2010 [employer]- All Rights Reserved Reading location - IP/workstation name: [email or web address]
[2020-02-16 09:22] LABS: HEMATOCRIT 29.7 % (36.0-47.0); HEMOGLOBIN 10.2 g/dL (12.0-15.5); MEAN CORPUSCULAR HGB CONC 34.2 g/dL (32.0-36.0); MEAN CORPUSCULAR VOLUME 91 fl (80-97); PLATELET COUNT 226 10^3/uL (150-450); RED BLOOD COUNT 3.28 10^6/uL (3.72-5.28); RED CELL DISTRIBUTION WIDTH 16.7 % (11.5-14.0); WHITE BLOOD COUNT 12.7 10^3/uL (4.0-10.5)
[2020-02-16 09:45] LABS: ANION GAP 12 (5-19); BLOOD UREA NITROGEN 9 mg/dL (7-20); CALCIUM 8.6 mg/dL (8.4-10.2); CARBON DIOXIDE 14 mmol/L (22-30); CHLORIDE 111 mmol/L (98-107); GLUCOSE 93 mg/dL (75-110); POTASSIUM 3.7 mmol/L (3.6-5.0)
[2020-02-16] MEDS: CHOLECALCIFEROL (D3) 1,000 UNIT (25 MCG) TABLET PO SCH (10:29)
[2020-02-16] MEDS: LACTOBACILLUS ACIDOPHILUS 250 MG TAB PO SCH ×2 (10:30→18:35)
[2020-02-16] MEDS: HEPARIN SOD (PORCINE) 5,000 UNIT/ML 1 ML VIAL SUBCUT SCH ×3 (10:39→22:36)
[2020-02-16] MEDS: NORMAL SALINE INJ/PF 0.9% 10 ML SDV IV SCH ×2 (10:40→22:26)
[2020-02-16] MEDS: MEROPENEM 500 MG in NORMAL SALINE 50 ML IV SCH (10:40)
[2020-02-16] MEDS: LISINOPRIL 10 MG TABLET PO SCH (10:42)
[2020-02-16] MEDS: POTASSIUM CHLORIDE 20 MEQ PACKET PO SCH ×2 (10:43→10:44)
--- NOTE | 2020-02-16 15:08 | PDOC PROGRESS REPORT ---
Subjective Date:: 02/16/20 Subjective:: Patient pulled her midline out earlier. When the staff attempted to place an IV Reason For Visit: HYPOTENSION,SEVERE METABOLIC DERANGEMENT Physical Exam Vital Signs: Temp Pulse Resp BP Pulse Ox 97.8 F 68 18 110/66 98 02/16/20 10:53 02/16/20 10:53 02/16/20 10:53 02/16/20 10:53 02/16/20 10:53 Intake & Output 02/15/20 02/16/20 02/17/20 06:59 06:59 06:59 Intake Total 1050 400 Output Total 1200 650 Balance -150 -250 Weight 68.7 kg 68.5 kg General appearance: PRESENT: no acute distress Head exam: PRESENT: atraumatic, normocephalic Respiratory exam: PRESENT: clear to auscultation carl - Anteriorly, symmetrical, unlabored. ABSENT: rales, rhonchi, tachypnea, wheezes Cardiovascular exam: PRESENT: RRR, +S1, +S2. ABSENT: bradycardia, diastolic murmur, irregular rhythm, systolic murmur, tachycardia GI/Abdominal exam: PRESENT: normal bowel sounds, soft. ABSENT: distended, tenderness Neurological exam: PRESENT: alert, awake, aphasic, other - Unable to assess Psychiatric exam: ABSENT: agitated - Not agitated at this encounter, anxious Results Laboratory Results: 02/16/20 09:10 02/16/20 09:10 02/16/20 02/16/20 09:10 09:10 WBC 12.7 H RBC 3.28 L Hgb 10.2 L Hct 29.7 L MCV 91 MCH 31.0 MCHC 34.2 RDW 16.7 H Plt Count 226 Sodium 136.8 L Potassium 3.7 Chloride 111 H Carbon Dioxide 14 L Anion Gap 12 BUN 9 Creatinine 1.06 Est GFR ( Amer) > 60 Glucose 93 Calcium 8.6 Magnesium 2.1 02/05/20 02/06/20 02/07/20 17:10 06:40 04:24 Troponin I 0.065 NT-Pro-B Natriuret Pep 2900 H 7740 H 02/08/20 04:35 Troponin I NT-Pro-B Natriuret Pep 88440 H Impressions: Head CT 02/05/20 18:05 IMPRESSION: 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 Right maxillary sinus disease. No acute finding. EVIDENCE OF ACUTE STROKE: NO. Renal Ultrasound 02/05/20 20:16 IMPRESSION: No definite acute findings. Abdomen/Pelvis CT 02/09/20 00:00 IMPRESSION: 1. 10 x 7 mm left adrenal myelolipoma (image 67 of series 601). 2. 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 3. Quintero catheter within the urinary bladder. 3. Severe atrophy of the left kidney. Chest X-Ray 02/16/20 07:55 IMPRESSION: Left arm PICC has been removed. Improved aeration with minimal left basilar opacities, likely atelectasis. 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 Cerebrova scular disease type: cerebral infarction Hemiparesis laterality: unspecified Qualified Code(s): I69.359 - Hemiplegia and hemiparesis following cerebral infarction affecting unspecified side Is this a current diagnosis for this admission?: No (6) Stage II pressure sore Qualifiers: Pressure injury location: buttock Laterality: right Qualified Code(s): L89.312 - Pressure ulcer of right buttock, stage 2 Is this a current diagnosis for this admission?: Yes (7) Hyperkalemia Is this a current diagnosis for this admission?: Yes - Plan Summary Summary: (1) Acute kidney injury Is this a current diagnosis for this admission?: Yes Plan: * Nonoliguric, improving. * Monitor urine output. 02/08/2020-patient admitted with nonoliguric kidney failure. Creatinine is proving on daily basis. BUN is also improving. Plan is to closely monitor the labs on daily basis. Presently on Ringer lactate 60 cc/h. Patient is n.p.o. and to request for speech consult tomorrow. 02/09/2020-latest serum creatinine is 2.8. On admit patient it is 16. Most li sharron secondary to severe dehydration. And is on LR until this morning fluids are changed to D5W at 75 cc/h because of hyponatremia. (2) Metabolic acidosis Is this a current diagnosis for this admission?: Yes Plan: * This patient has a combined non-anion gap and anion gap metabolic acidosis, likely owing to uremia in addition to high volume intravenous fluid resuscitation. * Diurese today. * 02/08/2020-patient admitted with non-anion gap, gap metabolic acidosis. Resolving. Bicarb is 16 today. * 02/09/2020-serum bicarb today is 20. Metabolic acidosis is improving. 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 (4) Hypernatremia Is this a current diagnosis for this admission?: Yes Plan: * LR at 60 mL/h. * 02/08/2020-patient is on LR 60 cc/h. Latest serum sodium is 160. Asymptomatic. Plan is to continue the present management at this time. To repeat the labs tomorrow. * 02/09/2020-serum sodium is 166.8 this morning started on D5W at 75 cc/h. To monitor the labs given to 6 hours no change in outpatient mental status. Patient is still aphasic with right-sided weakness. (5) Stage II pressure sore Qualifiers: Pressure injury location: buttock Laterality: right Qualified Code(s): L89.312 - Pressure ulcer of right buttock, stage 2 Is this a current diagnosis for this admission?: Yes Plan: Wound care consult (6) UTI (urinary tract infection) Qualifiers: Urinary tract infection type: acute cystitis Hematuria presence: without hematuria Qualified Code(s): N30.00 - Acute cystitis without hematuria Is this a current diagnosis for this admission?: Yes Plan: * UA: greater than 180 WBC, positive leukocyte esterase, negative nitrite * Start Rocephin. * Follow-up urine cultures. * 02/08/2020-urine culture is positive. Presently on IV Rocephin. Urine culture is growing gram-negative rods and E. coli. Blood culture positive for Staphylococcus species. Probably contamination. (7) Hyperkalemia Is this a current diagnosis for this admission?: Yes Plan: Resolved 02/10/2020 I will increase her D5W to 100 mL an hour. This should easily keep her within a safe rate of change for her serum sodium. The patient grew ESBL E. coli. She is now on meropenem. Staphylococcus organism in the blood culture is coagulase-negative and most likely a contaminant. No treatment required. The patient is stable. She is currently aphasic from a stroke approximately 3 weeks ago. She also has hemiparesis. I will ask physical therapy to assess. I discussed her swallow study with speech therapy. Very limited aspiration risk and so diet has been ordered. We will assess buttock lesion with the nurse tomorrow. Will place wound care consult ordered. Patient was undergoing Accu-Cheks while NPO. Now the diet has been ordered we will continue to monitor. Will DC Accu-Cheks if appropriate. Acute kidney injury most likely due to a combination of the infection and prerenal status. Continue to treat. BUN and creatinine slowly improving. Remains with excellent urine output. Continue to monitor intake and output Potassium is no longer elevated. In fact it is borderline low. Start potassium supplement. Monitor closely. 02/11/2020 Continue D5W but add potassium chloride. Continue to monitor electrolytes. BMP ordered every 12 hours. We will discontinue Accu-Cheks. These were ordered when the patient was n.p.o. She is getting dextrose in her fluids. This should make up for poor appetite. Acute kidney injury continues to improve. On meropenem for ESBL E. coli Mechanical soft diet ordered patient not participating particularly well. We will continue dextrose containing fluid. 02/12/2020 No new complaints. Hypernatremia-sodium is down to 150. Hypokalemia-potassium is 3.4 despite putting potassium chloride in the IV fluid. I will increase the rate of the fluid and recheck tomorrow. Appetite is still poor. Acute kidney injury-BUN and creatinine continue to improve. ESBL E. coli-continue meropenem The patient is actually stable and I will downgrade from IMCU to medical floor. 02/13/2020 Hypernatremia-serum sodium is now normal. Will decrease fluid rate to 100 mL an hour and monitor serum sodium. The goal will be to discontinue the D5W with potassium and implement potassium supplements. Hypokalemia-serum potassium is now 3.9. Once we decrease the rate of the D5W with potassium this may drop. We will need to order either IV or p.o. supplement. Acute kidney injury-GFR continues to improve and is now up to 40. We will continue to monitor both renal function as well as intake and output. ESBL E. coli-meropenem through 02/16/2020. I have added lactobacillus as the patient is still having diarrhea. 02/14/2020 ESBL E. coli urinary tract infection-meropenem through 02/16/2020 and then return to long-term care Hyponatremia-no labs today. Recheck tomorrow. Hypokalemia-potassium corrected yesterday. Recheck labs tomorrow. Acute kidney injury-continuing IV fluid. Kidney function should continue to improve. History of stroke-the patient actually had the initial stroke several years ago and not several weeks ago. She will return to the long-term care facility. Anticipate discharge after IV antibiotics as outlined above. 02/15/2020 ESBL E. coli-on IV meropenem. February 16, 2020 and then returns to long-term care Hyponatremia-serum sodium normal and stable Hypokalemia-potassium just under the lower limit normal. Will add an oral dose. Hypomagnesemia-serum magnesium was only 1.1. 3 g IV has been ordered. Acute kidney injury-GFR is now over 50 and continues to improve. No change in treatment plan. Chronic significant debility from stroke-supportive care. No acute intervention. 02/16/2020 The patient pulled out her midline. She hit the nurse when she attempted to put a peripheral IV in. The bacteria are sensitive to cefoxitin. Cefoxitin could be administered intramuscularly. I have ordered the remaining dose of antibiotics with intramuscular cefoxitin. This will complete her therapy and she should be able to return to her long-term care facility tomorrow. Hyponatremia-serum sodium get just below the lower limit normal this is not clinically significant Hypokalemia-potassium currently in normal range Hypomagnesemia-with the intravenous magnesium she is back in the normal range. Acute kidney injury-BUN and creatinine are now normal. - Time Time Spent with patient: Less than 15 minutes Medications reviewed and adjusted accordingly: Yes Anticipated Discharge Disposition: Residential Care Facility Anticipated Discharge Timeframe: within 24 hours
[2020-02-16] MEDS: CEFOXITIN INJ 2 GM VIAL IM SCH (18:42)
[2020-02-16] MEDS: MELATONIN 3 MG TABLET PO SCH (22:36)
[2020-02-16] MEDS: LATANOPROST 0.005% OPH SOLN 2.5 ML OP SCH (22:37)
[2020-02-17] MEDS: CEFOXITIN INJ 2 GM VIAL IM SCH ×2 (01:26→06:57)
[2020-02-17] MEDS: HEPARIN SOD (PORCINE) 5,000 UNIT/ML 1 ML VIAL SUBCUT SCH ×3 (06:58→23:15)
[2020-02-17] MEDS: NORMAL SALINE INJ/PF 0.9% 10 ML SDV IV SCH ×2 (10:37→22:01)
[2020-02-17] MEDS: LACTOBACILLUS ACIDOPHILUS 250 MG TAB PO SCH ×2 (10:37→18:12)
[2020-02-17] MEDS: POTASSIUM CHLORIDE 20 MEQ PACKET PO SCH (10:38)
[2020-02-17] MEDS: CHOLECALCIFEROL (D3) 1,000 UNIT (25 MCG) TABLET PO SCH (10:38)
[2020-02-17] MEDS: LISINOPRIL 10 MG TABLET PO SCH (10:38)
[2020-02-17 11:02] LABS: ABSOLUTE BASOPHILS # (AUTO) 0.1 10^3/uL (0.0-0.2); ABSOLUTE EOSINOPHILS # (AUTO) 0.5 10^3/uL (0.0-0.6); ABSOLUTE LYMPHOCYTES (AUTO) 1.8 10^3/uL (0.5-4.7); ABSOLUTE MONOCYTES (AUTO) 1.1 10^3/uL (0.1-1.4); ABSOLUTE NEUT (AUTO) 6.9 10^3/uL (1.7-8.2); BASOPHILS % (AUTO) 0.9 % (0-2); EOSINOPHILS % (AUTO) 4.5 % (0-6); HEMATOCRIT 32.1 % (36.0-47.0); HEMOGLOBIN 11.2 g/dL (12.0-15.5); LYMPHOCYTES % (AUTO) 17.3 % (13-45); MEAN CORPUSCULAR HEMOGLOBIN 31.5 pg (27.0-33.4); MEAN CORPUSCULAR VOLUME 90 fl (80-97); MONOCYTES % (AUTO) 10.8 % (3-13); PLATELET COUNT 266 10^3/uL (150-450); RED BLOOD COUNT 3.56 10^6/uL (3.72-5.28); RED CELL DISTRIBUTION WIDTH 16.7 % (11.5-14.0); SEGMENTED NEUTROPHILS % (AUTO) 66.5 % (42-78); TOTAL CELLS COUNTED % (AUTO) 100 %; WHITE BLOOD COUNT 10.4 10^3/uL (4.0-10.5)
[2020-02-17 11:19] LABS: ALBUMIN 3.5 g/dL (3.5-5.0); ALKALINE PHOSPHATASE 151 U/L (38-126); ANION GAP 12 (5-19); ASPARTATE AMINO TRANSFERASE 27 U/L (14-36); BILIRUBIN,DIRECT 0.2 mg/dL (0.0-0.4); BILIRUBIN,TOTAL 0.7 mg/dL (0.2-1.3); BLOOD UREA NITROGEN 11 mg/dL (7-20); CALCIUM 9.2 mg/dL (8.4-10.2); CARBON DIOXIDE 13 mmol/L (22-30); CHLORIDE 115 mmol/L (98-107); GLUCOSE 87 mg/dL (75-110); POTASSIUM 4.1 mmol/L (3.6-5.0); TOTAL PROTEIN 6.6 g/dL (6.3-8.2)
--- NOTE | 2020-02-17 14:19 | PDOC PROGRESS REPORT ---
Subjective Date:: 02/17/20 Subjective:: Patient does not talk much. She does not want blood draws earlier but when I of fered the possibility of her going home she had for blood draws. Bicarb level continues to drop. I discussed with nurse and patient had 1 loose bowel movement yesterday but otherwise has not had any frequent diarrhea. Reason For Visit: HYPOTENSION,SEVERE METABOLIC DERANGEMENT Physical Exam Vital Signs: Temp Pulse Resp BP Pulse Ox 97.6 F 95 17 149/79 H 98 02/17/20 00:07 02/17/20 08:17 02/17/20 00:07 02/17/20 08:17 02/17/20 08:17 Intake & Output 02/16/20 02/17/20 02/18/20 06:59 06:59 06:59 Intake Total 400 Output Total 650 500 Balance -250 -500 Weight 68.5 kg 56.6 kg General appearance: PRESENT: no acute distress, cooperative Neck exam: ABSENT: JVD Respiratory exam: PRESENT: clear to auscultation carl, unlabored. ABSENT: tachypnea, wheezes Cardiovascular exam: PRESENT: RRR, +S1, +S2. ABSENT: tachycardia GI/Abdominal exam: PRESENT: soft. ABSENT: rebound, rigid, tenderness Neurological exam: PRESENT: alert, awake, aphasic, other - only says very few words sporadically Psychiatric exam: ABSENT: agitated, anxious Skin exam: ABSENT: jaundice Results Laboratory Results: 02/17/20 10:35 02/17/20 10:35 02/17/20 02/17/20 10:35 10:35 WBC 10.4 RBC 3.56 L Hgb 11.2 L Hct 32.1 L MCV 90 MCH 31.5 MCHC 35.0 RDW 16.7 H Plt Count 266 Seg Neutrophils % 66.5 Sodium 139.6 Potassium 4.1 Chloride 115 H Carbon Dioxide 13 L Anion Gap 12 BUN 11 Creatinine 1.17 Est GFR ( Amer) 56 L Glucose 87 Calcium 9.2 Total Bilirubin 0.7 AST 27 Alkaline Phosphatase 151 H Total Protein 6.6 Albumin 3.5 02/05/20 02/06/20 02/07/20 17:10 06:40 04:24 Troponin I 0.065 NT-Pro-B Natriuret Pep 2900 H 7740 H 02/08/20 04:35 Troponin I NT-Pro-B Natriuret Pep 84564 H Impressions: Head CT 02/05/20 18:05 IMPRESSION: 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 Right maxillary sinus disease. No acute finding. EVIDENCE OF ACUTE STROKE: NO. Renal Ultrasound 02/05/20 20:16 IMPRESSION: No definite acute findings. Abdomen/Pelvis CT 02/09/20 00:00 IMPRESSION: 1. 10 x 7 mm left adrenal myelolipoma (image 67 of series 601). 2. 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 3. Quintero catheter within the urinary bladder. 3. Severe atrophy of the left kidney. Chest X-Ray 02/16/20 07:55 IMPRESSION: Left arm PICC has been removed. Improved aeration with minimal left basilar opacities, likely atelectasis. Assessment and Plan - Diagnosis (1) Metabolic acidosis Is this a current diagnosis for this admission?: Yes (2) Acute kidney injury Is this a current diagnosis for this admission?: Yes (3) Hypernatremia Is this a current diagnosis for this admission?: Yes (4) Stage II pressure sore Qualifiers: Pressure injury location: buttock Laterality: right Qualified Code(s): L89.312 - Pressure ulcer of right buttock, stage 2 Is this a current diagnosis for this admission?: Yes (5) UTI (urinary tract infection) Qualifiers: Urinary tract infection type: acute cystitis Hematuria presence: without hematuria Qualified Code(s): N30.00 - Acute cystitis without hematuria Is this a current diagnosis for this admission?: Yes - Plan Summary Summary: 02/10/2020 I will increase her D5W to 100 mL an hour. This should easily keep her within a safe rate of change for her serum sodium. The patient grew ESBL E. coli. She is now on meropenem. Staphylococcus organism in the blood culture is coagulase-negative and most likely a contaminant. No treatment required. The patient is stable. She is currently aphasic from a stroke approximately 3 weeks ago. She also has hemiparesis. I will ask physical therapy to assess. I discussed her swallow study with speech therapy. Very limited aspiration risk and so diet has been ordered. We will assess buttock lesion with the nurse tomorrow. Will place wound care consult ordered. Patient was undergoing Accu-Cheks while NPO. Now the diet has been ordered we will continue to monitor. Will DC Accu-Cheks if appropriate. Acute kidney injury most likely due to a combination of the infection and prerenal status. Continue to treat. BUN and creatinine slowly improving. Remains with excellent urine output. Continue to monitor intake and output Potassium is no longer elevated. In fact it is borderline low. Start potassium supplement. Monitor closely. 02/11/2020 Continue D5W but add potassium chloride. Continue to monitor electrolytes. BMP ordered every 12 hours. We will discontinue Accu-Cheks. These were ordered when the patient was n.p.o. She is getting dextrose in her fluids. This should make up for poor appetite. Acute kidney injury continues to improve. On meropenem for ESBL E. coli Mechanical soft diet ordered patient not participating particularly well. We will continue dextrose containing fluid. 02/12/2020 No new complaints. Hypernatremia-sodium is down to 150. Hypokalemia-potassium is 3.4 despite putting potassium chloride in the IV fluid. I will increase the rate of the fluid and recheck tomorrow. Appetite is still poor. Acute kidney injury-BUN and creatinine continue to improve. ESBL E. coli-continue meropenem The patient is actually stable and I will downgrade from IMCU to medical floor. 02/13/2020 Hypernatremia-serum sodium is now normal. Will decrease fluid rate to 100 mL an hour and monitor serum sodium. The goal will be to discontinue the D5W with potassium and implement potassium supplements. Hypokalemia-serum potassium is now 3.9. Once we decrease the rate of the D5W with potassium this may drop. We will need to order either IV or p.o. supplement. Acute kidney injury-GFR continues to improve and is now up to 40. We will continue to monitor both renal function as well as intake and output. ESBL E. coli-meropenem through 02/16/2020. I have added lactobacillus as the patient is still having diarrhea. 02/14/2020 ESBL E. coli urinary tract infection-meropenem through 02/16/2020 and then return to long-term care Hyponatremia-no labs today. Recheck tomorrow. Hypokalemia-potassium corrected yesterday. Recheck labs tomorrow. Acute kidney injury-continuing IV fluid. Kidney function should continue to improve. History of stroke-the patient actually had the initial stroke several years ago and not several weeks ago. She will return to the long-term care facility. Anticipate discharge after IV antibiotics as outlined above. 02/15/2020 ESBL E. coli-on IV meropenem. February 16, 2020 and then returns to long-term care Hyponatremia-serum sodium normal and stable Hypokalemia-potassium just under the lower limit normal. Will add an oral dose. Hypomagnesemia-serum magnesium was only 1.1. 3 g IV has been ordered. Acute kidney injury-GFR is now over 50 and continues to improve. No change in treatment plan. Chronic significant debility from stroke-supportive care. No acute intervention . 02/16/2020 The patient pulled out her midline. She hit the nurse when she attempted to put a peripheral IV in. The bacteria are sensitive to cefoxitin. Cefoxitin could be administered intramuscularly. I have ordered the remaining dose of antibiotics with intramuscular cefoxitin. This will complete her therapy and she should be able to return to her long-term care facility tomorrow. Hyponatremia-serum sodium get just below the lower limit normal this is not clinically significant Hypokalemia-potassium currently in normal range Hypomagnesemia-with the intravenous magnesium she is back in the normal range. Acute kidney injury-BUN and creatinine are now normal. 02/17/2020 Patient has completed treatment for ESBL UTI. Got blood work on patient today metabolic panel shows worsening of patient's bicarbonate levels. It seems that she is starting to develop metabolic acidosis again. She is resistant to getting lab draws and as such, we may not be able to get a venous blood gas to fully assess what is going on. Her metabolic acidosis on admission was thought to be 2/2 Uremia and high volume rescuscitation. Her renal renal function currently is not too bad. We will start patient on p.o. sodium bicarbonate supplements. Anion gap is normal raising question for RTA versus GI losses. - Time Time Spent with patient: Less than 15 minutes Anticipated Discharge Disposition: Shelter Facility Anticipated Discharge Timeframe: within 36 hours
[2020-02-17] MEDS ORDERED: LOPERAMIDE HCL 2 MG CAPSULE PO PRN (14:22)
[2020-02-17 15:43] LABS: VENOUS BLOOD BASE EXCESS -11.7 mmol/L; VENOUS BLOOD HCO3 13.3 mmol/L (20-32); VENOUS BLOOD PCO2 27.5 mmHg (35-63); VENOUS BLOOD PH 7.3 (7.30-7.42)
[2020-02-17] MEDS: SODIUM BICARBONATE 650 MG TABLET PO SCH ×2 (18:19→22:49)
[2020-02-17] MEDS: MELATONIN 3 MG TABLET PO SCH (23:15)
[2020-02-17] MEDS: LATANOPROST 0.005% OPH SOLN 2.5 ML OP SCH (23:15)
[2020-02-18] MEDS: HEPARIN SOD (PORCINE) 5,000 UNIT/ML 1 ML VIAL SUBCUT SCH ×3 (05:06→21:27)
[2020-02-18] MEDS: SODIUM BICARBONATE 650 MG TABLET PO SCH (11:43)
[2020-02-18] MEDS: POTASSIUM CHLORIDE 20 MEQ PACKET PO SCH (11:44)
[2020-02-18] MEDS: LISINOPRIL 10 MG TABLET PO SCH (11:44)
[2020-02-18] MEDS: LACTOBACILLUS ACIDOPHILUS 250 MG TAB PO SCH ×2 (11:44→21:22)
[2020-02-18] MEDS: NORMAL SALINE INJ/PF 0.9% 10 ML SDV IV SCH ×2 (11:44→21:22)
[2020-02-18] MEDS: CHOLECALCIFEROL (D3) 1,000 UNIT (25 MCG) TABLET PO SCH (11:48)
[2020-02-18 14:16] LABS: ANION GAP 13 (5-19); BLOOD UREA NITROGEN 14 mg/dL (7-20); CALCIUM 9.7 mg/dL (8.4-10.2); CARBON DIOXIDE 15 mmol/L (22-30); CHLORIDE 118 mmol/L (98-107); GLUCOSE 90 mg/dL (75-110); POTASSIUM 5.4 mmol/L (3.6-5.0)
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
[2020-02-18] MEDS: LATANOPROST 0.005% OPH SOLN 2.5 ML OP SCH (21:27)
[2020-02-18] MEDS: MELATONIN 3 MG TABLET PO SCH (21:27)
[2020-02-19] MEDS: SODIUM BICARBONATE 650 MG TABLET PO SCH ×2 (01:36→10:31)
[2020-02-19] MEDS: HEPARIN SOD (PORCINE) 5,000 UNIT/ML 1 ML VIAL SUBCUT SCH ×2 (05:52→14:55)
[2020-02-19] MEDS: LACTOBACILLUS ACIDOPHILUS 250 MG TAB PO SCH (10:33)
[2020-02-19] MEDS: NORMAL SALINE INJ/PF 0.9% 10 ML SDV IV SCH (10:33)
[2020-02-19] MEDS: CHOLECALCIFEROL (D3) 1,000 UNIT (25 MCG) TABLET PO SCH (10:34)
[2020-02-19] MEDS: LISINOPRIL 10 MG TABLET PO SCH (10:34)
[2020-02-19 11:57] VITALS: BP 158/83
--- NOTE | 2020-02-19 12:20 | PDOC TRANSFER SUMMARY ---
Impression - Admit/DC Date/PCP Admission Date/Primary Care Provider: 02/06/20 00:55 BETTY GARCIA Discharge Date: 02/19/20 - Discharge Diagnosis (1) Acute kidney injury Is this a current diagnosis for this admission?: Yes (2) Metabolic acidosis Is this a current diagnosis for this admission?: Yes (3) Severe dehydration Is this a current diagnosis for this admission?: Yes (4) Hypernatremia Is this a current diagnosis for this admission?: Yes (5) UTI due to extended-spectrum beta lactamase (ESBL) producing Escherichia coli Is this a current diagnosis for this admission?: Yes (6) Stage II pressure sore Is this a current diagnosis for this admission?: Yes (7) Hemiparesis due to old stroke Is this a current diagnosis for this admission?: Yes (8) Encephalomalacia with cerebral infarction Is this a current diagnosis for this admission?: Yes - Additional Information Resuscitation Status: Full Code Referrals: [facility]/Rehab [Outside] Home Medications: Lisinopril [Prinivil 10 mg Tablet] 20 mg PO QAM 06/02/14 Latanoprost [Xalatan 0.005% Oph Soln 2.5 ml] 1 drop OP QHS 10/12/16 Cholecalciferol (Vitamin D3) [Vitamin D3 1000 Unit Tablet] 2,000 unit PO DAILY 02/06/20 Hydrocodone/Acetaminophen [[place] 5-325 mg Tablet] 1 tab PO BID 02/06/20 Lanolin Alcohol/Mo/W.pet/[place] [Eucerin Creme] 1 applic TP DAILY 02/06/20 Melatonin [Melatin] 3 mg PO QHS 02/06/20 History of Present Illiness History of Present Illness: According to admitting provider: 64-year-old female with a remote history of intracranial bleed, CAD status post ND and GERD. She was admitted from a [facility] following a COVID-19 infection 3 weeks ago complicated by a CVA. Over the past 48 hours, patient has had very limited activity and has not had any p.o. intake. She presented with mental status changes, hypotension and severe metabolic derangement. Initially, her potassium was 7.0, sodium bicarb was 9 and BUN/CR was 219/16. She received multiple fluid boluses in the emergency department as well as insulin and glucose which improved her potassium to 5.1 and her BUN/CR is also trending downward. Her hypotension also improved with increased fluids. Hospital Course Hospital Course: On presentation, patient was noted to be in acute renal failure with severe metabolic acidosis and severe dehydration with hypernatremia. Venous blood gas was significant for pH of 7.12 with bicarb of 10.5. Anion gap was 23. Creatinine was 16, potassium 7 and hypernatremia of 154. Blood glucose was normal on initial presentation. Patient was also hypotensive. Patient was directly admitted to the ICU for IV fluid resuscitation. It was thought that her acute renal failure was secondary to severe dehydration and was also responsible for her severe metabolic acidosis and hyperkalemia. Renal ultrasound was done. Also had CAT scan abdomen/pelvis which shows a severely atrophic left kidney but otherwise adequate right kidney. She was in the ICU for a few days and her blood work improved. Hypernatremia improved. She was later downgraded to the floor and continued on IV fluids. She was noted to have urinary tract infection and was initially started on Rocephin. Urine culture however grew ESBL E. coli so she was switched to meropenem which she has received for 6 days to complete treatment. Regarding patient's renal function, her last measured creatinine was 1.2. Patient also has received a head CT while in the hospital which was negative for any acute stroke. It did show evidence of old left temporal lobe stroke as well as encephalomalacia within the region. I do suspect the patient likely has Vascular dementia and I would recommend evaluation by a neurologist for definitive diagnosis. I have discussed this with patient's daughter who lives in [place]. I have also discussed with her the fact that patient mostly refuses blood work, does not communicate much though she is always fully alert and awake. she seems to use head-nodding and one-word responses for her interactions. She also very often refuses medications and is not good at eating and drinking adequate amount of food and fluids. As a result, is very likely that this dehydration may occur again and may cause recurrence of renal failure. She pulls out everything including her IV lines and will likely be a poor candidate for Dobbhoff/G-tube. I have discussed with patient's daughter to discuss with her sibling regarding advanced directive, code status and goals of care including palliative care goals regarding their mom. Please follow this up at the SNF. Physical Exam Vital Signs: Temp Pulse Resp BP Pulse Ox 97.7 F 93 16 158/83 H 97 02/19/20 11:17 02/19/20 11:17 02/19/20 11:17 02/19/20 11:17 02/19/20 11:17 Intake & Output 02/18/20 02/19/20 02/20/20 06:59 06:59 06:59 Intake Total 50 Output Total 260 Balance -210 Weight 40.1 kg 40.4 kg General appearance: PRESENT: no acute distress. ABSENT: cooperative Neck exam: ABSENT: JVD Respiratory exam: PRESENT: symmetrical, unlabored. ABSENT: tachypnea, wheezes Cardiovascular exam: PRESENT: RRR, +S1, +S2. ABSENT: tachycardia GI/Abdominal exam: PRESENT: soft. ABSENT: rebound, rigid, tenderness Neurological exam: PRESENT: alert, awake, oriented to person. ABSENT: oriented to place, oriented to time, oriented to situation Results Laboratory Results: WBC 10.4 10^3/uL (4.0-10.5) 02/17/20 10:35 RBC 3.56 10^6/uL (3.72-5.28) L 02/17/20 10:35 Hgb 11.2 g/dL (12.0-15.5) L 02/17/20 10:35 Hct 32.1 % (36.0-47.0) L 02/17/20 10:35 MCV 90 fl (80-97) 02/17/20 10:35 MCH 31.5 pg (27.0-33.4) 02/17/20 10:35 MCHC 35.0 g/dL (32.0-36.0) 02/17/20 10:35 RDW 16.7 % (11.5-14.0) H 02/17/20 10:35 Plt Count 266 10^3/uL (150-450) 02/17/20 10:35 Lymph % (Auto) 17.3 % (13-45) 02/17/20 10:35 [place] % (Auto) 10.8 % (3-13) 02/17/20 10:35 Eos % (Auto) 4.5 % (0-6) 02/17/20 10:35 Baso % (Auto) 0.9 % (0-2) 02/17/20 10:35 Absolute Neuts (auto) 6.9 10^3/uL (1.7-8.2) 02/17/20 10:35 Absolute Lymphs (auto) 1.8 10^3/uL (0.5-4.7) 02/17/20 10:35 Absolute Monos (auto) 1.1 10^3/uL (0.1-1.4) 02/17/20 10:35 Absolute Eos (auto) 0.5 10^3/uL (0.0-0.6) 02/17/20 10:35 Absolute Basos (auto) 0.1 10^3/uL (0.0-0.2) 02/17/20 10:35 Seg Neutrophils % 66.5 % (42-78) 02/17/20 10:35 Platelet Estimate Cancelled 02/07/20 04:24 PT 16.8 SEC (11.4-15.4) H 02/05/20 17:10 INR 1.34 02/05/20 17:10 Carbonic Acid 0.85 mmol/L (1.05-1.35) L 02/08/20 07:25 HCO3/H2CO3 Ratio 21:1 02/08/20 07:25 ABG pH 7.42 (7.35-7.45) 02/08/20 07:25 ABG pCO2 28.2 mmHg (35-45) L 02/08/20 07:25 ABG pO2 66.4 mmHg (80-100) L 02/08/20 07:25 ABG HCO3 17.9 mmol/L (20-24) L 02/08/20 07:25 ABG Total CO2 18.7 mmol/L (21-25) L 02/08/20 07:25 ABG O2 Saturation 93.9 % (94-98) L 02/08/20 07:25 ABG Base Excess -5.6 mmol/L 02/08/20 07:25 VBG pH 7.30 (7.30-7.42) 02/17/20 15:03 VBG pCO2 27.5 mmHg (35-63) L 02/17/20 15:03 VBG HCO3 13.3 mmol/L (20-32) L 02/17/20 15:03 VBG Base Excess -11.7 mmol/L 02/17/20 15:03 FiO2 ROOM AIR 02/08/20 07:25 Sodium 145.5 mmol/L (137-145) H 02/18/20 13:48 Potassium 5.4 mmol/L (3.6-5.0) H 02/18/20 13:48 Chloride 118 mmol/L (98-107) H 02/18/20 13:48 Carbon Dioxide 15 mmol/L (22-30) L 02/18/20 13:48 Anion Gap 13 (5-19) 02/18/20 13:48 BUN 14 mg/dL (7-20) 02/18/20 13:48 Creatinine 1.24 mg/dL (0.52-1.25) 02/18/20 13:48 Est GFR ( Amer) 53 (>60) L 02/18/20 13:48 Est GFR (Non-Af Amer) Cancelled 02/06/20 06:40 Est GFR (MDRD) Non-Af 44 (>60) L 02/18/20 13:48 Glucose 90 mg/dL (75-110) 02/18/20 13:48 POC Glucose 157 mg/dL (70-110) H 02/11/20 11:42 Lactic Acid 1.4 mmol/L (0.7-2.1) 02/06/20 00:30 Calcium 9.7 mg/dL (8.4-10.2) 02/18/20 13:48 Phosphorus 5.9 mg/dL (2.5-4.5) H 02/07/20 04:24 Magnesium 2.0 mg/dL (1.6-2.3) 02/18/20 13:48 Total Bilirubin 0.7 mg/dL (0.2-1.3) 02/17/20 10:35 Direct Bilirubin 0.2 mg/dL (0.0-0.4) 02/17/20 10:35 Neonat Total Bilirubin Not Reportable 02/17/20 10:35 Neonat Direct Bilirubin Not Reportable 02/17/20 10:35 Neonat Indirect Bili Not Reportable 02/17/20 10:35 AST 27 U/L (14-36) 02/17/20 10:35 ALT 43 U/L (<35) H 02/17/20 10:35 Alkaline Phosphatase 151 U/L (38-126) H 02/17/20 10:35 Troponin I 0.065 ng/mL 02/05/20 17:10 NT-Pro-B Natriuret Pep 21721 pg/mL (<125) H 02/08/20 04:35 Total Protein 6.6 g/dL (6.3-8.2) 02/17/20 10:35 Albumin 3.5 g/dL (3.5-5.0) 02/17/20 10:35 EGFR Cancelled 02/06/20 06:40 TSH 1.33 uIU/mL (0.47-4.68) 02/05/20 22:25 Urine Color YELLOW 02/05/20 19:43 Urine Appearance TURBID 02/05/20 19:43 Urine pH 5.0 (5.0-9.0) 02/05/20 19:43 Ur Specific [place] 1.018 02/05/20 19:43 Urine Protein 100 mg/dL (NEGATIVE) H 02/05/20 19:43 Urine Glucose (UA) NEGATIVE mg/dL (NEGATIVE) 02/05/20 19:43 Urine Ketones TRACE mg/dL (NEGATIVE) H 02/05/20 19:43 Urine Blood SMALL (NEGATIVE) H 02/05/20 19:43 Urine Nitrite (Reflex) NEGATIVE (NEGATIVE) 02/05/20 19:43 Urine Bilirubin NEGATIVE (NEGATIVE) 02/05/20 19:43 Urine Urobilinogen NEGATIVE mg/dL (<2.0) 02/05/20 19:43 Leukocyte Esterase Rfl LARGE (NEGATIVE) H 02/05/20 19:43 Urine RBC (Auto) 33 /HPF 02/05/20 19:43 U Hyaline Cast (Auto) 11 /LPF 02/05/20 19:43 Urine Bacteria (Auto) 2+ /HPF 02/05/20 19:43 Urine WBC (Reflex) > 182 /HPF 02/05/20 19:43 Urine WBC Clumps MANY /HPF 02/05/20 19:43 Squamous Epi Cells Auto 10 /HPF 02/05/20 19:43 Urine Mucus (Auto) FEW /LPF 02/05/20 19:43 Urine Ascorbic Acid 40 (NEGATIVE) H 02/05/20 19:43 Stl C. Difficile GDH Ag NEGATIVE (NEGATIVE) 02/08/20 02:30 Stl C.difficile Tox A&B NEGATIVE (NEGATIVE) 02/08/20 02:30 Influenza A (RT-PCR) NEGATIVE (NEGATIVE) 02/06/20 02:59 Influenza B (RT-PCR) NEGATIVE (NEGATIVE) 02/06/20 02:59 RSV (RT-PCR) NEGATIVE (NEGATIVE) 02/06/20 02:59 SARS-CoV-2 Rap RNA(RT-PCR) NEGATIVE (NEGATIVE) 02/06/20 02:59 Slides for Path Review Cancelled 02/07/20 04:24 02/05/20 02/06/20 02/07/20 17:10 06:40 04:24 Troponin I 0.065 NT-Pro-B Natriuret Pep 2900 H 7740 H 02/08/20 04:35 Troponin I NT-Pro-B Natriuret Pep 73540 H Impressions: Chest X-Ray 02/05/20 18:02 IMPRESSION: NO ACUTE RADIOGRAPHIC FINDING IN THE CHEST. 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 Right maxillary sinus disease. No acute finding. EVIDENCE OF ACUTE STROKE: NO. Renal Ultrasound 02/05/20 20:16 IMPRESSION: No definite acute findings. Chest X-Ray 02/07/20 06:00 IMPRESSION: MILD CARDIOMEGALY AND VASCULAR CONGESTION. NO OTHER SIGNIFICANT FINDINGS. Abdomen/Pelvis CT 02/09/20 00:00 IMPRESSION: 1. 10 x 7 mm left adrenal myelolipoma (image 67 of series 601). 2. 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 3. Quintero catheter within the urinary bladder. 3. Severe atrophy of the left kidney. Chest X-Ray 02/16/20 07:55 IMPRESSION: Left arm PICC has been removed. Improved aeration with minimal left basilar opacities, likely atelectasis. Plan Time Spent: Greater than 30 Minutes Stroke Is this a Stroke Patient?: No Acute Heart Failure Is this a Heart Failure Patient?: No
== END 2020-02-19 17:09 | DRG 871 ==
LOC: ER 16:38 → EH 02-06 00:55 → ICU 02-06 03:08 → UNDODISIN 02-08 13:56 → 3W 02-08 17:01 → 3S 02-09 17:48 → 4S 02-13 12:08
PROVIDERS: ADMIT Internal Medicine Critical Care Medicine; ATTEND Internal Medicine
PROC: B24BZZ4 Ultrasonography of Heart with Aorta, Transesophageal (ICD-10-PCS; principal; 2020-02-09)
DX: A41.9 Sepsis, unspecified organism (principal); N17.0 Acute kidney failure with tubular necrosis; E87.0 Hyperosmolality and hypernatremia; Z16.12 Extended spectrum beta lactamase (ESBL) resistance; I69.359 Hemiplegia and hemiparesis following cerebral infarction affecting unspecified side; N30.00 Acute cystitis without hematuria; E87.2 Acidosis; I95.9 Hypotension, unspecified; E86.0 Dehydration; B96.20 Unspecified Escherichia coli [E. coli] as the cause of diseases classified elsewhere; G93.89 Other specified disorders of brain; I25.10 Atherosclerotic heart disease of native coronary artery without angina pectoris; K21.9 Gastro-esophageal reflux disease without esophagitis; E87.5 Hyperkalemia; F01.50 Vascular dementia, unspecified severity, without behavioral disturbance, psychotic disturbance, mood disturbance, and anxiety; L89.312 Pressure ulcer of right buttock, stage 2; Z20.828 Contact with and (suspected) exposure to other viral communicable diseases; F32.9 Major depressive disorder, single episode, unspecified; E87.6 Hypokalemia; I10 Essential (primary) hypertension; R65.20 Severe sepsis without septic shock; I69.398 Other sequelae of cerebral infarction; I25.2 Old myocardial infarction; Z79.899 Other long term (current) drug therapy; Z85.3 Personal history of malignant neoplasm of breast; Z79.890 Hormone replacement therapy; Z88.6 Allergy status to analgesic agent; Z86.19 Personal history of other infectious and parasitic diseases
CPT/HCPCS: 36415; 36600; 70450; 71045; 74176; 76770; 80048; 80053; 81001; 82803; 82962; 83605; 83735; 83880; 84100; 84443; 84484; 85025; 85027; 85610; 87040; 87070; 87077; 87086; 87088; 87150; 87186; 87324; 87449; 93005; 93010; 93306; 96361; 96365; 96367; 96375; 99221; 99285; 99291; 0241U; C9803; J0692; J0694; J0696; J1642; J1644; J1815; J1940; J2185; J3370; J3475; J3480; J3490; J7030; J7060; J7120; P9047